=== PATIENT | male | born 1950 | race Caucasian/White ===

== ENCOUNTER 2023-08-30 08:54 | Outpatient (RCR) | payer MEDICARE, OTHER, SELFPAY ==
[2023-08-30 09:55] VITALS: BP 106/66; PULSE 76; RESP 18; TEMP 35.9; BMI 29.0
--- NOTE | 2023-08-30 10:40 | HP.PCM_ITS ---
History of Present Illness Date of Service: 08/30/23 Progress of Wound: 73-year-old male with a history of previously uncontrolled type 2 diabetes. Patient reports that his blood sugar daily basis now runs typically subone 50 and a recent A1c of 7.2. He presents today for right diabetic foot ulceration with infection. Patient denies any fever chills nausea vomiting chest pain calf pain shortness of breath. Patient notes that he does not have much feeling in his feet and rubbed a wound into his right foot when he went for a long walk in tight shoes. Since that time he has been seen by his primary care doctor who put him on antibiotics and had him perform daily foot soaks and application of antibiotic ointment. Patient presents today for further workup evaluation and treatment. 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 PFSH Allergy/AdvReac Type Severity Reaction Status Date / Time No Known Allergies Allergy Verified 08/30/23 09:55 Social History Smoking Status: Former smoker ROS Constitutional Constitutional: Denies body ache(s), change in weight or fever(s) Eyes Eyes: Denies acute decrease in peripheral vision, change in eye color or change in vision ENT HEENT: Denies abnormal hearing, bleeding gums or dysphagia Cardiovascular Cardiovascular: Reports edema and erythema on extremities Gastrointestinal Gastrointestinal: Denies belching, bloating or coffee ground emesis Genitourinary Genitourinary: Denies abdominal discomfort, anuria or difficulty urinating Musculoskeletal Musculoskeletal: Denies atrophy, back pain or joint swelling Vital Signs Vital Signs Vital Signs: 08/30/23 09:55 Temperature 96.7 F L Temperature Source Temporal Pulse Rate 76 Respiratory Rate 18 Blood Pressure 106/66 Blood Pressure Mean 79 Blood Pressure Source Monitor Blood Pressure Position Semi-Fowlers Blood Pressure Location Left Arm Weight Weight: 81.647 kg Body Mass Index (BMI) 29.0 Physical Exam Narrative Vascular: Dorsalis pedis and posterior tibial pulses to the right lower extremity are biphasic upon Doppler examination. There is diffuse pitting edema to the right lower extremity. Focal increase in warmth to right foot. Absent digital hair growth noted with shiny taut appearance of skin. Neurologic: Absent light touch protective sensation of bilateral feet. Dermatologic: Full-thickness wound to plantar heel down to subcutaneous tissue. Full-thickness wound to fifth metatarsal head and fifth toe down to level of bone with diffuse necrosis predebridement. Full-thickness wound to dorsal first metatarsal head. This necrotic predebridement. Full-thickness wound to the right fourth toe extending to the fourth interspace. All wounds demonstrate mild periwound erythema edema focal increase in warmth. Wound to the fifth metatarsal head and fifth toe are extend down to level bone with diffuse necrosis. Postdebridement wound demonstrates some granular bleeding. Pre and postdebridement measurements of all wounds documented in nursing notes. No evidence of deep purulence or abscess at this time. Musculoskeletal no evidence of wound forming deformity noted. Muscular strength full. No sign DVT. Const alert and oriented x3 Debridement Note Debridement Note Post-Debridement Measurements and Additional Note: Post-Debridement Measurements/Treatment - Nurse 1 - General Ulcer Assessment Start: 08/30/23 09:55 Freq: Status: Active Protocol: [email or web address] Activity Type Activity Date Activity User E-sign Co-sign Detail Recorded Client Recorded Date Recorded By Document 08/30/23 09:55 wound center 08/30/23 10:06 RB 08/30/23 09:55 - Today's Visit Information Type of service Initial Visit Arrival Mode Ambulatory Transfer Assistance None Patient Identification Verified (Name & Yes ) Patient Requires Transmission-Based No Precautions Finger Stick Blood Sugar(mg/dl) (if 110 indicated): Blood Sugar Stated by Patient Height and Weight Height 5 ft 6 in Weight 81.647 kg Weight in Pounds 180.0 lbs Body Mass Index (BMI) 29.0 BMI Classification Overweight BSA - [place]reyda 1.91 Vital Signs Temperature (97.8 F-99.1 F) 96.7 F L Temperature Source Temporal Pulse Rate (60-100) 76 Pulse Location Monitor Respiratory Rate (12-18) 18 Respiratory rate source Observation Blood Pressure (90/60-120/80) 106/66 Blood Pressure Mean 79 Source Monitor Position Semi-Fowlers Blood Pressure Location Left Arm History Since Last Visit- (Skip if this is Patient's initial visit) Have you changed medications since your No last visit? Any new allergies or adverse reactions No Had a fall/change in ADL's that may No increase risk of falls Signs or symptoms of abuse and/or No neglect since last visit Have you been in the hospital since your No last visit? Has dressing in place as prescribed Yes Has compression in place as prescribed No Has offloadiing in place as prescribed No Experienced any changes in pain level or No management Pain Scale: 0-10 Numeric Is Patient Pain Free? No R foot -Description Aching -Intensity 2 -Duration (hours) Acute -Pain Behavior Irritability -Pain Aggravating Factors Exercise/ Activity -Alleviating Factors/Interventions Medication -Effectiveness of Alleviating Factor/ Moderately Intervention effective Lower Extremity Assessment/ Foot Assessment/ Toe Nail Assessment Right -Posterior Tibial Doppler Multiphasic -Dorsalis Pedis Doppler Multiphasic -Extremity Color Red -Hair Growth on Legs No -Hair Growth on Toes No -Temperature of Extremity Hot -Capillary Refill Less than 3 Seconds -Dependent Rubor No -Other Deformity No -Prior Foot Ulcer No -Charcot Joint No -Prior Amputation No -Thick No -Discolored No -Deformed No -Improper Length & Hygeine Yes Left -Posterior Tibial Doppler Multiphasic -Dorsalis Pedis Doppler Multiphasic -Extremity Color Normal -Hair Growth on Legs No -Hair Growth on Toes No -Temperature of Extremity Warm -Capillary Refill Less than 3 Seconds -Dependent Rubor No -Blanched when Elevated No -Lipodermatosclerosis No -Other Deformity No -Prior Foot Ulcer No -Charcot Joint No -Prior Amputation No -Thick No -Discolored No -Deformed No -Improper Length & Hygeine Yes Neuropathy Assessment Feet - Top Side and Bottom <Entered> (a) Communication Assessment Preferred language [place] [employer] Facilities Rental Manager Required No Able to Read Yes Able to Write Yes Communication Tools None Right Hearing Abillity Hard of Hearing ,Use of Hearing Aid Left Hearing Abillity Hard of Hearing ,Use of Hearing Aid Visual Assistive Devices Glasses Functional Assessment Recent Decline in Ability to Perform Denies Any Declines Assistive Device With Patient No Culture/Yarsani/Centrifugal Chiller Technician Cultural/Yarsani Needs that may affect No Treatment Plan Would you allow our hospital cover assembler to No meet you for the purpose of spiritual/ emotional support? Centrifugal Chiller Technician to contact place of congregation No Teaching: Wound Center *Welcome to the Wound Center -Person Taught Patient,Family -Teaching Method Discussion -Response to teaching Verbalize understanding (a) 1 - + throughtout 2 - -throughout WC - Nurse 1 - General Ulcer Measurement Start: 08/30/23 09:55 Freq: Status: Active Protocol: Activity Type Activity Date Activity User E-sign Co-sign Detail Recorded Client Recorded Date Recorded By Document 08/30/23 09:55 RB wound center 08/30/23 10:06 RB 08/30/23 09:55 Wound Center Nurse 1 5. R 5th toe/ lateral foot -Combined with other wound No -Current Size (cm) - Length 6 -Current Size (cm) - Width 3 -Current Size (cm) - Depth 0.1 -Total Square Cm 18 -Photo Taken Yes -Epithelialization None Present -Tunneling No -Undermining/Tunneling No -Circular Undermining No -Exudate Amt Medium -Exudate Type Serosanguineous -Wound Margin Distinct, Outline Attached -Granulation Amt Small (1-33%) -Granulation Quality N/A -Slough/Fibrin Yes -Necrosis Amt Medium (34-66%) -Necrotic Tissue Type Eschar -Structure Exposed N/A -Texture (Shikha-wound Skin Appearance) Localized Edema -Moisture (Shikha-wound Skin Appearance) Maceration -Color (Shikha-wound Skin Appearance) Erythema -Temperature (Shikha-wound Skin No Abnormality Appearance) (Pt Warm) -Tenderness on Palpation (Shikha-wound No Skin Appearance) -Ulcer Cleansing Wound Cleanser -Foul Odor after Cleansing Yes, Due to Product Use -Anesthetic Used 4% Lidocaine Solution 4. R 4th toe -Combined with other wound No -Current Size (cm) - Length 1 -Current Size (cm) - Width 1 -Current Size (cm) - Depth 0.1 -Total Square Cm 1 -Photo Taken Yes -Tunneling No -Undermining/Tunneling No -Circular Undermining No -Exudate Amt Medium -Exudate Type Serosanguineous -Wound Margin Distinct, Outline Attached -Granulation Amt Medium (34-66%) -Granulation Quality [place] -Slough/Fibrin Yes -Necrosis Amt Large (67-100%) -Necrotic Tissue Type Adherent Slough -Structure Exposed N/A -Texture (Shikha-wound Skin Appearance) Assessed -Moisture (Shikha-wound Skin Appearance) Maceration -Color (Shikha-wound Skin Appearance) Erythema -Temperature (Shikha-wound Skin No Abnormality Appearance) (Pt Warm) -Tenderness on Palpation (Shikha-wound No Skin Appearance) -Ulcer Cleansing Wound Cleanser -Foul Odor after Cleansing No -Anesthetic Used 4% Lidocaine Solution 3. R 3rd toe -Combined with other wound No -Current Size (cm) - Length 3 -Current Size (cm) - Width 2 -Current Size (cm) - Depth 0.1 -Total Square Cm 6 -Photo Taken Yes -Tunneling No -Undermining/Tunneling No -Circular Undermining No -Exudate Amt Medium -Exudate Type Serosanguineous -Wound Margin Distinct, Outline Attached -Granulation Amt Medium (34-66%) -Granulation Quality [place] -Slough/Fibrin Yes -Necrosis Amt Medium (34-66%) -Necrotic Tissue Type Adherent Slough -Structure Exposed N/A -Texture (Shikha-wound Skin Appearance) Assessed -Moisture (Shikha-wound Skin Appearance) Assessed, Weeping -Color (Shikha-wound Skin Appearance) Erythema -Temperature (Shikha-wound Skin No Abnormality Appearance) (Pt Warm) -Tenderness on Palpation (Shikha-wound No Skin Appearance) -Ulcer Cleansing Wound Cleanser -Foul Odor after Cleansing No -Anesthetic Used 4% Lidocaine Solution 2. R heel -Combined with other wound No -Current Size (cm) - Length 2.5 -Current Size (cm) - Width 3.3 -Current Size (cm) - Depth 0.1 -Total Square Cm 8.25 -Photo Taken Yes -Tunneling No -Undermining/Tunneling No -Circular Undermining No -Exudate Amt Medium -Exudate Type Serosanguineous -Wound Margin Distinct, Outline Attached -Granulation Amt Large (67-100%) -Granulation Quality [place] -Slough/Fibrin Yes -Necrosis Amt Medium (34-66%) -Necrotic Tissue Type Adherent Slough -Structure Exposed N/A -Texture (Shikha-wound Skin Appearance) Assessed -Moisture (Shikha-wound Skin Appearance) No Abnormality -Color (Shikha-wound Skin Appearance) Assessed -Temperature (Shikha-wound Skin No Abnormality Appearance) (Pt Warm) -Ulcer Cleansing Wound Cleanser -Foul Odor after Cleansing No -Anesthetic Used 4% Lidocaine Solution 1. R foot medial -Combined with other wound No -Current Size (cm) - Length 1 -Current Size (cm) - Width 1.1 -Current Size (cm) - Depth 0.2 -Total Square Cm 1.1 -Photo Taken Yes -Tunneling No -Undermining/Tunneling No -Circular Undermining No -Exudate Amt Large -Exudate Type Serosanguineous -Wound Margin Distinct, Outline Attached -Granulation Amt Small (1-33%) -Granulation Quality [place] -Slough/Fibrin Yes -Necrosis Amt Large (67-100%) -Necrotic Tissue Type Adherent Slough -Structure Exposed N/A -Texture (Shikha-wound Skin Appearance) Localized Edema -Color (Shikha-wound Skin Appearance) Assessed, Erythema -Temperature (Shikha-wound Skin No Abnormality Appearance) (Pt Warm) -Tenderness on Palpation (Shikha-wound No Skin Appearance) -Ulcer Cleansing Wound Cleanser -Foul Odor after Cleansing No -Anesthetic Used 4% Lidocaine Solution Lower Limb Edema Present Yes Right Calf (cm) 35 Right Ankle (cm) 23 Left Calf (cm) 33.5 Left Ankle (cm) 22 Assessment/Plan Assessment/Plan (1) Cellulitis of right lower limb: CODE(S): L03.115 - Cellulitis of right lower limb PLAN: Exam performed. Patient has at minimum cellulitis. Patient is on Augmentin and Bactrim per primary care physician. Today radiographs of the right foot were ordered to rule out any deep infection such as osteomyelitis. Arterial and venous studies were ordered for baseline purposes. Wound to the right fifth metatarsal head and fifth toe were excisionally debrided down to and including level of bone while the remaining wounds were all debrided down to level of subcutaneous tissue of all nonviable tissue using a pickup 15 blade and 7 mm dermal curette. No anesthesia due to neuropathy. Pre and postdebridement measurements documented nursing notes. Hemostasis obtained with light compression. Patient tolerated procedure well. Wound flushed and cultured. Will continue current antibiotics and recommend changes based on culture results. Recommend discontinuation of daily foot soaks. Today patient was dressed with Betadine gauze dry sterile dressing and double Tubigrip. Patient will perform these dressings on a daily basis per self-care. Patient will maintain protected weightbearing in a surgical shoe with minimal weight to right foot assisted by a walker. Ultimately I am recommending nonweightbearing and minimal ambulation. Patient follow-up in 1 week if there is any worsening patient will go to the ER or will consider hospital admission on next follow-up visit. (2) Non-pressure chronic ulcer of other part of right foot with necrosis of bone: CODE(S): L97.514 - Non-pressure chronic ulcer of other part of right foot with necrosis of bone (3) Non-pressure chronic ulcer of other part of right foot with fat layer exposed: CODE(S): L97.512 - Non-pressure chronic ulcer of other part of right foot with fat layer exposed (4) Type 2 diabetes mellitus with diabetic polyneuropathy: CODE(S): E11.42 - Type 2 diabetes mellitus with diabetic polyneuropathy (5) Other specified peripheral vascular diseases: CODE(S): I73.89 - Other specified peripheral vascular diseases
--- NOTE | 2023-08-30 11:40 | RAD_ITS ---
STUDY: X-RAY - RIGHT FOOT CLINICAL: Male, 73 years old. WOUND TECHNIQUE: 3 views of the right foot. COMPARISON: None. FINDINGS: Intact talus, calcaneus, and tarsal bones. There are plantar and posterior calcaneal spurs. Normal visualized subtalar, talonavicular, calcaneocuboid, tarsal and tarsometatarsal articulations. Normal metatarsi. There is mild degenerative arthrosis at the first MTP joint. Normal tibial and fibular sesamoid bones. Normal interphalangeal joint of the great toe. Normal phalanges of the great toe. Normal second through fifth metatarsophalangeal joints. Normal interphalangeal joints and phalanges of the lesser toes. There is no demonstrated fracture. There is soft tissue swelling around the forefoot. There are atherosclerotic calcifications. 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 Soft tissue swelling around the forefoot. Plantar and posterior calcaneal spurs. Electronically Signed: Segun Sanders MD at 12:40 EDT ,
--- NOTE | 2023-09-01 11:44 | WC ---
08/30/2023 RIGHT MEDIAL FOOT
--- NOTE | 2023-09-01 11:53 | WC ---
08/30/2023 RIGHT 5TH TOE LATERAL FOOT
--- NOTE | 2023-09-01 11:56 | WC ---
08/30/2023 RIGHT 3RD TOE
== END 2023-09-02 23:59 | disposition home or self-care (01) ==
LOC: WC 08:54
PROVIDERS: PCP Family Medicine; Referring Provider Family Medicine; Visit Provider Podiatrist
DX: E11.621 Type 2 diabetes mellitus with foot ulcer (principal); L97.514 Non-pressure chronic ulcer of other part of right foot with necrosis of bone; L97.512 Non-pressure chronic ulcer of other part of right foot with fat layer exposed; E11.42 Type 2 diabetes mellitus with diabetic polyneuropathy; E11.51 Type 2 diabetes mellitus with diabetic peripheral angiopathy without gangrene; L03.115 Cellulitis of right lower limb; Z87.891 Personal history of nicotine dependence
CPT/HCPCS: 11042; 11044; 73630; 87070; 87075; 87205; 99204; G0463

== ENCOUNTER 2023-09-27 10:15 | Outpatient (RCR) | payer MEDICARE, OTHER, SELFPAY ==
[2023-09-03 02:41] VITALS: BP 106/66; PULSE 76; RESP 18; TEMP 35.9; BMI 29.0
[2023-09-06 10:00] VITALS: BP 141/63; PULSE 79; RESP 18; TEMP 35.9; BMI 29.0
--- NOTE | 2023-09-06 10:28 | PN.PCM_ITS ---
History of Present Illness Date of Service: 09/06/23 Progress of Wound: 73-year-old male with a history of previously uncontrolled type 2 diabetes. Patient reports that his blood sugar daily basis now runs typically subone 50 and a recent A1c of 7.2. He presents today for right diabetic foot ulceration with infection. Patient denies any fever chills nausea vomiting chest pain calf pain shortness of breath. Patient notes that he does not have much feeling in his feet and rubbed a wound into his right foot when he went for a long walk in tight shoes. Since that time he has been seen by his primary care doctor who put him on antibiotics and had him perform daily foot soaks and application of antibiotic ointment. Patient presents today for further workup evaluation and treatment. 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 No changes today. Objective Data Objective Data Vital Signs: Vital Signs Temp Pulse Resp BP 96.7 F L 79 18 141/63 H 09/06/23 10:00 09/06/23 10:00 09/06/23 10:00 09/06/23 10:00 Weight: 81.647 kg Body Mass Index (BMI) 29.0 Physical Exam Narrative Neurovascular status unchanged from previous visit. Dry stable eschar to the right fifth fourth and third toes extending down the level of bone. No acute signs of infection. Musculoskeletal: No evidence of wound forming deformities. Muscular strength full. No evidence DVT bilaterally. Debridement Note Debridement Note Post-Debridement Measurements and Additional Note: Post-Debridement Measurements/Treatment - Nurse 1 - General Ulcer Assessment Start: 09/06/23 09:59 Freq: Status: Active Protocol: [email or web address] Activity Type Activity Date Activity User E-sign Co-sign Detail Recorded Client Recorded Date Recorded By Document 09/06/23 10:00 wound center 09/06/23 10:05 RB 09/06/23 10:00 - Today's Visit Information Type of service Follow-up Visit (Physician/[facility] ) Arrival Mode Ambulatory Transfer Assistance None Patient Identification Verified (Name & Yes ) Patient Requires Transmission-Based No Precautions Height and Weight Body Mass Index (BMI) 29.0 BMI Classification Overweight Vital Signs Temperature (97.8 F-99.1 F) 96.7 F L Temperature Source Temporal Pulse Rate (60-100) 79 Pulse Location Monitor Respiratory Rate (12-18) 18 Respiratory rate source Observation Blood Pressure (90/60-120/80) 141/63 H Blood Pressure Mean (mm Hg) 89 Source Monitor Position Semi-Fowlers Blood Pressure Location Left Arm History Since Last Visit- (Skip if this is Patient's initial visit) Have you changed medications since your No last visit? Any new allergies or adverse reactions No Had a fall/change in ADL's that may No increase risk of falls Signs or symptoms of abuse and/or No neglect since last visit Have you been in the hospital since your No last visit? Has dressing in place as prescribed Yes Has compression in place as prescribed Yes Has offloadiing in place as prescribed No Experienced any changes in pain level or No management Pain Scale: 0-10 Numeric Is Patient Pain Free? Yes WC - Nurse 1 - General Ulcer Measurement Start: 09/06/23 09:59 Freq: Status: Active Protocol: Activity Type Activity Date Activity User E-sign Co-sign Detail Recorded Client Recorded Date Recorded By Document 09/06/23 10:00 wound center 09/06/23 10:05 RB 09/06/23 10:00 Wound Center Nurse 1 5. R 5th toe/ lateral foot -Combined with other wound No -Current Size (cm) - Length 4.5 -Current Size (cm) - Width 1.5 -Current Size (cm) - Depth 0.1 -Total Square Cm 6.75 -Tunneling No -Undermining/Tunneling No -Circular Undermining No -Exudate Amt Medium -Exudate Type Serosanguineous -Wound Margin Distinct, Outline Attached -Granulation Amt Small (1-33%) -Granulation Quality [place] -Slough/Fibrin Yes -Necrosis Amt Large (67-100%) -Necrotic Tissue Type Eschar -Structure Exposed N/A -Texture (Shikha-wound Skin Appearance) Assessed -Moisture (Shikha-wound Skin Appearance) Assessed -Color (Shikha-wound Skin Appearance) Erythema -Temperature (Shikha-wound Skin No Abnormality Appearance) (Pt Warm) -Tenderness on Palpation (Shikha-wound No Skin Appearance) -Ulcer Cleansing Wound Cleanser -Foul Odor after Cleansing No -Anesthetic Used 4% Lidocaine Solution 4. R 4th toe -Combined with other wound No -Current Size (cm) - Length 3 -Current Size (cm) - Width 1 -Current Size (cm) - Depth 0.2 -Total Square Cm 3 -Tunneling No -Undermining/Tunneling No -Circular Undermining No -Exudate Amt Medium -Exudate Type Serosanguineous -Wound Margin Distinct, Outline Attached -Granulation Amt Small (1-33%) -Granulation Quality [place] -Slough/Fibrin Yes -Necrosis Amt Medium (34-66%) -Necrotic Tissue Type Adherent Slough -Structure Exposed N/A -Texture (Shikha-wound Skin Appearance) Assessed -Moisture (Shikha-wound Skin Appearance) Assessed, Weeping -Color (Shikha-wound Skin Appearance) Assessed, Erythema -Temperature (Shikha-wound Skin No Abnormality Appearance) (Pt Warm) -Tenderness on Palpation (Shikha-wound No Skin Appearance) -Ulcer Cleansing Wound Cleanser -Foul Odor after Cleansing No -Anesthetic Used 4% Lidocaine Solution 3. R 3rd toe -Combined with other wound No -Current Size (cm) - Length 0.8 -Current Size (cm) - Width 0.5 -Current Size (cm) - Depth 0.2 -Total Square Cm 0.40 -Tunneling No -Undermining/Tunneling No -Circular Undermining No -Exudate Amt Medium -Exudate Type Serosanguineous -Wound Margin Distinct, Outline Attached -Granulation Amt Small (1-33%) -Granulation Quality [place] -Slough/Fibrin Yes -Necrosis Amt Medium (34-66%) -Necrotic Tissue Type Adherent Slough -Structure Exposed N/A -Texture (Shikha-wound Skin Appearance) Assessed -Moisture (Shikha-wound Skin Appearance) Weeping -Color (Shikha-wound Skin Appearance) Assessed, Erythema -Temperature (Shikha-wound Skin No Abnormality Appearance) (Pt Warm) -Tenderness on Palpation (Shikha-wound No Skin Appearance) -Ulcer Cleansing Wound Cleanser -Foul Odor after Cleansing No -Anesthetic Used 4% Lidocaine Solution 2. R heel -Combined with other wound No -Current Size (cm) - Length 2.5 -Current Size (cm) - Width 3.6 -Current Size (cm) - Depth 0.1 -Total Square Cm 9.00 -Tunneling No -Undermining/Tunneling No -Circular Undermining No -Exudate Amt Medium -Exudate Type Serosanguineous -Wound Margin Distinct, Outline Attached -Granulation Amt Medium (34-66%) -Granulation Quality [place] -Slough/Fibrin Yes -Necrosis Amt Medium (34-66%) -Necrotic Tissue Type Adherent Slough -Structure Exposed N/A -Texture (Shikha-wound Skin Appearance) Assessed -Moisture (Shikha-wound Skin Appearance) Assessed -Color (Shikha-wound Skin Appearance) Assessed -Temperature (Shikha-wound Skin No Abnormality Appearance) (Pt Warm) -Tenderness on Palpation (Shikha-wound No Skin Appearance) -Ulcer Cleansing Wound Cleanser -Foul Odor after Cleansing No -Anesthetic Used 4% Lidocaine Solution 1. R foot medial -Combined with other wound No -Current Size (cm) - Length 0.6 -Current Size (cm) - Width 2 -Current Size (cm) - Depth 0.1 -Total Square Cm 1.2 -Tunneling No -Undermining/Tunneling No -Circular Undermining No -Exudate Amt Medium -Exudate Type Serosanguineous -Wound Margin Distinct, Outline Attached -Granulation Amt Medium (34-66%) -Granulation Quality [place] -Slough/Fibrin Yes -Necrosis Amt Medium (34-66%) -Necrotic Tissue Type Eschar -Structure Exposed N/A -Texture (Shikha-wound Skin Appearance) Assessed -Moisture (Shikha-wound Skin Appearance) Assessed -Color (Shikha-wound Skin Appearance) Assessed -Temperature (Shikha-wound Skin No Abnormality Appearance) (Pt Warm) -Tenderness on Palpation (Shikha-wound No Skin Appearance) -Ulcer Cleansing Wound Cleanser -Foul Odor after Cleansing No -Anesthetic Used 4% Lidocaine Solution Lower Limb Edema Present Yes Right Calf (cm) 35 Right Ankle (cm) 20 WC - Nurse 2 - General Ulcer CM Notes Start: 09/06/23 09:59 Freq: Status: Active Protocol: Activity Type Activity Date Activity User E-sign Co-sign Detail Recorded Client Recorded Date Recorded By Document 09/06/23 10:16 [id number] 09/06/23 10:18 LO 09/06/23 10:16 Wound Center Nurse 2 5. R 5th toe/ lateral foot -Correct Patient No -Correct Side, Site, Position No -Correct Procedure No -Procedure Performed No -Wound/Ulcer Outcome Not Healed 4. R 4th toe -Correct Patient No -Correct Side, Site, Position No -Correct Procedure No -Procedure Performed No -Wound/Ulcer Outcome Not Healed 3. R 3rd toe -Correct Patient No -Correct Side, Site, Position No -Correct Procedure No -Procedure Performed No -Wound/Ulcer Outcome Not Healed 2. R heel -Correct Patient No -Correct Side, Site, Position No -Correct Procedure No -Procedure Performed No -Wound/Ulcer Outcome Not Healed 1. R foot medial -Correct Patient No -Correct Side, Site, Position No -Correct Procedure No -Procedure Performed No -Wound/Ulcer Outcome Not Healed Pain Scale: 0-10 Numeric Is Patient Pain Free? Yes - Nurse 3 - General Ulcer D/C NN Start: 09/06/23 09:59 Freq: Status: Active Protocol: Activity Type Activity Date Activity User E-sign Co-sign Detail Recorded Client Recorded Date Recorded By Document 09/06/23 10:23 wound center 09/06/23 10:25 KW 09/06/23 10:23 Wound Care Center Nurse 3 5. R 5th toe/ lateral foot -Other Dressing BETADINE GAUZE -Primary Dressing Covered/Secured with Dry Gauze & Roll Gauze 4. R 4th toe -Other Dressing BETADINE GAUZE -Primary Dressing Covered/Secured with Dry Gauze & Roll Gauze, Secured with Tape 3. R 3rd toe -Other Dressing BETADINE GAUZE -Primary Dressing Covered/Secured with Dry Gauze & Roll Gauze, Secured with Tape 2. R heel -Other Dressing BETADINE GAUZE -Primary Dressing Covered/Secured with Dry Gauze & Roll Gauze, Secured with Tape 1. R foot medial -Other Dressing BETADINE GAUZE -Primary Dressing Covered/Secured with Dry Gauze & Roll Gauze, Secured with Tape Right -Tubular Bandage Single Layer -Size of Tubigrip Used Size D -Size D ($) 1 Pain Scale: 0-10 Numeric Is Patient Pain Free? Yes - Visit Discharge Discharge Condition Stable Ambulatory Status Ambulatory Transportation Private Auto Medication Reconcilliation completed & No provided to patient/care provider Clinical Summary of Care Provided Yes Assessment/Plan Assessment/Plan (1) Cellulitis of right lower limb: CODE(S): L03.115 - Cellulitis of right lower limb PLAN: Exam performed. Wound cultures negative for growth. Patient will complete course of Bactrim/Augmentin. Radiographs negative for osteomyelitis. Arterial and venous studies -pending. Recommend discontinuation of daily foot soaks. Today patient was dressed with Betadine gauze dry sterile dressing and double Tubigrip. Patient will perform these dressings on a daily basis per self-care. Patient will maintain protected weightbearing in a surgical shoe with minimal weight to right foot assisted by a walker. Ultimately I am recommending nonweightbearing and minimal ambulation. Patient follow-up in 1 week if there is any worsening patient will go to the ER Patient will likely require vascular intervention pending arterial studies. A definitive amputation may need to be performed upon revascularization for definitive soft tissue closure. Will delay debridement until vascular status determined definitively. (2) Non-pressure chronic ulcer of other part of right foot with necrosis of bone: CODE(S): L97.514 - Non-pressure chronic ulcer of other part of right foot with necrosis of bone (3) Non-pressure chronic ulcer of other part of right foot with fat layer exposed: CODE(S): L97.512 - Non-pressure chronic ulcer of other part of right foot with fat layer exposed (4) Type 2 diabetes mellitus with diabetic polyneuropathy: CODE(S): E11.42 - Type 2 diabetes mellitus with diabetic polyneuropathy (5) Other specified peripheral vascular diseases: CODE(S): I73.89 - Other specified peripheral vascular diseases
--- NOTE | 2023-09-09 09:29 | ART_ITS ---
Reason For Study: RLE Wound Procedure A bilateral lower extremity continuous wave Doppler with analog waveform analysis,segmental pressures,and ankle brachial indexes without exercise. Left Segmental Pressures Left brachial= 158mmHg. Left posterior tibial artery = 186mmHg. Left dorsalis pedis artery = 212mmHg. Left digit = 129 mmHg. The left posterior tibial artery waveforms are biphasic. The left dorsalis pedis waveforms are triphasic. Right Segmental Pressures Right brachial= 168mmHg. Right posterior tibial artery = 190mmHg. Right dorsalis pedis artery = 201mmHg. Right digit = 113 mmHg. The right posterior tibial artery waveforms are biphasic. The right dorsalis pedis waveforms are biphasic. Indices The right ankle brachial index by the posterior tibial artery is 1.13. The right ankle brachial index by the dorsalis pedis is 1.20. The right digital-brachial index is 0.67. The left ankle brachial index by the posterior tibial artery is 1.11. The left ankle brachial index by the dorsalis pedis is 1.26. The left digital-brachial index is 0.77. VL/Lower Ext Art Exam w/o Exercis Interpretation Summary Biphasic Doppler waveforms are noted at ankle level on the right. Biphasic and triphasic Doppler waveforms are noted at ankle level on the left. Pulse-volume recordings appear satisfactory at all levels bilaterally. Resting ankle-brachial indices are normal bilaterally. The right digital- brachial index is mildly diminished. The left digital-brachial index is normal. Arterial flow appears normal at ankle level bilaterally, and at digital level o n the left. There is evidence of mild arterial occlusive disease at digital level on the right. Ordering Physician: Valerio Green Referring Physician: Phi Ross Performed By: Roberto Oliveira RVDonis
--- NOTE | 2023-09-09 09:30 | VDLE_ITS ---
Reason For Study: Edema RIGHT LEFT GSV is normal. CFV is compressible, spontaneous, phasic, CFV is compressible, spontaneous, phasic, competent, and demonstrates normal competent and demonstrates normal augmentation. augmentation. FV is compressible, spontaneous, phasic, competent and demonstrates normal augmentation. POP V is compressible, spontaneous, phasic, competent and demonstrates normal augmentation. T/P Trunk is compressible. PTV is compressible. RT PerV is compressible. SFJ is competent and measures 0.52 cm. HX RLE GSV [place] for CABG SSV Prox calf measures approximately 0.22 x 0.24cm. Vein wall thickening noted throughout. Unable to assess for reflux due to diminished vessel diameter. Procedure This is a venous duplex using B-mode, color flow and spectral Doppler. Exam performed in department. The exam was diagnostic. VL/Venous Duplex US - Oswald Extrem Interpretation Summary Deep veins of the right lower extremity are patent and compressible segmentally . There is no evidence of right lower extremity deep vein thrombosis. Valvular competence juany ears intact within the proximal deep venous system on the right . The right great saphenous vein i s absent, having been previously harvested. The right small saphenous vein is patent and demonstrates chronic vein wall thickening. The left common femoral vein is patent and compressible . Ordering Physician: Valerio Green Referring Physician: Jose Ross Performed By: Roberto Oliveira RVT
[2023-09-13 10:02] VITALS: BP 157/72; PULSE 74; RESP 18; TEMP 35.7; BMI 29.0
--- NOTE | 2023-09-13 10:41 | PCM.WC.PN ---
History of Present Illness Date of Service: 09/13/23 Progress of Wound: 73-year-old male with a history of previously uncontrolled type 2 diabetes. Patient reports that his blood sugar daily basis now runs typically subone 50 and a recent A1c of 7.2. He presents today for right diabetic foot ulceration with infection. Patient denies any fever chills nausea vomiting chest pain calf pain shortness of breath. Patient notes that he does not have much feeling in his feet and rubbed a wound into his right foot when he went for a long walk in tight shoes. Since that time he has been seen by his primary care doctor who put him on antibiotics and had him perform daily foot soaks and application of antibiotic ointment. Patient presents today for further workup evaluation and treatment. 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 No changes today. Objective Data Objective Data Vital Signs: Vital Signs Temp Pulse Resp BP O2 Del Method 96.3 F L 74 18 157/72 H Room Air 09/13/23 10:02 09/13/23 10:09/13/23 10:02 09/13/23 10:02 09/13/23 10:02 Oxygen Delivery Method Room Air Weight: 81.647 kg Body Mass Index (BMI) 29.0 Debridement Note Debridement Note Post-Debridement Measurements and Additional Note: Post-Debridement Measurements/Treatment - Nurse 1 - General Ulcer Assessment Start: 09/06/23 09:59 Freq: Status: Active Protocol: WC.LOWEXDonis Activity Type Activity Date Activity User E-sign Co-sign Detail Recorded Client Recorded Date Recorded By Document 09/06/23 10:00 RB wound center 09/06/23 10:05 RB Document 09/13/23 10:02 KW wound center 09/13/23 10:16 KW 09/06/23 09/13/23 10:00 10:02 - Today's Visit Information Type of service Follow-up Visit Follow-up Visit (Physician/EXCHANGE OPERATOR (Physician/EXCHANGE OPERATOR ) ) Arrival Mode Ambulatory Ambulatory Transfer Assistance None Accompanied by Patient Identification Verified (Name & Yes Yes ) Patient Requires Transmission-Based No Precautions Height and Weight Body Mass Index (BMI) 29.0 29.0 BMI Classification Overweight Overweight Vital Signs Temperature (97.8 F-99.1 F) 96.7 F L 96.3 F L Temperature Source Temporal Temporal Pulse Rate (60-100) 79 74 Pulse Location Monitor Monitor Respiratory Rate (12-18) 18 18 Respiratory rate source Observation Observation Oxygen Delivery Method Room Air Blood Pressure (90/60-120/80) 141/63 H 157/72 H Blood Pressure Mean (mm Hg) 89 100 Source Monitor Monitor Position Semi-Fowlers Sitting Blood Pressure Location Left Arm Left Arm History Since Last Visit- (Skip if this is Patient's initial visit) Have you changed medications since your No No last visit? Any new allergies or adverse reactions No No Had a fall/change in ADL's that may No No increase risk of falls Signs or symptoms of abuse and/or No No neglect since last visit Have you been in the hospital since your No No last visit? Has dressing in place as prescribed Yes Yes Has compression in place as prescribed Yes Yes Has offloadiing in place as prescribed No Yes Experienced any changes in pain level or No No management Left Footwear Regular Shoe Right Footwear Surgical Shoe with pressure relief insole Pain Scale: 0-10 Numeric Is Patient Pain Free? Yes Yes - Nurse 1 - General Ulcer Measurement Start: 09/06/23 09:59 Freq: Status: Active Protocol: Activity Type Activity Date Activity User E-sign Co-sign Detail Recorded Client Recorded Date Recorded By Document 09/06/23 10:00 RB wound center 09/06/23 10:05 RB Document 09/13/23 10:02 KW wound center 09/13/23 10:16 KW 09/06/23 09/13/23 10:00 10:02 Wound Center Nurse 1 5. R 5th toe/ lateral foot -Combined with other wound No -Current Size (cm) - Length 4.5 5.2 -Current Size (cm) - Width 1.5 3.4 -Current Size (cm) - Depth 0.1 0.2 -Total Square Cm 6.75 17.68 -Tunneling No -Undermining/Tunneling No -Circular Undermining No -Exudate Amt Medium Small -Exudate Type Serosanguineous Serosanguineous -Wound Margin Distinct, Distinct, Outline Outline Attached Attached -Granulation Amt Small (1-33%) Small (1-33%) -Granulation Quality [place] -Slough/Fibrin Yes -Necrosis Amt Large (67-100%) Large (67-100%) -Necrotic Tissue Type Eschar Eschar -Structure Exposed N/A -Texture (Shikha-wound Skin Appearance) Assessed Assessed, Localized Edema -Moisture (Shikha-wound Skin Appearance) Assessed Assessed -Color (Shikha-wound Skin Appearance) Erythema Assessed, Erythema -Temperature (Shikha-wound Skin No Abnormality No Abnormality Appearance) (Pt Warm) (Pt Warm) -Tenderness on Palpation (Shikha-wound No Skin Appearance) -Ulcer Cleansing Wound Cleanser Soap and Water -Foul Odor after Cleansing No No -Anesthetic Used 4% Lidocaine 5% Lidocaine Solution Gel 4. R 4th toe -Combined with other wound No -Current Size (cm) - Length 3 0.1 -Current Size (cm) - Width 1 0.1 -Current Size (cm) - Depth 0.2 0.1 -Total Square Cm 3 0.01 -Tunneling No -Undermining/Tunneling No -Circular Undermining No -Exudate Amt Medium -Exudate Type Serosanguineous -Wound Margin Distinct, Indistinct, Non Outline -Visible Attached -Granulation Amt Small (1-33%) Small (1-33%) -Granulation Quality [place] -Slough/Fibrin Yes -Necrosis Amt Medium (34-66%) Large (67-100%) -Necrotic Tissue Type Adherent Slough Adherent Slough -Structure Exposed N/A -Texture (Shikha-wound Skin Appearance) Assessed Assessed -Moisture (Shikha-wound Skin Appearance) Assessed, Assessed Weeping -Color (Shikha-wound Skin Appearance) Assessed, Assessed Erythema -Temperature (Shikha-wound Skin No Abnormality No Abnormality Appearance) (Pt Warm) (Pt Warm) -Tenderness on Palpation (Shikha-wound No No Skin Appearance) -Ulcer Cleansing Wound Cleanser Soap and Water -Foul Odor after Cleansing No No -Anesthetic Used 4% Lidocaine 5% Lidocaine Solution Gel -Wound Comment(s) wound difficult to measure 3. R 3rd toe -Combined with other wound No -Current Size (cm) - Length 0.8 0.4 -Current Size (cm) - Width 0.5 0.3 -Current Size (cm) - Depth 0.2 0.1 -Total Square Cm 0.40 0.12 -Tunneling No -Undermining/Tunneling No -Circular Undermining No -Exudate Amt Medium Small -Exudate Type Serosanguineous Serosanguineous -Wound Margin Distinct, Distinct, Outline Outline Attached Attached -Granulation Amt Small (1-33%) -Granulation Quality [place] -Slough/Fibrin Yes -Necrosis Amt Medium (34-66%) Large (67-100%) -Necrotic Tissue Type Adherent Slough Adherent Slough -Structure Exposed N/A -Texture (Shikha-wound Skin Appearance) Assessed Assessed, Localized Edema -Moisture (Shikha-wound Skin Appearance) Weeping Assessed -Color (Shikha-wound Skin Appearance) Assessed, Assessed, Erythema Erythema -Temperature (Shikha-wound Skin No Abnormality Appearance) (Pt Warm) -Tenderness on Palpation (Shikha-wound No Skin Appearance) -Ulcer Cleansing Wound Cleanser Soap and Water -Foul Odor after Cleansing No No -Anesthetic Used 4% Lidocaine 5% Lidocaine Solution Gel 2. R heel -Combined with other wound No -Current Size (cm) - Length 2.5 2 -Current Size (cm) - Width 3.6 2.2 -Current Size (cm) - Depth 0.1 0.1 -Total Square Cm 9.00 4.4 -Epithelialization Medium 34-66% -Tunneling No -Undermining/Tunneling No -Circular Undermining No -Exudate Amt Medium Small -Exudate Type Serosanguineous Serosanguineous -Wound Margin Distinct, Distinct, Outline Outline Attached Attached -Granulation Amt Medium (34-66%) -Granulation Quality [place] -Slough/Fibrin Yes -Necrosis Amt Medium (34-66%) Large (67-100%) -Necrotic Tissue Type Adherent Slough Adherent Slough -Structure Exposed N/A -Texture (Shikha-wound Skin Appearance) Assessed Assessed -Moisture (Shikha-wound Skin Appearance) Assessed Assessed,Dry/ Scaly -Color (Shikha-wound Skin Appearance) Assessed Assessed, Erythema -Temperature (Shikha-wound Skin No Abnormality No Abnormality Appearance) (Pt Warm) (Pt Warm) -Tenderness on Palpation (Shikha-wound No No Skin Appearance) -Ulcer Cleansing Wound Cleanser Soap and Water -Foul Odor after Cleansing No -Anesthetic Used 4% Lidocaine 5% Lidocaine Solution Gel 1. R foot medial -Combined with other wound No -Current Size (cm) - Length 0.6 1 -Current Size (cm) - Width 2 2 -Current Size (cm) - Depth 0.1 0.1 -Total Square Cm 1.2 2 -Tunneling No -Undermining/Tunneling No -Circular Undermining No -Exudate Amt Medium Small -Exudate Type Serosanguineous Serosanguineous -Wound Margin Distinct, Distinct, Outline Outline Attached Attached -Granulation Amt Medium (34-66%) -Granulation Quality [place] -Slough/Fibrin Yes -Necrosis Amt Medium (34-66%) Large (67-100%) -Necrotic Tissue Type Eschar Eschar -Structure Exposed N/A -Texture (Shikha-wound Skin Appearance) Assessed Assessed, Localized Edema -Moisture (Shikha-wound Skin Appearance) Assessed Assessed -Color (Shikha-wound Skin Appearance) Assessed Assessed, Erythema -Temperature (Shikha-wound Skin No Abnormality No Abnormality Appearance) (Pt Warm) (Pt Warm) -Tenderness on Palpation (Shikha-wound No No Skin Appearance) -Ulcer Cleansing Wound Cleanser Soap and Water -Foul Odor after Cleansing No No -Anesthetic Used 4% Lidocaine 5% Lidocaine Solution Gel Lower Limb Edema Present Yes Right Calf (cm) 35 33 Right Ankle (cm) 20 23.5 WC - Nurse 2 - General Ulcer CM Notes Start: 09/06/23 09:59 Freq: Status: Active Protocol: Activity Type Activity Date Activity User E-sign Co-sign Detail Recorded Client Recorded Date Recorded By Document 09/06/23 10:16 [id number] 09/06/23 10:18 Document 09/13/23 10:29 [id number] 09/13/23 10:33 09/06/23 09/13/23 10:16 10:29 Wound Center Nurse 2 5. R 5th toe/ lateral foot -Correct Patient No No -Correct Side, Site, Position No No -Correct Procedure No No -Procedure Performed No No -Wound/Ulcer Outcome Not Healed Not Healed 4. R 4th toe -Correct Patient No No -Correct Side, Site, Position No No -Correct Procedure No No -Procedure Performed No No -Wound/Ulcer Outcome Not Healed Not Healed 3. R 3rd toe -Correct Patient No No -Correct Side, Site, Position No No -Correct Procedure No No -Procedure Performed No No -Wound/Ulcer Outcome Not Healed Not Healed 2. R heel -Correct Patient No No -Correct Side, Site, Position No No -Correct Procedure No No -Procedure Performed No No -Wound/Ulcer Outcome Not Healed Not Healed 1. R foot medial -Correct Patient No No -Correct Side, Site, Position No No -Correct Procedure No No -Procedure Performed No No -Wound/Ulcer Outcome Not Healed Not Healed Pain Scale: 0-10 Numeric Is Patient Pain Free? Yes Yes - Nurse 3 - General Ulcer D/C NN Start: 09/06/23 09:59 Freq: Status: Active Protocol: Activity Type Activity Date Activity User E-sign Co-sign Detail Recorded Client Recorded Date Recorded By Document 09/06/23 10:23 wound center 09/06/23 10:25 09/06/23 10:23 Wound Care Center Nurse 3 5. R 5th toe/ lateral foot -Other Dressing BETADINE GAUZE -Primary Dressing Covered/Secured with Dry Gauze & Roll Gauze 4. R 4th toe -Other Dressing BETADINE GAUZE -Primary Dressing Covered/Secured with Dry Gauze & Roll Gauze, Secured with Tape 3. R 3rd toe -Other Dressing BETADINE GAUZE -Primary Dressing Covered/Secured with Dry Gauze & Roll Gauze, Secured with Tape 2. R heel -Other Dressing BETADINE GAUZE -Primary Dressing Covered/Secured with Dry Gauze & Roll Gauze, Secured with Tape 1. R foot medial -Other Dressing BETADINE GAUZE -Primary Dressing Covered/Secured with Dry Gauze & Roll Gauze, Secured with Tape Right -Tubular Bandage Single Layer -Size of Tubigrip Used Size D -Size D ($) 1 Pain Scale: 0-10 Numeric Is Patient Pain Free? Yes - Visit Discharge Discharge Condition Stable Ambulatory Status Ambulatory Transportation Private Auto Medication Reconcilliation completed & No provided to patient/care provider Clinical Summary of Care Provided Yes Assessment/Plan Assessment/Plan (1) Cellulitis of right lower limb: CODE(S): L03.115 - Cellulitis of right lower limb PLAN: Exam performed. Wound cultures negative for growth. Patient will complete course of Bactrim/Augmentin. Radiographs negative for osteomyelitis. Arterial and venous studies -arterial studies demonstrate diminished TBI's bilaterally. Will refer to vascular surgery for further workup. 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 Recommend discontinuation of daily foot soaks. Today patient was dressed with Betadine gauze dry sterile dressing and Tubigrip. Patient will perform these dressings on a daily basis per self-care. Patient will maintain protected weightbearing in a surgical shoe with minimal weight to right foot assisted by a walker. Ultimately I am recommending nonweightbearing and minimal ambulation. Patient follow-up in 2 weeks (2) Non-pressure chronic ulcer of other part of right foot with necrosis of bone: CODE(S): L97.514 - Non-pressure chronic ulcer of other part of right foot with necrosis of bone (3) Non-pressure chronic ulcer of other part of right foot with fat layer exposed: CODE(S): L97.512 - Non-pressure chronic ulcer of other part of right foot with fat layer exposed (4) Type 2 diabetes mellitus with diabetic polyneuropathy: CODE(S): E11.42 - Type 2 diabetes mellitus with diabetic polyneuropathy (5) Other specified peripheral vascular diseases: CODE(S): I73.89 - Other specified peripheral vascular diseases
[2023-09-27 10:16] VITALS: BP 124/59; PULSE 79; RESP 18; TEMP 36.1; BMI 29.0
--- NOTE | 2023-09-27 10:51 | PCM.WC.PN ---
History of Present Illness Date of Service: 09/27/23 Progress of Wound: 73-year-old male with a history of previously uncontrolled type 2 diabetes. Patient reports that his blood sugar daily basis now runs typically subone 50 and a recent A1c of 7.2. He presents today for right diabetic foot ulceration with infection. Patient denies any fever chills nausea vomiting chest pain calf pain shortness of breath. Patient notes that he does not have much feeling in his feet and rubbed a wound into his right foot when he went for a long walk in tight shoes. Since that time he has been seen by his primary care doctor who put him on antibiotics and had him perform daily foot soaks and application of antibiotic ointment. Patient presents today for further workup evaluation and treatment. 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 No changes today. Objective Data Objective Data Vital Signs: Vital Signs Temp Pulse Resp BP O2 Del Method 96.9 F L 79 18 124/59 H Room Air 09/27/23 10:16 09/27/23 10:16 09/27/23 10:16 09/27/23 10:16 09/13/23 10:02 Oxygen Delivery Method Room Air Weight: 81.647 kg Body Mass Index (BMI) 29.0 Physical Exam Narrative Neurovascular status unchanged from previous visit. Dry stable eschar to the right fifth fourth and heel toes extending down the level of bone. No acute signs of infection. Musculoskeletal: No evidence of wound forming deformities. Muscular strength full. No evidence DVT bilaterally. Debridement Note Debridement Note Post-Debridement Measurements and Additional Note: Post-Debridement Measurements/Treatment - Nurse 1 - General Ulcer Assessment Start: 09/06/23 09:59 Freq: Status: Active Protocol: NAOMI Activity Type Activity Date Activity User E-sign Co-sign Detail Recorded Client Recorded Date Recorded By Document 09/06/23 10:00 RB wound center 09/06/23 10:05 RB Document 09/13/23 10:02 KW wound center 09/13/23 10:16 KW Document 09/27/23 10:16 RB wound 09/27/23 10:28 RB 09/06/23 09/13/23 09/27/23 10:00 10:02 10:16 - Today's Visit Information Type of service Follow-up Visit Follow-up Visit Follow-up Visit (Physician/MUSHRO[employer]PAWN [employer]ER (Physician/MUSHRO[employer] SPAWN MAKER (Physician/MUSHROOM SPAWN [employer]KER ) ) ) Arrival Mode Ambulatory Ambulatory Ambulatory Transfer Assistance None None Accompanied by Patient Identification Verified (Name & Yes Yes Yes ) Patient Requires Transmission-Based No No Precautions Finger Stick Blood Sugar(mg/dl) (if 140 indicated): Blood Sugar Stated by Patient Height and Weight Body Mass Index (BMI) 29.0 29.0 29.0 BMI Classification Overweight Overweight Overweight Vital Signs Temperature (97.8 F-99.1 F) 96.7 F L 96.3 F L 96.9 F L Temperature Source Temporal Temporal Temporal Pulse Rate (60-100) 79 74 79 Pulse Location Monitor Monitor Monitor Respiratory Rate (12-18) 18 18 18 Respiratory rate source Observation Observation Observation Oxygen Delivery Method Room Air Blood Pressure (90/60-120/80) 141/63 H 157/72 H 124/59 H Blood Pressure Mean (mm Hg) 89 100 80 Source Monitor Monitor Monitor Position Semi-Fowlers Sitting Semi-Fowlers Blood Pressure Location Left Arm Left Arm Left Arm History Since Last Visit- (Skip if this is Patient's initial visit) Have you changed medications since your No No No last visit? Any new allergies or adverse reactions No No No Had a fall/change in ADL's that may No No No increase risk of falls Signs or symptoms of abuse and/or No No No neglect since last visit Have you been in the hospital since your No No No last visit? Has dressing in place as prescribed Yes Yes Yes Has compression in place as prescribed Yes Yes Yes Has offloadiing in place as prescribed No Yes No Experienced any changes in pain level or No No No management Left Footwear Regular Shoe Right Footwear Surgical Shoe with pressure relief insole Pain Scale: 0-10 Numeric Is Patient Pain Free? Yes Yes Yes WC - Nurse 1 - General Ulcer Measurement Start: 09/06/23 09:59 Freq: Status: Active Protocol: Activity Type Activity Date Activity User E-sign Co-sign Detail Recorded Client Recorded Date Recorded By Document 09/06/23 10:00 RB wound center 09/06/23 10:05 RB Document 09/13/23 10:02 KW wound center 09/13/23 10:16 KW Document 09/27/23 10:16 RB wound 09/27/23 10:28 RB Edit Result 09/27/23 10:16 RB (1) wound 09/27/23 10:28 RB (1) 5. R 5th toe/ lateral foot - Necrotic Tissue Type Adherent Slough => Eschar 09/06/23 09/13/23 09/27/23 10:00 10:02 10:16 Wound Center Nurse 1 5. R 5th toe/ lateral foot -Combined with other wound No No -Current Size (cm) - Length 4.5 5.2 5.5 -Current Size (cm) - Width 1.5 3.4 2.3 -Current Size (cm) - Depth 0.1 0.2 0.1 -Total Square Cm 6.75 17.68 12.65 -Tunneling No No -Undermining/Tunneling No No -Circular Undermining No No -Exudate Amt Medium Small Medium -Exudate Type Serosanguineous Serosanguineous Serosanguineous -Wound Margin Distinct, Distinct, Distinct, Outline Outline Outline Attached Attached Attached -Granulation Amt Small (1-33%) Small (1-33%) Medium (34-66%) -Granulation Quality [place] -Slough/Fibrin Yes Yes -Necrosis Amt Large (67-100%) Large (67-100%) Medium (34-66%) -Necrotic Tissue Type Eschar Eschar Eschar -Structure Exposed N/A N/A -Texture (Shikha-wound Skin Appearance) Assessed Assessed, Assessed Localized Edema -Moisture (Shikha-wound Skin Appearance) Assessed Assessed Assessed,Dry/ Scaly -Color (Shikha-wound Skin Appearance) Erythema Assessed, Assessed Erythema -Temperature (Shikha-wound Skin No Abnormality No Abnormality No Abnormality Appearance) (Pt Warm) (Pt Warm) (Pt Warm) -Tenderness on Palpation (Shikha-wound No No Skin Appearance) -Ulcer Cleansing Wound Cleanser Soap and Water Wound Cleanser -Foul Odor after Cleansing No No No -Anesthetic Used 4% Lidocaine 5% Lidocaine 4% Lidocaine Solution Gel Solution 4. R 4th toe -Combined with other wound No No -Current Size (cm) - Length 3 0.1 3 -Current Size (cm) - Width 1 0.1 1 -Current Size (cm) - Depth 0.2 0.1 0.1 -Total Square Cm 3 0.01 3 -Tunneling No No -Undermining/Tunneling No No -Circular Undermining No No -Exudate Amt Medium Medium -Exudate Type Serosanguineous Serosanguineous -Wound Margin Distinct, Indistinct, Non Distinct, Outline -Visible Outline Attached Attached -Granulation Amt Small (1-33%) Small (1-33%) Medium (34-66%) -Granulation Quality [place] -Slough/Fibrin Yes Yes -Necrosis Amt Medium (34-66%) Large (67-100%) Medium (34-66%) -Necrotic Tissue Type Adherent Slough Adherent Slough Adherent Slough -Structure Exposed N/A N/A -Texture (Shikha-wound Skin Appearance) Assessed Assessed Assessed -Moisture (Shikha-wound Skin Appearance) Assessed, Assessed Assessed,Dry/ Weeping Scaly -Color (Shikha-wound Skin Appearance) Assessed, Assessed Assessed Erythema -Temperature (Shikha-wound Skin No Abnormality No Abnormality No Abnormality Appearance) (Pt Warm) (Pt Warm) (Pt Warm) -Tenderness on Palpation (Shikha-wound No No No Skin Appearance) -Ulcer Cleansing Wound Cleanser Soap and Water Wound Cleanser -Foul Odor after Cleansing No No No -Anesthetic Used 4% Lidocaine 5% Lidocaine 4% Lidocaine Solution Gel Solution -Wound Comment(s) wound difficult to measure 3. R 3rd toe -Combined with other wound No No -Current Size (cm) - Length 0.8 0.4 0.7 -Current Size (cm) - Width 0.5 0.3 0.6 -Current Size (cm) - Depth 0.2 0.1 0.1 -Total Square Cm 0.40 0.12 0.42 -Tunneling No No -Undermining/Tunneling No No -Circular Undermining No No -Exudate Amt Medium Small Medium -Exudate Type Serosanguineous Serosanguineous Serosanguineous -Wound Margin Distinct, Distinct, Distinct, Outline Outline Outline Attached Attached Attached -Granulation Amt Small (1-33%) Medium (34-66%) -Granulation Quality [place] -Slough/Fibrin Yes Yes -Necrosis Amt Medium (34-66%) Large (67-100%) Medium (34-66%) -Necrotic Tissue Type Adherent Slough Adherent Slough Adherent Slough -Structure Exposed N/A N/A -Texture (Shikha-wound Skin Appearance) Assessed Assessed, Assessed Localized Edema -Moisture (Shikha-wound Skin Appearance) Weeping Assessed Assessed,Dry/ Scaly -Color (Shikha-wound Skin Appearance) Assessed, Assessed, Assessed Erythema Erythema -Temperature (Shikha-wound Skin No Abnormality No Abnormality Appearance) (Pt Warm) (Pt Warm) -Tenderness on Palpation (Shikha-wound No No Skin Appearance) -Ulcer Cleansing Wound Cleanser Soap and Water Wound Cleanser -Foul Odor after Cleansing No No No -Anesthetic Used 4% Lidocaine 5% Lidocaine 4% Lidocaine Solution Gel Solution 2. R heel -Combined with other wound No No -Current Size (cm) - Length 2.5 2 0.1 -Current Size (cm) - Width 3.6 2.2 0.1 -Current Size (cm) - Depth 0.1 0.1 0.1 -Total Square Cm 9.00 4.4 0.01 -Epithelialization Medium 34-66% -Tunneling No No -Undermining/Tunneling No No -Circular Undermining No No -Exudate Amt Medium Small Medium -Exudate Type Serosanguineous Serosanguineous Serosanguineous -Wound Margin Distinct, Distinct, Distinct, Outline Outline Outline Attached Attached Attached -Granulation Amt Medium (34-66%) Medium (34-66%) -Granulation Quality [place] -Slough/Fibrin Yes Yes -Necrosis Amt Medium (34-66%) Large (67-100%) Medium (34-66%) -Necrotic Tissue Type Adherent Slough Adherent Slough Adherent Slough -Structure Exposed N/A N/A -Texture (Shikha-wound Skin Appearance) Assessed Assessed Assessed -Moisture (Shikha-wound Skin Appearance) Assessed Assessed,Dry/ Assessed Scaly -Color (Shikha-wound Skin Appearance) Assessed Assessed, Assessed Erythema -Temperature (Shikha-wound Skin No Abnormality No Abnormality No Abnormality Appearance) (Pt Warm) (Pt Warm) (Pt Warm) -Tenderness on Palpation (Shikha-wound No No No Skin Appearance) -Ulcer Cleansing Wound Cleanser Soap and Water Wound Cleanser -Foul Odor after Cleansing No No -Anesthetic Used 4% Lidocaine 5% Lidocaine 4% Lidocaine Solution Gel Solution 1. R foot medial -Combined with other wound No No -Current Size (cm) - Length 0.6 1 0.4 -Current Size (cm) - Width 2 2 1.8 -Current Size (cm) - Depth 0.1 0.1 0.2 -Total Square Cm 1.2 2 0.72 -Tunneling No No -Undermining/Tunneling No No -Circular Undermining No No -Exudate Amt Medium Small Medium -Exudate Type Serosanguineous Serosanguineous Serosanguineous -Wound Margin Distinct, Distinct, Distinct, Outline Outline Outline Attached Attached Attached -Granulation Amt Medium (34-66%) Medium (34-66%) -Granulation Quality [place] -Slough/Fibrin Yes Yes -Necrosis Amt Medium (34-66%) Large (67-100%) Medium (34-66%) -Necrotic Tissue Type Eschar Eschar Adherent Slough -Structure Exposed N/A N/A -Texture (Shikha-wound Skin Appearance) Assessed Assessed, Assessed Localized Edema -Moisture (Shikha-wound Skin Appearance) Assessed Assessed Dry/Scaly -Color (Shikha-wound Skin Appearance) Assessed Assessed, Assessed Erythema -Temperature (Shikha-wound Skin No Abnormality No Abnormality No Abnormality Appearance) (Pt Warm) (Pt Warm) (Pt Warm) -Tenderness on Palpation (Shikha-wound No No No Skin Appearance) -Ulcer Cleansing Wound Cleanser Soap and Water Wound Cleanser -Foul Odor after Cleansing No No No -Anesthetic Used 4% Lidocaine 5% Lidocaine 4% Lidocaine Solution Gel Solution Lower Limb Edema Present Yes Right Calf (cm) 35 33 Right Ankle (cm) 20 23.5 WC - Nurse 2 - General Ulcer CM Notes Start: 09/06/23 09:59 Freq: Status: Active Protocol: Activity Type Activity Date Activity User E-sign Co-sign Detail Recorded Client Recorded Date Recorded By Document 09/06/23 10:16 [id number] 09/06/23 10:18 Document 09/13/23 10:29 [id number] 09/13/23 10:33 Document 09/27/23 10:48 0000 09/27/23 10:50 09/06/23 09/13/23 09/27/23 10:16 10:29 10:48 Wound Center Nurse 2 5. R 5th toe/ lateral foot -Correct Patient No No No -Correct Side, Site, Position No No No -Correct Procedure No No No -Procedure Performed No No No -Wound/Ulcer Outcome Not Healed Not Healed Not Healed -Debridement - Subq, 1st 20sq cm No 4. R 4th toe -Correct Patient No No No -Correct Side, Site, Position No No No -Correct Procedure No No No -Procedure Performed No No No -Wound/Ulcer Outcome Not Healed Not Healed Not Healed 3. R 3rd toe -Correct Patient No No No -Correct Side, Site, Position No No No -Correct Procedure No No No -Procedure Performed No No No -Wound/Ulcer Outcome Not Healed Not Healed Not Healed 2. R heel -Correct Patient No No No -Correct Side, Site, Position No No No -Correct Procedure No No No -Procedure Performed No No No -Wound/Ulcer Outcome Not Healed Not Healed Not Healed 1. R foot medial -Correct Patient No No No -Correct Side, Site, Position No No No -Correct Procedure No No No -Procedure Performed No No No -Wound/Ulcer Outcome Not Healed Not Healed Not Healed Pain Scale: 0-10 Numeric Is Patient Pain Free? Yes Yes Yes WC - Nurse 3 - General Ulcer D/C NN Start: 09/06/23 09:59 Freq: Status: Active Protocol: Activity Type Activity Date Activity User E-sign Co-sign Detail Recorded Client Recorded Date Recorded By Document 09/06/23 10:23 KW wound center 09/06/23 10:25 KW Document 09/13/23 10:55 RB wound 09/13/23 10:57 RB 09/06/23 09/13/23 10:23 10:55 Wound Care Center Nurse 3 5. R 5th toe/ lateral foot -Ulcer Cleansing betadine -Other Dressing BETADINE GAUZE betadine gauze -Primary Dressing Covered/Secured with Dry Gauze & Dry Gauze & Roll Gauze Roll Gauze, Secured with Tape 4. R 4th toe -Ulcer Cleansing betadinr -Other Dressing BETADINE GAUZE -Primary Dressing Covered/Secured with Dry Gauze & Dry Gauze, Roll Gauze, Secured with Secured with Tape Tape 3. R 3rd toe -Ulcer Cleansing betadine -Other Dressing BETADINE GAUZE -Primary Dressing Covered/Secured with Dry Gauze & Dry Gauze & Roll Gauze, Roll Gauze, Secured with Secured with Tape Tape 2. R heel -Ulcer Cleansing betadine -Other Dressing BETADINE GAUZE -Primary Dressing Covered/Secured with Dry Gauze & Roll Gauze, Secured with Tape 1. R foot medial -Ulcer Cleansing betadine -Other Dressing BETADINE GAUZE -Primary Dressing Covered/Secured with Dry Gauze & Dry Gauze & Roll Gauze, Roll Gauze, Secured with Secured with Tape Tape Right -Tubular Bandage Single Layer Single Layer -Size of Tubigrip Used Size D Size D -Size D ($) 1 1 Treatment Response Procedure Tolerated Well Pain Scale: 0-10 Numeric Is Patient Pain Free? Yes Yes WC - Visit Discharge Discharge Condition Stable Stable Ambulatory Status Ambulatory Ambulatory Transportation Private Auto Private Auto Medication Reconcilliation completed & No No provided to patient/care provider Clinical Summary of Care Provided Yes Yes Assessment/Plan Assessment/Plan (1) Cellulitis of right lower limb: CODE(S): L03.115 - Cellulitis of right lower limb PLAN: Exam performed. No acute infection at current pending vascular evaluation, planning for right partial 5th and 4th ray amputation on right along with wound debridement and graft application - patient refusing today Radiographs negative for osteomyelitis. Arterial and venous studies -arterial studies demonstrate diminished TBI's bilaterally. Will refer to vascular surgery for further workup. 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 Recommend discontinuation of daily foot soaks. Today patient was dressed with Betadine gauze dry sterile dressing and Tubigrip. Patient will perform these dressings on a daily basis per self-care. Patient will maintain protected weightbearing in a surgical shoe with minimal weight to right foot assisted by a walker. Ultimately I am recommending nonweightbearing and minimal ambulation. Patient follow-up in 2 weeks (2) Non-pressure chronic ulcer of other part of right foot with necrosis of bone: CODE(S): L97.514 - Non-pressure chronic ulcer of other part of right foot with necrosis of bone (3) Non-pressure chronic ulcer of other part of right foot with fat layer exposed: CODE(S): L97.512 - Non-pressure chronic ulcer of other part of right foot with fat layer exposed (4) Type 2 diabetes mellitus with diabetic polyneuropathy: CODE(S): E11.42 - Type 2 diabetes mellitus with diabetic polyneuropathy (5) Other specified peripheral vascular diseases: CODE(S): I73.89 - Other specified peripheral vascular diseases
--- NOTE | 2023-09-27 15:31 | WC ---
Saw patient today in wound clinic for follow-up. Patient was referred to Dr Joseph to address his vascular status for pending 5th toe amputation from Dr Green due to gangrene digit. Patient states he was going to wait until today's visit before he decided to call Dr Joseph's office back since he felt the wound was feeling better. Dr Green stated he did not feel the wounds were looking better and still wanted him to call for an appt with vascular. Patient added that he has been walking on it without his postop shoe and exercising and thinks it feels better. Patient does not believe he needs an amputation and the discussion between Dr Green and patient was reinforced the concern that the dry gangrene can continue to worsen and affect more of his foot and toes. I offered to give them Dr Joseph's number and handed the my business card after she said she would call today so she could let me know when it was scheduled. Patient left today with his without getting his wounds covered with betadine and gauze. Nurse 3 went to approach his exam room but the patient walked out and left the building telling Cris they were not rescheduling. Dr Green was made aware of this an no new instructions provided. After clinic today, I called patient's contact number and received their voicemail. Left a message letting him know I knew he left unhappy and offered to talk to him to discuss options like having him see a different provider for another opinion. I left my contact info and encouraged them to call me back.
== END 2023-10-02 23:59 | disposition home or self-care (01) ==
LOC: WC 10:15
PROVIDERS: PCP Family Medicine; Referring Provider Family Medicine; Visit Provider Podiatrist
DX: E11.621 Type 2 diabetes mellitus with foot ulcer (principal); L97.514 Non-pressure chronic ulcer of other part of right foot with necrosis of bone; E11.42 Type 2 diabetes mellitus with diabetic polyneuropathy; E11.51 Type 2 diabetes mellitus with diabetic peripheral angiopathy without gangrene; L03.115 Cellulitis of right lower limb
CPT/HCPCS: 93923; 93970; 99214; G0463

== ENCOUNTER → 2023-11-18 | Outpatient (CLI) | payer MEDICARE, OTHER, SELFPAY ==
--- NOTE | 2023-11-18 12:13 | RAD_ITS ---
STUDY: X-RAY - RIGHT FOOT CLINICAL: Male, 73 years old. Wounds on fourth and fifth digits and heel. TECHNIQUE: 3 view(s) of the foot. COMPARISON: None. FINDINGS: Osteopenia. Moderate to marked arthrosis of the tibiotalar and subtalar joints. Inferior and superior calcaneal spurs. Moderate arthrosis of the midfoot. Moderate arthrosis of the MTP and IP joints. Diffuse soft tissue swelling over the fourth and fifth digits with bone destruction of the distal fifth metatarsal and a significant portion of the proximal phalanx of the fifth toe with fractures of the distal fifth metatarsal and proximal phalanx. Bony erosion of the distal phalanx. Hammertoe deformities. Diffuse soft tissue swelling. RAD/Foot min 3 Views IMPRESSION: Osteopenia with moderate to marked osteoarthritic changes. Findings of osteomyelitis of the fifth metatarsal and the proximal and distal phalanges of the fifth digit. Diffuse marked soft tissue swelling. Electronically Signed: Enrique Major MD at 15:56 EDT ,
--- NOTE | 2023-11-18 12:13 | RAD_ITS ---
STUDY: X-RAY - RIGHT CALCANEUS REASON FOR EXAM: Male, 73 years old. Heel wound. TECHNIQUE: 2 view(s) of the calcaneus were obtained. COMPARISON: None. FINDINGS: Osteopenia. Clips in the distal medial malleolus. Moderate to marked arthrosis of the tibiotalar joint and subtalar joint. Large superior and inferior calcaneal spurs. Diffuse soft tissue swelling. Vascular calcification. RAD/Calcaneus min 2 Views IMPRESSION: Osteopenia with osteoarthritic changes and calcaneal spurs. No bone erosion identified. Electronically Signed: Enrique Major MD at 15:49 EDT ,
[2023-11-18 12:26] LABS: Absolute Lymphocyte Count 1.38 X10^3/uL (0.83-4.51); Absolute Neutrophil Count 8.2 X10^3/uL (2.0-7.7); Basophil# 0.04 X10^3/uL; Basophil% 0.4 % (0-1); Eosinophil# 0.32 X10^3/uL; Eosinophils% 2.9 % (0-5); Hematocrit 31.6 % (40-54); Hemoglobin 9.8 g/dL (13.0-16.5); Lymphocyte # 1.38 X10^3/ul (0.83-4.51); Lymphocyte % 12.6 % (19-41); Mean Corpuscular Hgb 27.7 pg (27.0-32.0); Mean Corpuscular Volume 89.3 fL (80-94); Mean Platelet Vol. 9.2 fl (6.2-12.0); Monocyte# 0.94 X10^3/uL; Monocyte% 8.6 % (0-10); NRBC Flagged by Analyzer 0 % (0-5); Neutrophil # 8.23 X10^3/uL (2.7-7.7); Neutrophil % 74.8 % (47-70); Platelet Count 322 K/mm3 (150-450); RBC Distribution Width CV 13.7 % (11.6-14.6); RBC Distribution Width SD 44.7 fl (35.1-43.9); Red Blood Count 3.54 M/mm3 (4.6-6.2)
== END | disposition home or self-care (01) ==
PROVIDERS: PCP Family Medicine; Referring Provider Physician Assistant; Visit Provider Physician Assistant
DX: L97.514 Non-pressure chronic ulcer of other part of right foot with necrosis of bone (principal); L97.512 Non-pressure chronic ulcer of other part of right foot with fat layer exposed; E11.42 Type 2 diabetes mellitus with diabetic polyneuropathy
CPT/HCPCS: 36415; 73630; 73650; 85025

== ENCOUNTER 2023-11-21 08:19 | Inpatient (IN) | payer MEDICARE, SELFPAY ==
[2023-11-21] VITALS (8 sets, daily range): BP systolic 112–149; BP diastolic 57–68; PULSE 53–77; RESP 14–18; TEMP 36.1–36.8; O2SAT 95–100; BMI 29.3
--- NOTE | 2023-11-21 08:53 | ED.VIS.LOWEX ---
HPI History of Present Illness Chief Complaint: Wound Informant: patient and spouse/S.O. Narrative Narrative: Presents for worsening right foot infection. Diabetes. 3 months ago walking an abrasion to his foot. He was sent to wound care the end of August, had recommended amputation however declined. He is continued wound care. Very hard of hearing poor historian. States he was referred eventually to vascular surgery. He saw them this past Tuesday, image studies with concern for bone infection. Currently on Augmentin and Bactrim. He has neuropathy therefore no pain. Denies fevers or chills. Denies history of similar. Prior similar symptoms: No [facility] Medical History Diabetes Home Medications ?Medication ?Instructions ?Recorded ?Last Taken ?Type apixaban 5 mg tablet (Eliquis) 5 mg PO BID 08/30/23 Unknown History atorvastatin 10 mg tablet 80 mg PO QHS cholesterol 08/30/23 Unknown History calcitriol 0.25 mcg capsule PO 08/30/23 Unknown History clonidine HCl 0.2 mg tablet 0.2 mg PO BID 08/30/23 Unknown History dapagliflozin propanediol 10 mg 10 mg PO DAILY 08/30/23 Unknown History tablet dulaglutide 0.75 mg/0.5 mL 0.75 mg subcut QWEEK 08/30/23 Unknown History subcutaneous pen injector (Trulicity) ergocalciferol (vitamin D2) 1,250 1,250 mcg PO QWEEK 08/30/23 Unknown History mcg (50,000 unit) capsule gabapentin 300 mg capsule 300 mg PO BID 08/30/23 Unknown History insulin glargine 100 unit/mL (3 40 unit subcut QHS 08/30/23 Unknown History mL) subcutaneous pen (Lantus Solostar U-100 Insulin) insulin glargine-yfgn 100 unit/mL 22 unit subcut 08/30/23 Unknown History (3 mL) subcutaneous pen (Semglee (insulin glargine-yfgn) Pen) insulin lispro 100 unit/mL 20 unit subcut .with meals 08/30/23 Unknown History subcutaneous solution losartan 25 mg tablet 25 mg PO DAILY 08/30/23 Unknown History metoprolol succinate 25 mg 75 mg PO DAILY 08/30/23 Unknown History tablet,extended release 24 hr mupirocin 2 % topical ointment 1 applic topical TID 08/30/23 Unknown History pen needle, diabetic 31 gauge x 08/30/23 Unknown History 06/17 (BD Ultra-Fine Mini Pen Needle) amoxicillin 875 mg-potassium 1 tab PO BID 7 days #14 tabs 11/18/23 Unknown Rx clavulanate 125 mg tablet bumetanide 1 mg tablet 1 mg PO DAILY 11/18/23 Unknown History sulfamethoxazole 800 1 tab PO BID 7 days #14 tabs 11/18/23 Unknown Rx mg-trimethoprim 160 mg tablet Allergy/AdvReac Type Severity Reaction Status Date / Time No Known Allergies Allergy Verified 11/21/23 08:20 Surgical History H/O heart surgery (~2009) Social History Smoking Status: Former smoker ROS ROS ED Constitutional Constitutional ED: Denies chills, fever(s) or sweats Eyes Eyes: Denies change in vision ENT ENT ED: Denies dysphagia or sore throat Cardiovascular Cardiovascular: Denies chest pain, leg edema, palpitations or racing heartbeat Respiratory/Chest Respiratory/Chest: Denies cough, dyspnea or dyspnea on exertion Gastrointestinal Gastrointestinal: Denies abdominal pain, diarrhea, nausea or vomiting Genitourinary Genitourinary ED: Denies dysuria, hematuria or urinary frequency Musculoskeletal Musculoskeletal: Denies back pain, extremity pain or neck pain Integumentary Reports wounds; Denies rash Neurologic Neurologic: Denies headache(s), paresthesias or weakness EXAM Physical Exam Const Vital Signs: 11/21/23 08:21 11/21/23 09:02 11/21/23 10:00 Temperature 98 F 98 F 97.5 F L Temperature Source Temporal Temporal Oral Pulse Rate 54 L 54 L 53 L Respiratory Rate 14 14 16 Blood Pressure 120/57 L 120/57 L 112/57 L Blood Pressure Mean 78 78 75 Pulse Ox 100 100 97 Oxygen Delivery Method Room Air Room Air Room Air Positive well nourished and well developed General Appearance ED: well developed and NAD HEENT Reports moist mucous membranes normocephalic and atraumatic Eyes EOMs intact bilaterally and conjunctivae normal General Eye ED: Yes normal appearance of both eyes Neck no lymphadenopathy and supple General: Negative for tenderness Chest Wall Chest: Negative for tenderness Resp normal respiratory effort and normal air movement Effort and Inspection: symmetric chest movement; Negative for respiratory distress Cardio regular rate, regular rhythm and no murmurs Peripheral Pulses: pulses 2+ throughout GI normal to inspection, nondistended, normoactive bowel sounds and non-tender Palpation: Negative for guarding or rebound tenderness present Back/Spine no CVA tenderness and no thoracic nor lumbar tenderness Extremity Extremity Narrative: Right lower extremity: Foot examination and some noted erythema eschar distal fifth metatarsal laterally along with proximal fifth toe. Drainage noted on the dressing. There is erythema along the lateral aspect of the foot. There is eschar on the heel. There is no erythema into the ankle. General Extremety ED: Yes edema General Extremity: edema Neuro oriented x3 and no sensory deficits noted Sensorium / Orientation: awake and alert Skin Skin Narrative: See above MDM MDM MDM Narrative Medical decision making narrative: Interventions / MDM: Differential diagnosis: Osteomyelitis right foot, diabetic neuropathy Diagnosis considered but do not suspect: No clinical sepsis. My EKG interpretation: N/A Imaging independently reviewed and interpreted by myself: N/A External documents reviewed: X-ray right heel and right foot reviewed from 3 days ago had concerning osteomyelitis distal fifth metatarsal and the proximal fifth toe Test considered but not ordered:N/A ED course: Patient with worsening wound diabetic ulcer now erythema of the foot. Sepsis labs were ordered, 1 blood culture performed due to shortages nationwide currently. He is afebrile. Started on Zosyn and vancomycin. Reviewed imagings from Tuesday confirm osteomyelitis. Will plan for admission. Reported last dose of Eliquis was last evening. 0945: White count 9.4 hemoglobin 9.6 stable from previously. Creatinine 2.99 no old for comparison. Potassium 4.7. CRP 23.6 he does have history of CKD. Discussion had reported his PCP recently cut his Eliquis in half. In addition concern for acute component as he is also recently placed on Bactrim. I discussed with podiatry Dr. Coyne, discussed patient's history his recent wound care visits and recommendations from 6 weeks ago. Discussed his lab findings. Will plan to continue to hold Eliquis for preparations of surgical discussion and intervention plans. 1002: I spoke with hospitalist Dr. Jenkins, she has history lab findings and discussion with bank vault custodian. Patient admitted to MedSurg for further inpatient management. Re-evaluation: stable Disposition discussed with patient/family/significant other: Case discussed with consulting clinician: Podiatry, hospitalist This note was generated with [employer] dictation software. It may contain incorrect words, spelling, and punctuation that were not noted in checking the note before signing. Lab Data Attestation: I reviewed the patient's lab results. Labs: Laboratory Results - last 24 hr 11/21/23 08:57 WBC 9.4 RBC 3.45 L Hgb 9.6 L Hct 30.7 L MCV 89.0 MCH 27.8 MCHC 31.3 L RDW Std Deviation 45.5 H RDW Coeff of Marco 14.2 Plt Count 302 MPV 9.2 Immature Gran % (Auto) 0.500 Neut % (Auto) 72.6 H Lymph % (Auto) 14.7 L [place] % (Auto) 8.9 Eos % (Auto) 3.0 Baso % (Auto) 0.3 Absolute Neuts (auto) 6.9 Absolute Lymphs (auto) 1.39 Nucleated RBC % 0 ESR 47 H PT 17.4 H INR 1.4 APTT 38.2 H Sodium 137 Potassium 4.7 Chloride 112 H Carbon Dioxide 21.0 Anion Gap 4 L BUN 40 H Creatinine 2.99 H Estim Creat Clear Calc 22.58 Est GFR (MDRD) Af Amer 27 L Est GFR (MDRD) Non-Af 22 L BUN/Creatinine Ratio 13.4 Glucose 107 H Lactic Acid 0.9 Calcium 8.5 C-React Prot Ext Range 23.60 H Blood Type A POSITIVE Antibody Screen NEGATIVE Discharge Plan Dx/Rx/DC Orders Clinical Impression: Acute osteomyelitis of right foot, Diabetic neuropathy, Chronic anticoagulation, Acute on chronic renal failure, Cellulitis of right foot, Anemia Disposition Disposition: [facility]
[2023-11-21] MEDS: Piperacil/Tazobactam 3.375 GM in 0.9% Normal Saline (50mL MB+) 50 ML IV ×3 (09:20→21:27)
[2023-11-21 09:23] LABS: International Normalized Ratio 1.4; Prothrombin Time (Protime)PT. 17.4 SECONDS (11.7-14.9)
[2023-11-21 09:24] LABS: Partial Thromboplast Time 38.2 Seconds (24.1-36.2)
[2023-11-21 09:27] LABS: Anion Gap 4 (5-15); BUN 40 mg/dL (7-18); BUN/Creat Ratio 13.4 RATIO (10-20); Calcium,Total 8.5 mg/dL (8.5-10.1); Chloride 112 mmol/L (98-107); Creatinine, Serum 2.99 mg/dL (0.70-1.30); EST Glomerular Filtration Rate 22 mL/min (>60); Est Glom Filt Rate - Afr Amer 27 mL/min (>60); Estimated Creatinine Clearance 22.58 ml/min; Glucose 107 mg/dL (74-106); Potassium 4.7 mmol/L (3.5-5.1); Sodium Level 137 mmol/L (136-145)
[2023-11-21 09:29] LABS: Erythrocyte Sedimentation Rate 47 mm/hr (0-20)
[2023-11-21 09:31] LABS: Lactic Acid 0.9 mmol/L (0.4-1.9)
[2023-11-21 09:34] LABS: Absolute Lymphocyte Count 1.39 X10^3/uL (0.83-4.51); Absolute Neutrophil Count 6.9 X10^3/uL (2.0-7.7); Basophil# 0.03 X10^3/uL; Basophil% 0.3 % (0-1); Eosinophil# 0.28 X10^3/uL; Hematocrit 30.7 % (40-54); Hemoglobin 9.6 g/dL (13.0-16.5); Lymphocyte # 1.39 X10^3/ul (0.83-4.51); Lymphocyte % 14.7 % (19-41); Mean Corp Hgb Conc 31.3 g/dL (32-36); Mean Corpuscular Hgb 27.8 pg (27.0-32.0); Mean Platelet Vol. 9.2 fl (6.2-12.0); Monocyte# 0.84 X10^3/uL; Monocyte% 8.9 % (0-10); NRBC Flagged by Analyzer 0 % (0-5); Neutrophil # 6.85 X10^3/uL (2.7-7.7); Neutrophil % 72.6 % (47-70); Platelet Count 302 K/mm3 (150-450); RBC Distribution Width CV 14.2 % (11.6-14.6); RBC Distribution Width SD 45.5 fl (35.1-43.9); Red Blood Count 3.45 M/mm3 (4.6-6.2); White Blood Count 9.4 K/mm3 (4.4-11.0)
--- NOTE | 2023-11-21 09:58 | PCM.HP.STD ---
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 He sustained an abrasion to his right foot three months ago and had been seeing wound care. Apparently amputation was recommended but patient refused. He said he subsequently noted that he had an infection in his foot but discharge so he went see his PCP and was placed on oral antibiotics. He states he took the antibiotics for about 2 weeks and was also referred to vascular surgery. He went see vascular surgery and was seen by the nurse practitioner. Imaging done recently showed right foot infection, concerning for osteomyelitis. He was placed on oral augmentin and bactrim, but his symptoms were not improving so he came in tot ED. Vitals in the ED were BP of 12/57, MS of 54, RR of 14 and temp of 98F. He was saturating at 100% on room air. CBC showed Hb of 9.6, wbc of 9.4 and platelets of 302. ESR was 47. Chemsitry shwoed sodium of 137, potassium of 4.7 and Cr of 2.99. Right foot xray from 11/18/2023 showed marked diffuse soft tissue swelling and osteopenia with moderate to markedm osteoarthritic changes and findings of osteomyelitis of the fifth metatarsal and proximal and distal phalanges of the fifth digit. He is being admitted to be managed for acute osteomyelitis of the fifth metatarsal digit. [facility] Medical History Diabetes Home Medications ?Medication ?Instructions ?Recorded ?Last Taken ?Type apixaban 5 mg tablet (Eliquis) 5 mg PO BID 08/30/23 Unknown History atorvastatin 10 mg tablet 80 mg PO QHS cholesterol 08/30/23 Unknown History calcitriol 0.25 mcg capsule PO 08/30/23 Unknown History clonidine HCl 0.2 mg tablet 0.2 mg PO BID 08/30/23 Unknown History dapagliflozin propanediol 10 mg 10 mg PO DAILY 08/30/23 Unknown History tablet dulaglutide 0.75 mg/0.5 mL 0.75 mg subcut QWEEK 08/30/23 Unknown History subcutaneous pen injector ([facility]) ergocalciferol (vitamin D2) 1,250 1,250 mcg PO QWEEK 08/30/23 Unknown History mcg (50,000 unit) capsule gabapentin 300 mg capsule 300 mg PO BID 08/30/23 Unknown History insulin glargine 100 unit/mL (3 40 unit subcut QHS 08/30/23 Unknown History mL) subcutaneous pen (Lantus Solostar U-100 Insulin) insulin glargine-yfgn 100 unit/mL 22 unit subcut 08/30/23 Unknown History (3 mL) subcutaneous pen (Semglee (insulin glargine-yfgn) Pen) insulin lispro 100 unit/mL 20 unit subcut .with meals 08/30/23 Unknown History subcutaneous solution losartan 25 mg tablet 25 mg PO DAILY 08/30/23 Unknown History metoprolol succinate 25 mg 75 mg PO DAILY 08/30/23 Unknown History tablet,extended release 24 hr mupirocin 2 % topical ointment 1 applic topical TID 08/30/23 Unknown History pen needle, diabetic 31 gauge x 08/30/23 Unknown History 06/17 (BD Ultra-Fine Mini Pen Needle) amoxicillin 875 mg-potassium 1 tab PO BID 7 days #14 tabs 11/18/23 Unknown Rx clavulanate 125 mg tablet bumetanide 1 mg tablet 1 mg PO DAILY 11/18/23 Unknown History sulfamethoxazole 800 1 tab PO BID 7 days #14 tabs 11/18/23 Unknown Rx mg-trimethoprim 160 mg tablet Allergy/AdvReac Type Severity Reaction Status Date / Time No Known Allergies Allergy Verified 11/21/23 08:20 Surgical History H/O heart surgery (~2009) Social History Smoking Status: Former smoker ROS Constitutional Constitutional: Denies anorexia, chills, fatigue, fever(s), malaise or weakness Eyes Eyes: Denies change in vision ENT HEENT: Denies dysphagia, headache(s) or hearing loss Cardiovascular Cardiovascular: Denies chest pain, dyspnea on exertion, edema, lightheadedness, orthopnea, palpitations, paroxysmal nocturnal dyspnea, rapid heart rate or syncope Respiratory/Chest Respiratory/Chest: Denies cough, dyspnea, productive cough, shortness of breath at rest or shortness of breath with exertion Gastrointestinal Gastrointestinal: Denies abdominal pain, constipation, diarrhea, nausea or vomiting Genitourinary Genitourinary: Denies dysuria Musculoskeletal Musculoskeletal: Denies arthralgias or joint pain Neurologic Neurologic: Denies confusion, dizziness, focal weakness, headache(s), numbness or syncope Psychiatric Psychiatric: Denies anxiety Endocrine Endocrinology: Denies change in body appearance Hematologic/Lymphatic Hematologic/Lymphatic: Denies anemia Vital Signs Vital Signs Vital Signs: 11/21/23 08:21 11/21/23 09:02 Temperature 98 F 98 F Temperature Source Temporal Temporal Pulse Rate 54 L 54 L Respiratory Rate 14 14 Blood Pressure 120/57 L 120/57 L Blood Pressure Mean 78 78 Pulse Ox 100 100 Oxygen Delivery Method Room Air Room Air Weight Weight: 187 lb 6.287 oz Body Mass Index (BMI) 29.3 Physical Exam Const alert, oriented x3, no apparent distress and average body habitus General Appearance: cooperative HEENT normocephalic, head/scalp atraumatic, hearing grossly normal bilaterally, moist oral mucous membranes and oropharynx normal Mouth: oral and palatal mucosa normal Eyes PERRL, EOMs intact bilaterally and conjunctivae normal Neck no lymphadenopathy and supple Resp normal respiratory effort, no retractions, no use of accessory muscles and clear to auscultation bilaterally Cardio regular rate, regular rhythm, S1 normal heart sound, S2 normal heart sound and no murmurs GI normal to inspection, nondistended, normoactive bowel sounds, soft to palpation, non-tender and non-distended Extremity normal to inspection Skin Skin Narrative: right little toe has ulceration on the lateral aspect of the right little toe with slough in the floor of the ulcer. Has an ulceration of ~ 1cm x 0.5m over the lateral aspect of the right foot. Differential warmth present, no palpable tenderness due to neuropathy. Neuro oriented x3 and CN's II-XII intact bilaterally Sensorium / Orientation: awake and alert Motor Exam: strength 5/5 throughout Psych affect normal Results Lab / Micro Data 11/21/23 08:57 11/21/23 08:57 Labs: Laboratory Results - last 24 hr 11/21/23 08:57: WBC 9.4, RBC 3.45 L, Hgb 9.6 L, Hct 30.7 L, MCV 89.0, MCH 27.8, MCHC 31.3 L, RDW Std Deviation 45.5 H, RDW Coeff of Marco 14.2, Plt Count 302, MPV 9.2, Immature Gran % (Auto) 0.500, Neut % (Auto) 72.6 H, Lymph % (Auto) 14.7 L, [place] % (Auto) 8.9, Eos % (Auto) 3.0, Baso % (Auto) 0.3, Absolute Neuts (auto) 6.9, Absolute Lymphs (auto) 1.39, Nucleated RBC % 0, ESR 47 H, PT 17.4 H, INR 1.4, APTT 38.2 H, Sodium 137, Potassium 4.7, Chloride 112 H, Carbon Dioxide 21.0, Anion Gap 4 L, BUN 40 H, Creatinine 2.99 H, Estim Creat Clear Calc 22.58, Est GFR (MDRD) Af Amer 27 L, Est GFR (MDRD) Non-Af 22 L, BUN/Creatinine Ratio 13.4, Glucose 107 H, Lactic Acid 0.9, Calcium 8.5, C-React Prot Ext Range 23.60 H, Blood Type A POSITIVE, Antibody Screen NEGATIVE Assessment & Plan Assessment/Plan (1) Cellulitis of right foot: (2) Acute osteomyelitis of right foot: PLAN: Plan #Acute osteomyelitis of the right foot had a right foot wound several months ago was told at the wound clinic will likely need amputation but he refused Has been on oral antibiotics but says has not been working. right foot xray showed evidence of osteomyelitis of hte right fifth metatarsal and proximal and distal phalanges of the fifth digit as well s diffuse marked soft tissue swelling admit to med surg get blood cultures. Defer to podiatry about MRI consult podiatry. PT/OT on board. start on IV vancomycin and zosyn. fall precautions #Type 2 diabetes mellitus with neuropathy On dapagliflozin and dulaglutide. Also on Lantus. Insulin sliding scale. Accu-Cheks ACHS. #SABRINA: Cr is 2.99. Baseline Cr is unknown. Will hydrate gently with iVF and trend Cr. #Afib: on eliquis. Hold eliquis for now for probable surgery. #Hyperlipidemia: on statin #Hypertension; on losartan and metoprolol. IV hydralazine prn. #?heart failure Patient on Bumex. It is unclear why he is on Bumex. Will get 2D echo to assess EF. DVT prophylaxis: lovenox. Hold eliquis for now due to patient likely needing surgery. Code status: full code Patient counseled extensively about different types of CODE STATUS including full code, DNR CCA and DNR CCA. Patient elects to be full code. Total chox-nd-ypfg time 17 minutes. Charges/Coding Visit Charges Inpatient E&M: 85062 Init Hosp L3 Procedures Hospitalists Procedures: 07140 Advncd Care Plan 30 Min
[2023-11-21] MEDS: 0.9% Normal Saline (1000mL) 1,000 ML 100 ML IV (10:15)
[2023-11-21] MEDS: Vancomycin HCl 2,000 MG in 0.9% Normal Saline (500mL Bag) 500 ML 250 MG IV (10:16)
[2023-11-21 10:39] LABS: Hemoglobin A1c 6.5 % (3.8-5.6)
--- NOTE | 2023-11-21 11:42 | PCM.RX.CS ---
Consult Antibiotic Management Pharmacy has been consulted to manage selected antibiotic: Vancomycin Type of Intervention Type of Consult: New start Suspected Infection Suspected Infection: Skin/Soft tissue and Osteomyelitis Prior Doses of Antibiotics Prior Doses of Antibiotics Received/Current Regimen: Received loading dose of 2000mg iv x 1 in ER today @1016. Labs Labs: Sodium 137 mmol/L (136-145) 11/21/23 08:57 Potassium 4.7 mmol/L (3.5-5.1) 11/21/23 08:57 Chloride 112 mmol/L (98-107) H 11/21/23 08:57 Carbon Dioxide 21.0 mmol/L (21.0-32.0) 11/21/23 08:57 Anion Gap 4 (5-15) L 11/21/23 08:57 BUN 40 mg/dL (7-18) H 11/21/23 08:57 Creatinine 2.99 mg/dL (0.70-1.30) H 11/21/23 08:57 Est GFR (MDRD) Af Amer 27 mL/min (>60) L 11/21/23 08:57 Est GFR (MDRD) Non-Af 22 mL/min (>60) L 11/21/23 08:57 BUN/Creatinine Ratio 13.4 RATIO (10-20) 11/21/23 08:57 Glucose 107 mg/dL (74-106) H 11/21/23 08:57 Dosing Weight Weight used for dosin kg Estimated Creatinine Clearance Estimated Creatinine Clearance: 23ml/min Goal Trough Goal Trough: 15-20 mcg/mL Pharmacy Plan for Drug Dosing Pharmacy Plan for Drug Dosing: Recommend a starting dose of 750mg iv daily with trough before third total dose on 11.23.23. Pharmacy Service will continue to monitor and adjust dosing as required. Follow-Up Labs Follow-Up Labs: Trough: Vancomycin (11.23.23 @0930)
[2023-11-21] MEDS: Heparin Injection (Vial) 5,000 UNIT/ML VIAL 5000 UNIT SC ×2 (14:33→21:27)
[2023-11-21 14:43] LABS: M R Staph aureus DNA By PCR Negative (Negative); Probe Check PASS; Specimen Processing Control PASS; Staph aureus DNA By PCR NEGATIVE (Negative)
--- NOTE | 2023-11-21 15:12 | WOUNDNOTE ---
wound photo: right foot
--- NOTE | 2023-11-21 15:13 | WOUNDNOTE ---
wound photo: right heel
[2023-11-21 18:00] LABS: Bedside Glucose 111 mg/dL (74-106)
--- NOTE | 2023-11-21 18:36 | CON.PCM_ITS ---
Assessment & Plan Assessment/Plan (1) Cellulitis of right foot: (2) Acute osteomyelitis of right foot: (3) Type 2 diabetes mellitus with diabetic polyneuropathy: (4) Non-pressure chronic ulcer of other part of right foot with necrosis of bone: (5) Non-pressure chronic ulcer of other part of right foot with fat layer exposed: (6) Peripheral vascular disease: (7) Type 2 diabetes mellitus with foot ulcer: PLAN: Plan Patient seen and evaluated Right foot: There is eschar noted to the lateral aspect of the fifth digit with erythema about the fifth digit extending proximally to the midfoot. There is also an ulceration lateral aspect of the fifth metatarsal head with dense fibrous tissue and serosanguineous drainage. Fifth metatarsal head is not palpable secondary to osteomyelitis. No purulent drainage noted, no malodor noted, no palpable fluctuance/bogginess. No lymphangitic streaking. There is also eschar noted to the plantar lateral heel. No signs of infection. I reviewed radiographs from 11/21/2023 demonstrating acute osteomyelitis of the fifth digit and fifth metatarsal head with complete osseous destruction with fragmentation of the fifth metatarsal head. I concur with radiographic read. WBC 9.4; ESR 47; CRP 23.60; lactic acid 0.9 Staph aureus protein A PCR negative; MRSA PCR negative Hemoglobin A1c 6.5% on 11/21/2023 I have reviewed his LEAS from 09/09/2023 demonstrating diminished TBI digits of right foot, normal left. Biphasic DP and PT right with biphasic and triphasic DP and PT of the left. Interpretation as evidence of mild arterial occlusive disease at the digital level of the right foot. Medicine currently following for medical management, they are greatly appreciated Infectious disease consulted for antibiotic management Wound nurse following for assistance with dressing changes Discussed with the patient and family at bedside this afternoon the need to perform a partial fifth ray amputation of the right foot. Discussed the procedure in great detail. Discussed that this is not an elective procedure and that this is a limb salvage procedure to prevent the spread of infection, further more proximal amputation, and loss of life. Patient and family is understanding of this. Patient states I should have done this back in September but I was stubborn, and I am ready to move forward now. Discussed the risks and complications of the procedure with the patient and family in detail. Discussed that the risks include but are not limited to the following: Pain, continued pain, complex regional pain syndrome, phantom pain, infection, dehiscence, delayed healing/nonhealing, need for further surgical intervention, need for more proximal amputation, transfer lesions, bleeding, neuritis/numbness, poor cosmetic result, scarring, edema, difficulty wearing shoe gear, difficulty with ambulation, allergic reaction, addiction to pain medication, loss of function, loss of limb, loss of life. Patient is understanding of these and was able to repeat these back. Patient again understands that this is a limb salvage procedure and is willing to move forward with the surgical intervention. P atient to be consented for partial fifth ray amputation of the right foot, I&D with wide debridement, incision of bone cortex right foot, tissue rearrangement/skin flap right foot, debridement of right heel ulceration with application of advanced wound care product right foot. He will undergo surgical intervention at [facility] on 11/22/2023 at 1 PM. Patient to remain n.p.o. overnight He is also to remain nonweightbearing to the right lower extremity following surgical intervention. Podiatry will continue to follow Jr[facility] [phone] HPI Consult Data Date of Consult: 11/21/23 HPI Narrative Reason for Consultation: Right foot infection with osteomyelitis fifth metatarsal HPI Narrative: BRIDGER FOSTER, is a 73 M who presents to [facility] with PMHx of DM type II with peripheral polyneuropathy and right foot ulceration which has been present for a few months. He states that he sustained an abrasion to the right foot 3 months ago following fifth digit rubbing in shoe gear. Patient had been following in the wound care center with Dr. Green and was informed surgical procedure may need to be done at this time for debridement and possible amputation of the fifth digit due to necrotic eschar lateral fifth digit in September 2023. At that time Dr. Green discussed obtaining vascular studies prior to surgical intervention, however patient refused surgical amputation at that time. He was referred to vascular surgery and did undergo LEAS, however patient did not obtain the studies until November 2023 due to lack of patient follow-up. He reports he did not return to the wound care center for continued care either. He did obtain oral antibiotics from his PCP and did take those for 2 weeks but states infection got worse. He was brought to the ED due to worsening right foot infection by family. Patient states that he does have some pain about the ulcer site and lateral foot. He denies N/V/F/chills. In the ED WBC 9.4, ESR 47, CRP 23.60, lactic acid 0.9, PT 17.4, INR 1.4, APTT 38.2, sodium 137, potassium 4.9. He also underwent radiographs of the right foot demonstrating acute osteomyelitis of the fifth digit and head of the fifth metatarsal. Patient was admitted for continued IV antibiotics and podiatry was consulted for surgical intervention. [facility] Medical History Diabetes Home Medications ?Medication ?Instructions ?Recorded ?Last Taken ?Type apixaban 5 mg tablet (Eliquis) 5 mg PO BID 08/30/23 Unknown History atorvastatin 10 mg tablet 80 mg PO QHS cholesterol 08/30/23 Unknown History calcitriol 0.25 mcg capsule PO 08/30/23 Unknown History clonidine HCl 0.2 mg tablet 0.2 mg PO BID 08/30/23 Unknown History dapagliflozin propanediol 10 mg 10 mg PO DAILY 08/30/23 Unknown History tablet dulaglutide 0.75 mg/0.5 mL 0.75 mg subcut QWEEK 08/30/23 Unknown History subcutaneous pen injector (Trulicity) ergocalciferol (vitamin D2) 1,250 1,250 mcg PO QWEEK 08/30/23 Unknown History mcg (50,000 unit) capsule gabapentin 300 mg capsule 300 mg PO BID 08/30/23 Unknown History insulin glargine 100 unit/mL (3 40 unit subcut QHS 08/30/23 Unknown History mL) subcutaneous pen (Lantus Solostar U-100 Insulin) insulin glargine-yfgn 100 unit/mL 22 unit subcut 08/30/23 Unknown History (3 mL) subcutaneous pen (Semglee (insulin glargine-yfgn) Pen) insulin lispro 100 unit/mL 20 unit subcut .with meals 08/30/23 Unknown History subcutaneous solution losartan 25 mg tablet 25 mg PO DAILY 08/30/23 Unknown History metoprolol succinate 25 mg 75 mg PO DAILY 08/30/23 Unknown History tablet,extended release 24 hr mupirocin 2 % topical ointment 1 applic topical TID 08/30/23 Unknown History pen needle, diabetic 31 gauge x 08/30/23 Unknown History 06/17 (BD Ultra-Fine Mini Pen Needle) amoxicillin 875 mg-potassium 1 tab PO BID 7 days #14 tabs 11/18/23 Unknown Rx clavulanate 125 mg tablet bumetanide 1 mg tablet 1 mg PO DAILY 11/18/23 Unknown History sulfamethoxazole 800 1 tab PO BID 7 days #14 tabs 11/18/23 Unknown Rx mg-trimethoprim 160 mg tablet Allergy/AdvReac Type Severity Reaction Status Date / Time No Known Allergies Allergy Verified 11/21/23 08:20 Surgical History H/O heart surgery (~2009) Social History Smoking Status: Former smoker ROS Constitutional Constitutional: Denies chills, fever(s), headache(s) or malaise Eyes Eyes: Denies diplopia, erythema or loss of vision ENT HEENT: Denies dysphagia, nasal congestion, rhinorrhea or sore throat Cardiovascular Cardiovascular: Denies chest pain, claudication or palpitations Respiratory/Chest Respiratory/Chest: Denies cough, dyspnea or shortness of breath at rest Gastrointestinal Gastrointestinal: Denies anorexia, constipation, diarrhea, nausea or vomiting Genitourinary Genitourinary: Denies dysuria, urinary frequency or urinary urgency Musculoskeletal Musculoskeletal: Denies joint pain, joint stiffness or joint swelling Integumentary Integumentary: Denies jaundice, lesions, pruritus or rash Neurologic Neurologic: Denies dizziness, numbness or seizures Psychiatric Psychiatric: Denies anxiety or depression Endocrine Endocrinology: Denies polydipsia, polyphagia or polyuria Hematologic/Lymphatic Hematologic/Lymphatic: Denies easy bleeding or easy bruising Allergic/Immunologic Allergic/Immunologic: Denies wheezing Physical Exam Const alert, oriented x3 and no apparent distress General Appearance: cooperative HEENT normocephalic Eyes Eyes Narrative: Wears glasses General Eye: normal appearance of both eyes Neck General: normal visual inspection Lymph Lymphatic: no lymphadenopathy noted and no lymphedema noted Resp normal respiratory effort Cardio regular rate and regular rhythm Extremity normal capillary refill and no calf tenderness Extremity Narrative: Right lower extremity: Vascular: DP and PT pulses palpable. CFT is less than 4 seconds to the digits. Normal temperature gradient. Hair growth is absent to the digits. Neurologic: Light touch sensation is diminished. Protective sensation is diminished to foot consistent with diabetic peripheral polyneuropathy. Gross sensation is intact. Musculoskeletal: Muscle strength 5 of 5 age-appropriate. There is pain to palpation about the fifth digit and lateral foot at site of ulceration. No soft tissue crepitus noted. Dermatologic: There is eschar noted to the lateral aspect of the fifth digit with erythema about the fifth digit extending proximally to the midfoot. There is also an ulceration lateral aspect of the fifth metatarsal head with dense fibrous tissue and serosanguineous drainage. Fifth metatarsal head is not palpable secondary to osteomyelitis. No purulent drainage noted, no malodor noted, no palpable fluctuance/bogginess. No lymphangitic streaking. There is also eschar noted to the plantar lateral heel. No signs of infection. Skin no rashes or lesions noted, skin turgor normal and no jaundice Neuro moves all extremities Lab / Micro Data 11/21/23 08:57 11/21/23 08:57 Labs: Laboratory Results - last 24 hr 11/21/23 08:57: WBC 9.4, RBC 3.45 L, Hgb 9.6 L, Hct 30.7 L, MCV 89.0, MCH 27.8, MCHC 31.3 L, RDW Std Deviation 45.5 H, RDW Coeff of Marco 14.2, Plt Count 302, MPV 9.2, Immature Gran % (Auto) 0.500, Neut % (Auto) 72.6 H, Lymph % (Auto) 14.7 L, [place] % (Auto) 8.9, Eos % (Auto) 3.0, Baso % (Auto) 0.3, Absolute Neuts (auto) 6.9, Absolute Lymphs (auto) 1.39, Nucleated RBC % 0, ESR 47 H, PT 17.4 H, INR 1.4, APTT 38.2 H, Sodium 137, Potassium 4.7, Chloride 112 H, Carbon Dioxide 21.0, Anion Gap 4 L, BUN 40 H, Creatinine 2.99 H, Estim Creat Clear Calc 22.58, Est GFR (MDRD) Af Amer 27 L, Est GFR (MDRD) Non-Af 22 L, BUN/Creatinine Ratio 13.4, Glucose 107 H, Hemoglobin A1c 6.5 H, Lactic Acid 0.9, Calcium 8.5, C-React Prot Ext Range 23.60 H, Blood Type A POSITIVE, Antibody Screen NEGATIVE 11/21/23 12:45: S.aureus Protein A PCR NEGATIVE, MRSA (PCR) Negative 11/21/23 15:57: POC Glucose 111 H
[2023-11-21] MEDS: cloNIDine HCl 0.2 MG Tablet PO (21:27)
[2023-11-21] MEDS: Atorvastatin Calcium 80 MG Tablet PO (21:27)
[2023-11-21] MEDS: Gabapentin 300 MG Capsule PO (21:40)
[2023-11-22] VITALS (13 sets, daily range): BP systolic 132–150; BP diastolic 60–103; PULSE 65–80; RESP 12–17; TEMP 36.2–37; O2SAT 93–96
--- NOTE | 2023-11-22 | BON_PTH ---
PATIENT: BRIDGER FOSTER LOC: [facility] U#:[id number] AGE/SX: 73/M ROOM: [facility] RE11/21/[address]: Dr. Rossi Jenkins MD : 1950 BED: 1 DIS: 11/25/2023 SPEC #: [id number] RECD: 11/22/23 16:48 STATUS: ARACELI CALL #: [id number] AGUSTIN: 11/22/23 00:[address]: Vega Coyne DEPT: SURGICAL PATHOLOGY RECD BY: Alejandrina Muse ENTERED: 11/23/23 08:56 SP TYPE: Bone OTHR DR: MD Dr. Rossi Samuel MD Dr. Robert Leininger, MD Tissues: Toe, NOS Procedures: Decalcification bone/plaque Surgery Specimen Level IV HEADER OPERATION: Partial 5th ray amputation with debridement of heel wound PRE-OP DIAGNOSIS: Cellulitis of right foot, acute osteomyelitis of right foot TISSUE SUBMITTED: Right foot- 5th ray MICROSCOPIC DIAGNOSIS 5th ray, right foot, excision: Skin and soft tissue with ulceration and associated acute and chronic inflammation, granulation and fat necrosis. Bone with acute osteomyelitis. / 11/28/2023 MICROSCOPIC DESCRIPTION Slides are reviewed. GROSS DESCRIPTION Received in fixative is one container labeled with the patient's name and designated Right foot 5th ray. The specimen consists of a portion of a toe measuring 3.5 x 3.0 x 2.0cm. Dorsal surface of the toe shows extensive ulceration including the area of the nail. No obvious nail portion is identified. Also present in the container is a detached piece of bone measuring 2.0 x 1.0 x 1.0cm. Psychiatric Aides Teacher sections are submitted in three cassettes as follows: 1- skin with area of ulceration, 2- portion of toe bone is submitted after decalcification, 3- detached piece of bone is submitted after decalcification. Cecile 11/23/2023 TC:2 CPT:91894,60016
[2023-11-22] MEDS: Piperacil/Tazobactam 3.375 GM in 0.9% Normal Saline (50mL MB+) 50 ML IV ×2 (04:58→21:43)
[2023-11-22] MEDS: Potassium Chloride 10 MEQ in Dext 5%-0.45% NS 1,000 ML 75 MEQ IV ×2 (04:58→17:18)
--- NOTE | 2023-11-22 05:55 | EKG12_ITS ---
Test Reason : AM EKG Blood Pressure : / mmHG Vent. Rate : 069 BPM Atrial Rate : 069 BPM P-R Int : 186 ms QRS Dur : 084 ms QT Int : 414 ms P-R-T Axes : 051 -28 005 degrees QTc Int : 443 ms Normal sinus rhythm Septal infarct , age undetermined Abnormal ECG Confirmed by MANA JEAN, DEEPTI ([id number]), business editor RANULFO CRABTREE ([id number]) on 11/25/2023 7:23:44 AM Referred By: Confirmed By:ELIZABETH ADAIR MD
[2023-11-22 06:36] LABS: Absolute Lymphocyte Count 1.12 X10^3/uL (0.83-4.51); Absolute Neutrophil Count 9.4 X10^3/uL (2.0-7.7); Basophil# 0.03 X10^3/uL; Basophil% 0.3 % (0-1); Eosinophil# 0.31 X10^3/uL; Eosinophils% 2.6 % (0-5); Hematocrit 30.4 % (40-54); Hemoglobin 9.4 g/dL (13.0-16.5); Lymphocyte # 1.12 X10^3/ul (0.83-4.51); Lymphocyte % 9.5 % (19-41); Mean Corp Hgb Conc 30.9 g/dL (32-36); Mean Corpuscular Hgb 27.4 pg (27.0-32.0); Mean Corpuscular Volume 88.6 fL (80-94); Mean Platelet Vol. 9.6 fl (6.2-12.0); Monocyte# 0.78 X10^3/uL; Monocyte% 6.6 % (0-10); NRBC Flagged by Analyzer 0 % (0-5); Neutrophil # 9.43 X10^3/uL (2.7-7.7); Neutrophil % 80.5 % (47-70); Platelet Count 297 K/mm3 (150-450); RBC Distribution Width CV 14.2 % (11.6-14.6); RBC Distribution Width SD 45.4 fl (35.1-43.9); Red Blood Count 3.43 M/mm3 (4.6-6.2); White Blood Count 11.7 K/mm3 (4.4-11.0)
[2023-11-22 06:49] LABS: Anion Gap 7 (5-15); BUN 43 mg/dL (7-18); BUN/Creat Ratio 15.4 RATIO (10-20); Calcium,Total 8.4 mg/dL (8.5-10.1); Chloride 112 mmol/L (98-107); Creatinine, Serum 2.79 mg/dL (0.70-1.30); EST Glomerular Filtration Rate 24 mL/min (>60); Est Glom Filt Rate - Afr Amer 29 mL/min (>60); Estimated Creatinine Clearance 24.46 ml/min; Glucose 83 mg/dL (74-106); Potassium 4.7 mmol/L (3.5-5.1); Sodium Level 139 mmol/L (136-145)
[2023-11-22 06:52] LABS: Bedside Glucose 119 mg/dL (74-106)
[2023-11-22 06:52] LABS: Bedside Glucose 73 mg/dL (74-106)
[2023-11-22] MEDS: Vancomycin HCl 750 MG in 0.9% Normal Saline (250mL Bag) 250 ML 250 MG IV (09:18)
[2023-11-22] MEDS: cloNIDine HCl 0.2 MG Tablet PO ×2 (09:19→21:43)
[2023-11-22] MEDS: Bumetanide 0.5 MG Tablet 1 MG PO (09:19)
[2023-11-22] MEDS: Metoprolol(XL)Succ 25 MG Tablet 75 MG PO (09:20)
[2023-11-22] MEDS: Gabapentin 300 MG Capsule PO ×2 (09:33→21:43)
--- NOTE | 2023-11-22 09:47 | WOUNDNOTE ---
Pt scheduled for surgery later today. will leave dressing in place.
--- NOTE | 2023-11-22 10:53 | PCM.CONS.GEN ---
Assessment & Plan Assessment/Plan (1) Type 2 diabetes mellitus with foot ulcer: (2) Acute osteomyelitis of right foot: PLAN: Wound cx pending. OR planned. Cont vanc/zosyn, will adjust zosyn to q12h due to GFR. Will follow, thank you (3) Peripheral vascular disease: (4) Acute on chronic renal failure: HPI Consult Data Date of Consult: 11/22/23 HPI Narrative Reason for Consultation: osteo HPI Narrative: BRIDGER FOSTER, is a 73 M with DM neuropathy, hurt his R foot about 3 months ago, following with PCP and wound care. Had worsening pain, redness, swelling, started on po bactrim and augmentin, sx cont to worsen. Admitted from ED 11/20. Now on vanc/zosyn, feeling ok, seen by podiatry. No n/v/d, no fever or chills. Full ROS performed and neg except as noted above. [facility] Medical History Diabetes Home Medications ?Medication ?Instructions ?Recorded ?Last Taken ?Type apixaban 5 mg tablet (Eliquis) 5 mg PO BID 08/30/23 Unknown History atorvastatin 10 mg tablet 80 mg PO QHS cholesterol 08/30/23 Unknown History calcitriol 0.25 mcg capsule PO 08/30/23 Unknown History clonidine HCl 0.2 mg tablet 0.2 mg PO BID 08/30/23 Unknown History dapagliflozin propanediol 10 mg 10 mg PO DAILY 08/30/23 Unknown History tablet dulaglutide 0.75 mg/0.5 mL 0.75 mg subcut QWEEK 08/30/23 Unknown History subcutaneous pen injector (Trulicity) ergocalciferol (vitamin D2) 1,250 1,250 mcg PO QWEEK 08/30/23 Unknown History mcg (50,000 unit) capsule gabapentin 300 mg capsule 300 mg PO BID 08/30/23 Unknown History insulin glargine 100 unit/mL (3 40 unit subcut QHS 08/30/23 Unknown History mL) subcutaneous pen (Lantus Solostar U-100 Insulin) insulin glargine-yfgn 100 unit/mL 22 unit subcut 08/30/23 Unknown History (3 mL) subcutaneous pen (Semglee (insulin glargine-yfgn) Pen) insulin lispro 100 unit/mL 20 unit subcut .with meals 08/30/23 Unknown History subcutaneous solution losartan 25 mg tablet 25 mg PO DAILY 08/30/23 Unknown History metoprolol succinate 25 mg 75 mg PO DAILY 08/30/23 Unknown History tablet,extended release 24 hr mupirocin 2 % topical ointment 1 applic topical TID 08/30/23 Unknown History pen needle, diabetic 31 gauge x 08/30/23 Unknown History 06/17 (BD Ultra-Fine Mini Pen Needle) amoxicillin 875 mg-potassium 1 tab PO BID 7 days #14 tabs 11/18/23 Unknown Rx clavulanate 125 mg tablet bumetanide 1 mg tablet 1 mg PO DAILY 11/18/23 Unknown History sulfamethoxazole 800 1 tab PO BID 7 days #14 tabs 11/18/23 Unknown Rx mg-trimethoprim 160 mg tablet Allergy/AdvReac Type Severity Reaction Status Date / Time No Known Allergies Allergy Verified 11/21/23 08:20 Surgical History H/O heart surgery (~2009) Social History Smoking Status: Former smoker Physical Exam Const alert, oriented x3 and no apparent distress General Appearance: cooperative HEENT normocephalic and head/scalp atraumatic Eyes PERRL and EOMs intact bilaterally Neck supple and No nodes Resp normal air movement and clear to auscultation bilaterally Cardio regular rate and regular rhythm GI soft to palpation, non-tender and non-distended Extremity General Extremity: edema Skin Skin Narrative: reviewed photos Neuro CN's II-XII intact bilaterally Lab / Micro Data Attestation: I reviewed the patient's lab results. 11/22/23 04:45 11/22/23 04:45 Labs: Laboratory Results - last 24 hr 11/21/23 12:45: S.aureus Protein A PCR NEGATIVE, MRSA (PCR) Negative 11/21/23 15:57: POC Glucose 111 H 11/22/23 04:01: POC Glucose 73 L 11/22/23 04:45: WBC 11.7 H, RBC 3.43 L, Hgb 9.4 L, Hct 30.4 L, MCV 88.6, MCH 27.4, MCHC 30.9 L, RDW Std Deviation 45.4 H, RDW Coeff of Marco 14.2, Plt Count 297, MPV 9.6, Immature Gran % (Auto) 0.500, Neut % (Auto) 80.5 H, Lymph % (Auto) 9.5 L, [place] % (Auto) 6.6, Eos % (Auto) 2.6, Baso % (Auto) 0.3, Absolute Neuts (auto) 9.4 H, Absolute Lymphs (auto) 1.12, Nucleated RBC % 0, Sodium 139, Potassium 4.7, Chloride 112 H, Carbon Dioxide 20.0 L, Anion Gap 7, BUN 43 H, Creatinine 2.79 H, Estim Creat Clear Calc 24.46, Est GFR (MDRD) Af Amer 29 L, Est GFR (MDRD) Non-Af 24 L, BUN/Creatinine Ratio 15.4, Glucose 83, Calcium 8.4 L 11/22/23 06:26: POC Glucose 119 H Micro: Microbiology 11/21/23 12:45 Wound - Right Foot Wound Culture - Preliminary Gram negative sherley
--- NOTE | 2023-11-22 11:00 | CASEMGMT ---
CAREY MANCINI Assessment: Face to Face with pt for initial transition planning/care coordination assessment. CAREY MANCINI introduced self and role at [facility], pt voices understanding and consents to assessment. Pt is A&O x4 and answers all questions appropriately at this time. Pt sitting up in chair in no distress. Pt and NEHA sitting at bedside, pt agreeable to assessment with family present. Care providers, pharmacy, and demographics verified/updated. Admitting Dx: R foot osteomyelitis Strata Score: 2 PCP: [place] Specialists: Denies Preferred Pharmacy: [facility] Insurance: [facility] Prescription Benefit: yes LNOK: Living Arrangements: Pt lives with in a condo with zero stairs to enter. Pt reports I at home. Transportation: Pt drives self and denies concerns with transportation. DME: Walker, cane, comfort Ht commode, bathroom seat. HHC/SNF: Denies Hx of. Pt preparing for procedure, discussed RN CM to pt care to determine if he has any needs at time of DC. Pt states no further concerns/needs. CM to follow. Advised pt to ask CM if any further question/concerns/needs arise, voices understanding. Pt Goal: TBD Plan: TBD, follow for therapy and plan of care. Ebenezer Wilder RN, CM
--- NOTE | 2023-11-22 11:43 | PN_ITS ---
Subjective Subjective Patient seen and examined. He had no complaints. He is due for partial amputation of the right little toe by podiatry today. He has remained hemodynamically stable. Objective Data Objective Data Vital Signs: Vital Signs Temp Pulse Resp BP Pulse Ox O2 Del Method 97.9 F 77 16 145/71 H 94 Room Air 11/22/23 08:37 11/22/23 09:20 11/22/23 08:37 11/22/23 08:37 11/22/23 08:37 11/22/23 08:37 Oxygen Delivery Method Room Air Weight: 191 lb 12.835 oz Body Mass Index (BMI) 30.0 Intake & Output: Intake and Output for Last 24 Hours 11/20/23 11/21/23 11/22/23 23:59 23:59 23:59 Intake Total 1640.00 / 1640.00 365 / 365 Balance 1640.00 / 1640.00 365 / 365 Lab / Micro Data 11/22/23 04:45 11/22/23 04:45 Labs: Laboratory Results - last 24 hr 11/21/23 12:45: S.aureus Protein A PCR NEGATIVE, MRSA (PCR) Negative 11/21/23 15:57: POC Glucose 111 H 11/22/23 04:01: POC Glucose 73 L 11/22/23 04:45: WBC 11.7 H, RBC 3.43 L, Hgb 9.4 L, Hct 30.4 L, MCV 88.6, MCH 27.4, MCHC 30.9 L, RDW Std Deviation 45.4 H, RDW Coeff of Marco 14.2, Plt Count 297, MPV 9.6, Immature Gran % (Auto) 0.500, Neut % (Auto) 80.5 H, Lymph % (Auto) 9.5 L, [place] % (Auto) 6.6, Eos % (Auto) 2.6, Baso % (Auto) 0.3, Absolute Neuts (auto) 9.4 H, Absolute Lymphs (auto) 1.12, Nucleated RBC % 0, Sodium 139, Potassium 4.7, Chloride 112 H, Carbon Dioxide 20.0 L, Anion Gap 7, BUN 43 H, C reatinine 2.79 H, Estim Creat Clear Calc 24.46, Est GFR (MDRD) Af Amer 29 L, Est GFR (MDRD) Non-Af 24 L, BUN/Creatinine Ratio 15.4, Glucose 83, Calcium 8.4 L 11/22/23 06:26: POC Glucose 119 H Micro: Microbiology 11/21/23 12:45 Wound - Right Foot Wound Culture - Preliminary Gram negative sherley Physical Exam Const alert, oriented x3, no apparent distress and average body habitus General Appearance: cooperative HEENT normocephalic, head/scalp atraumatic, hearing grossly normal bilaterally, moist oral mucous membranes and oropharynx normal Eyes PERRL, EOMs intact bilaterally and conjunctivae normal Neck no lymphadenopathy and supple Resp normal respiratory effort, no retractions, no use of accessory muscles and clear to auscultation bilaterally Cardio regular rate, regular rhythm, S1 normal heart sound, S2 normal heart sound and no murmurs GI normal to inspection, nondistended, normoactive bowel sounds, soft to palpation, non-tender and non-distended Extremity normal to inspection Skin Skin Narrative: right foot wrapped in bandage. Neuro oriented x3 and CN's II-XII intact bilaterally Sensorium / Orientation: awake and alert Motor Exam: strength 5/5 throughout and general weakness Psych thought process normal, cooperative and affect normal Appearance: appropriate Assessment & Plan Assessment/Plan (1) Cellulitis of right foot: (2) Acute osteomyelitis of right foot: PLAN: Plan #Acute osteomyelitis of the right foot * had a right foot wound several months ago was told at the wound clinic will likely need amputation but he refused * Has been on oral antibiotics but says has not been working. * right foot xray showed evidence of osteomyelitis of hte right fifth metatarsal and proximal and distal phalanges of the fifth digit as well s diffuse marked soft tissue swelling * On IV vancomycin and Zosyn. * Podiatry on board. For partial ray amputation of the right little toe today. * ID also consulted. * PT/OT on board. * fall precautions * #Type 2 diabetes mellitus with neuropathy * On dapagliflozin and dulaglutide. * Also on Lantus. Insulin sliding scale. Accu-Cheks ACHS. * #SABRINA: Cr is 2.99. Baseline Cr is unknown. Will hydrate gently with iVF and trend Cr. #Afib: on eliquis. Hold eliquis for now for probable surgery. #Hyperlipidemia: on statin #Hypertension; on losartan and metoprolol. IV hydralazine prn. #?heart failure * Patient on Bumex. It is unclear why he is on Bumex. * Will get 2D echo to assess EF. DVT prophylaxis: lovenox. Hold eliquis for now due to patient likely needing surgery. Code status: full code * Charges/Coding Visit Charges Inpatient E&M: 79903 Subs Hosp L2
[2023-11-22 12:27] LABS: Bedside Glucose 105 mg/dL (74-106)
--- NOTE | 2023-11-22 12:46 | PCM.PRE.AN2 ---
ASA Classification* ASA Classification ASA Classification: 3 Assessment & Plan Anesthesia* Anesthesia Assessment Anesthesia Assessment: Discussed sedation and/or anesthesia options, risks, benefits, and alternatives with patient/parents/legal guardian/POA. Questions invited. The patient/parents/legal guardian/POA seems to understand and agrees to proceed with anesthesia plan. Reviewed the physical assessment, medical history, allergy history and patient home medications list prior to surgery/procedure/anesthetic and documented any changes. Performed airway and anesthesia risk assessments. Anesthesia Type Anesthesia Type: General (Will give patient DuoNeb breathing treatment.) History Source History Obtained from:: Patient and Chart Anesthesia Focused Assessment* Temperature: 97.8 F Pulse Rate: 77 Blood Pressure: 150/72 Respiratory Rate: 16 Pulse Ox: 94 Oxygen Delivery Method: Room Air Airway Assessment Mouth opens: >3 cm Mallampati Score: IV Teeth Condition: Missing (Patient has 3 teeth left. They are all tight.) Neck Range of motion (ROM): Full ROM Focused Labs Anesthesia Preop lab: CBC WBC 11.7 K/mm3 (4.4-11.0) H 11/22/23 04:45 RBC 3.43 M/mm3 (4.6-6.2) L 11/22/23 04:45 Hgb 9.4 g/dL (13.0-16.5) L 11/22/23 04:45 Hct 30.4 % (40-54) L 11/22/23 04:45 Plt Count 297 K/mm3 (150-450) 11/22/23 04:45 CHEMISTRY Potassium 4.7 mmol/L (3.5-5.1) 11/22/23 04:45 Sodium 139 mmol/L (136-145) 11/22/23 04:45 BUN 43 mg/dL (7-18) H 11/22/23 04:45 Creatinine 2.79 mg/dL (0.70-1.30) H 11/22/23 04:45 Glucose 83 mg/dL (74-106) 11/22/23 04:45 POC Glucose 105 mg/dL (74-106) 11/22/23 12:09 COAG PT 17.4 SECONDS (11.7-14.9) H 11/21/23 08:57 Pre-Assessment Diagnosis/Proposed Procedure Planned Operative Procedure(s): 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 I&D with wide debridement of the bony cortex of the right foot. Tissue rearrangement and skin flap of the right foot. Debridement of the right heel ulceration with application of advanced wound care product. 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 When Was Last Pacemaker Check QUESTION #4 FULL TEXT: You/Your Family Experience fever (hyperthermia) with Anesthesia Last Oral Intake Last Oral intake: Last Oral Intake NPO since 00:00 11/22/23 05:02 Meds taken in AM with sips of No 11/22/23 05:02 water? Meds patient instructed to take am of surgery PONV PONV - finish repair worker: PONV - finish repair worker Female HX of Motion Sickness HX of N/V After Surgery Non-Smoker Duration of Surgery greater than 60 minutes Number of Risk Factors PONV Score Height & Weight Height & Weight: Anesthesia: Height & Weight Height 5 ft 7 in 11/22/23 05:02 Weight: 87 kg 11/22/23 05:02 Body Mass Index (BMI) 30.0 11/22/23 12:12 Respiratory Assessment Respiratory Assessment - finish repair worker: Respiratory Tract Infection Hx - finish repair worker Hx Respiratory Tract Infection No 11/22/23 05:02 STOP Sleep Apnea STOP Sleep Apnea - finish repair worker: STOP Sleep Apnea - finish repair worker Hx Hypertension No 11/21/23 11:18 Hx Sleep Apnea No 11/21/23 11:18 CPAP BIPAP Do you snore loudly (louder No 11/21/23 11:18 than talking or can be heard Do you often feel tired/ No 11/21/23 11:18 fatigued/ sleepy during daytime? Has anyone observed you stop No 11/21/23 11:18 breathing during sleep? STOP Results Negative 11/21/23 11:18 QUESTION #5 FULL TEXT : Do you snore loudly (louder than talking or can be heard through closed doors)? 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 Specify any problems Hx of Preganancy in last 3 N/A 11/21/23 11:18 Months Nurse Filling Out Transfusion [email or web address] 11/21/23 11:18 & Questions: Date: 11/21/23 11/21/23 11:18 Time: 11:44 11/21/23 11:18 Patient unable to answer at this time (ie. confused, unrespo /Reproduction History /Reproductive History - finish repair worker: /Reproductive Hx- finish repair worker Hx Now No 11/22/23 05:02 Gestational Age (in weeks): EDC: Hx Hx Para Hx Section SAB No 11/22/23 05:02 Active Medications Active Medications: Current Medications Generic Name Dose Route Start Last Admin Trade Name Freq PRN Reason Stop Dose Admin Acetaminophen 650 mg 11/21/23 11:16 Acetaminophen 325 Mg Tablet PO Q6H PRN PRN Pain 1-10 Or Fever >100.7 Atorvastatin Calcium 80 mg 11/21/23 22:00 11/21/23 21:27 Atorvastatin Calcium 80 Mg Tablet PO 80 mg QHS NED Administration Bumetanide 1 mg 11/22/23 10:00 11/22/23 09:19 Bumetanide 0.5 Mg Tablet PO 1 mg DAILY NED Administration Clonidine 0.2 mg 11/21/23 22:00 11/22/23 09:19 Clonidine Hcl 0.2 Mg Tablet PO 0.2 mg BID NED Administration Protocol Empagliflozin 25 mg 11/22/23 10:00 11/22/23 09:19 Empagliflozin 25 Mg Tablet PO Not Given DAILY NED Gabapentin 300 mg 11/21/23 22:00 11/22/23 09:33 Gabapentin 300 Mg Capsule PO 300 mg BID NED Administration Glucagon 1 mg 11/21/23 11:16 Glucagon 1 Mg/Ml Syringe IM X1 PRN HYPOGLYCEMIA Protocol Heparin Sodium (Porcine) 5,000 unit 11/21/23 14:00 11/22/23 01:32 Heparin Injection (Vial) 5,000 Unit/Ml Vial SC Not Given Q8 NED Dextrose 250 mls @ 0 mls/hr 11/21/23 11:16 Dextrose 10%-Water IV .Q0M PRN HYPOGLYCEMIA Protocol As Directed Vancomycin IV-PHARMACY TO DOSE 500 mls @ 250 mls/hr 11/21/23 11:16 1 each/ Sodium Chloride IV PRN PRN Rx to Dose Protocol Vancomycin HCl 750 mg/ Sodium 265 mls @ 250 mls/hr 11/22/23 10:00 11/22/23 11:17 Chloride IV Infused Q24H [facility] Infusion Potassium Chloride 10 meq/ 1,005 mls @ 75 mls/hr 11/22/23 04:20 11/22/23 04:58 Dextrose/Sodium Chloride IV 75 mls/hr .[id number] [facility] Administration Piperacillin Sod/Tazobactam 50 mls @ 12.5 mls/hr 11/22/23 20:00 Sod 3.375 gm/ Sodium Chloride IV Q12H [facility] Lactated Ringer's 1,000 mls @ 15 mls/hr 11/22/23 12:15 IV .Q48H [facility] Insulin Glargine 40 unit 11/21/23 22:00 11/21/23 21:29 Insulin Glargine-Yfgn 100 Unit/Ml Pen SC Not Given QHS NED Insulin Human Lispro 0 unit 11/21/23 11:16 11/22/23 11:18 Insulin Lispro 100 Unit/Ml Insuln.Pen SC Not Given ACHS [facility] Protocol Metoprolol Succinate 75 mg 11/22/23 10:00 11/22/23 09:20 Metoprolol(Xl)Succ 25 Mg Tablet PO 75 mg DAILY NED Administration Protocol Morphine Sulfate 2 - 4 mg 11/21/23 11:16 Morphine 2 Mg/Ml Syringe IV Q3H PRN PRN Pain Score 6-10 Morphine Sulfate 2 - 4 mg 11/21/23 11:25 Morphine 4 Mg/Ml Syringe IV Q3H PRN PRN Pain Score 6-10 Nitroglycerin 0.4 mg 11/21/23 11:16 Nitroglycerin (Inpatient Use) 0.4 Mg Tab.Subl SL Q5M PRN CARDIAC/CHEST PAIN Ondansetron HCl 4 mg 11/21/23 11:16 Ondansetron 4 Mg/2 Ml Vial IV Q8H PRN PRN NAUSEA/VOMITING Oxycodone HCl 5 mg 11/21/23 11:16 Oxycodone 5 Mg Tablet PO Q4H PRN PRN Pain Score 4-10 Sodium Chloride 10 - 40 ml 11/21/23 11:47 0.9% Saline Lock 10 Ml Syringe IV UD PRN SALINE FLUSH Vancomycin Protocol 1 lab 11/23/23 07:30 Vancomycin Trough/Random Due 11/23/23 11:30 DAILY [facility] Medical History Diabetes Home Medications ?Medication ?Instructions ?Recorded ?Last Taken ?Type apixaban 5 mg tablet (Eliquis) 5 mg PO BID 08/30/23 Unknown History atorvastatin 10 mg tablet 80 mg PO QHS cholesterol 08/30/23 Unknown History calcitriol 0.25 mcg capsule PO 08/30/23 Unknown History clonidine HCl 0.2 mg tablet 0.2 mg PO BID 08/30/23 Unknown History dapagliflozin propanediol 10 mg 10 mg PO DAILY 08/30/23 Unknown History tablet dulaglutide 0.75 mg/0.5 mL 0.75 mg subcut QWEEK 08/30/23 Unknown History subcutaneous pen injector (Trulicity) ergocalciferol (vitamin D2) 1,250 1,250 mcg PO QWEEK 08/30/23 Unknown History mcg (50,000 unit) capsule gabapentin 300 mg capsule 300 mg PO BID 08/30/23 Unknown History insulin glargine 100 unit/mL (3 40 unit subcut QHS 08/30/23 Unknown History mL) subcutaneous pen (Lantus Solostar U-100 Insulin) insulin glargine-yfgn 100 unit/mL 22 unit subcut 08/30/23 Unknown History (3 mL) subcutaneous pen (Semglee (insulin glargine-yfgn) Pen) insulin lispro 100 unit/mL 20 unit subcut .with meals 08/30/23 Unknown History subcutaneous solution losartan 25 mg tablet 25 mg PO DAILY 08/30/23 Unknown History metoprolol succinate 25 mg 75 mg PO DAILY 08/30/23 Unknown History tablet,extended release 24 hr mupirocin 2 % topical ointment 1 applic topical TID 08/30/23 Unknown History pen needle, diabetic 31 gauge x 08/30/23 Unknown History 06/17 (BD Ultra-Fine Mini Pen Needle) amoxicillin 875 mg-potassium 1 tab PO BID 7 days #14 tabs 11/18/23 Unknown Rx clavulanate 125 mg tablet bumetanide 1 mg tablet 1 mg PO DAILY 11/18/23 Unknown History sulfamethoxazole 800 1 tab PO BID 7 days #14 tabs 11/18/23 Unknown Rx mg-trimethoprim 160 mg tablet Allergy/AdvReac Type Severity Reaction Status Date / Time No Known Allergies Allergy Verified 11/21/23 08:20 Surgical History (Updated 11/22/23 @ 12:[address] Balaji Alamo MD) Status post incision and drainage H/O heart surgery (~2009) Social History Smoking Status: Former smoker Review of Systems (Anesthesia) ROS Narrative System reviewed and no additional complaints, except as documented.
--- NOTE | 2023-11-22 12:55 | RAD_ITS ---
STUDY: X-RAY - RIGHT FOOT CLINICAL: Male, 73 years old. INFECTION -- R TECHNIQUE: 6 fluoroscopic spot films of the right foot. COMPARISON: Right foot radiographs dated 11/18/2023. FINDINGS: There is new amputation of the fifth digit through the fifth metatarsal shaft. There is adjacent soft tissue gas, compatible with recent/ongoing surgery. Normal first through fourth metatarsi. Normal metatarsophalangeal joint of the great toe. Normal interphalangeal joint of the great toe. Normal phalanges of the great toe. Normal second through fourth metatarsophalangeal joints. Normal interphalangeal joints and phalanges of the second through fourth toes. There is diffuse soft tissue swelling. RAD/Foot 2 Views IMPRESSION: New amputation of the fifth digit through the fifth metatarsal shaft. Adjacent soft tissue gas, compatible with recent/ongoing surgery. Electronically Signed: Segun Sanders MD at 15:54 EDT ,
[2023-11-22] MEDS: Bupivacaine Mpf 0.5% 30 ML VIAL (14:13)
[2023-11-22] MEDS: Lidocaine 1% (20 ml mdv) 20 ML Vial (14:16)
--- NOTE | 2023-11-22 15:31 | OP.PCM_ITS ---
Problems Associated Problem List Diagnoses (1) Non-pressure chronic ulcer of other part of right foot with necrosis of bone: (2) Non-pressure chronic ulcer of other part of right foot with fat layer exposed: (3) Cellulitis of right foot: (4) Acute osteomyelitis of right foot: (5) Type 2 diabetes mellitus with diabetic polyneuropathy: (6) Type 2 diabetes mellitus with foot ulcer: (7) Peripheral vascular disease: Report of Operation Date of Procedure: 11/22/23 Pre-Operative Diagnosis: 1. Acute osteomyelitis fifth metatarsal and fifth digit right foot 2. Cellulitis right foot 3. Nonpressure ulceration with necrosis of bone lateral fifth metatarsal head right foot 4. Nonpressure ulceration to the level of the subcutaneous tissue right heel 5. Nonpressure ulceration lateral third digit and medial fourth digit 6. Diabetes mellitus type 2 with peripheral polyneuropathy 7. Peripheral vascular disease Post-Operative Diagnosis: 1. Acute osteomyelitis fifth metatarsal and fifth digit right foot 2. Cellulitis right foot 3. Nonpressure ulceration with necrosis of bone lateral fifth metatarsal head right foot 4. Nonpressure ulceration to the level of the subcutaneous tissue right heel 5. Nonpressure ulceration lateral third digit and medial fourth digit 6. Diabetes mellitus type 2 with peripheral polyneuropathy 7. Peripheral vascular disease Surgery/Procedure Performed:: 1. Partial fifth ray amputation right foot 2. Incision and drainage with wide debridement right foot 3. Incision of bone cortex right foot 4. Tissue rearrangement/skin flap right foot 5. Debridement of right heel ulceration with application of advanced wound care product right foot 6. Debridement of ulceration to the level of the subcutaneous tissue medial fourth digit and lateral third digit right foot Description of Surgical Findings:: Acute osteomyelitis fifth metatarsal head with complete osseous destruction and fragmentation and liquefaction of bone. Surgeon: Vega Coyne auctioneer art: Sy Morales DPM PGY-3 Type of Anesthesia: General and Local (20 cc one-to-one mixture 1% lidocaine plain and 0.5% Marcaine plain) Specimen's removed: Tissue and Bone 5th metatarsal/Digit Right foot Drains: None Estimated Blood Loss (mL): < 3 mL Description of Procedure: HPI/indication: Patient is a 73-year-old male who presents to [facility] with concern of worsening right foot infection on 11/21/2023. He was urged at the discretion of his daughter to go in for care following vascular surgical appointment in which radiographs were taken demonstrating acute osteomyelitis of the fifth digit and fifth metatarsal head. Patient states that he was seen in the wound care center back in September 2023 with another provider and was informed of complications of infection and eschar to the lateral aspect of the fifth digit would require surgical intervention. He was urged at that time to obtain his vascular studies prior to the intervention. Patient states that I was stubborn and I thought this would heal on its own so I did not go back. Radiographic imaging obtained 11/18/2023 following his vascular appointment demonstrated acute osteomyelitis of the fifth digit and fifth metatarsal head with complete osseous destruction and fragmentation and liquefaction of bone. Daughter and family brought him into the ED due to worsening right foot infecti on. He was admitted to the hospital for IV antibiotic and podiatry was consulted for surgical intervention. I reviewed his LEAS demonstrating mild arterial occlusive disease at the digital level of the right foot but sufficient evidence for healing of a partial fifth ray amputation. Discussed the procedure in great detail with patient and family. Discussed that this is not an elective procedure and that this is a limb salvage procedure to prevent the spread of infection, further more proximal amputation, and loss of life. Patient and family are understanding of this. Patient states I should have done this back in September but I was stubborn, and I am ready to move forward now. Discussed the risks and complications of the procedure with the patient and family in detail. Discussed that the risks include but are not limited to the following: Pain, continued pain, complex regional pain syndrome, phantom pain, infection, dehiscence, delayed healing/nonhealing, need for further surgical intervention, need for more proximal amputation, transfer lesions, bleeding, neuritis/numbness, poor cosmetic result, scarring, edema, difficulty wearing shoe gear, difficulty with ambulation, allergic reaction, addiction to pain medication, loss of function, loss of limb, loss of life. Patient is understanding of these and was able to repeat these back. Patient again understands that this is a limb salvage procedure and is willing to move forward with the surgical intervention. Patient to undergo partial fifth ray amputation of the right foot, I&D with wide debridement, incision of bone cortex right foot, tissue rearrangement/skin flap right foot, debridement of right heel ulceration with application of advanced wound care product right foot on 11/22/2023 at 1 PM. Procedure: Under mild sedation patient was brought to the operating placed on the table in supine position. Patient was secured to table with safety belt and right foot was elevated with blanket bump. Following induction of general anesthesia a pneumatic ankle tourniquet was placed about the patient's right ankle. A local anesthetic block was then performed proximally about the base of the fifth metatarsal consisting of 10 cc of a one-to-one mixture of 1% lidocaine plain and 0.5% Marcaine plain. The foot was then scrubbed, prepped, and draped in the usual aseptic manner. Next, fluoroscopy was utilized in multiple views confirming presence of acute osteomyelitis of the fifth digit and fifth metatarsal head in addition for incision placement and planning of resection. The right leg was then elevated and the pneumatic ankle tourniquet was inflated to 250 mmHg. At this time attention was then directed to the lateral aspect of the third digit where there was noted ulceration with fibrogranular base measuring 0.4 cm x 0.4 cm x 0.1 cm. Ulceration underwent sharp debridement to the level of the subcutaneous tissue utilizing a #15 blade. 100% of the ulceration was debrided to healthy tissue. Debridement consisted of removal of fibrous, devitalized subcutaneous, biofilm, slough. Postdebridement measurement 0.5 cm x 0.5 cm x 0.1 cm. Next, attention was directed to the medial aspect of the fourth digit where there was noted ulceration with fibrogranular base measuring 0.5 cm x 0.3 cm x 0.1 cm. Ulceration underwent sharp debridement to the level of subcutaneous tissue utilizing a #15 blade. 100% of the ulcerations debrided to healthy tissue. Debridement consisted of removal of fibrous, devitalized subcutaneous, biofilm, slough. Postdebridement measurements 0.6 cm x 0.4 cm x 0.1 cm. Next, attention was directed to the plantar lateral heel where there was an ulceration with central eschar measuring 2.4 cm x 2.7 cm x 0.2 cm. Ulceration underwent sharp debridement to the level of the subcutaneous tissue utilizing a #15 blade. 100% of the ulceration was debrided to healthy tissue. Debridement consisted of removal of eschar, fibrous, devitalized subcutaneous, biofilm, slough. Postdebridement measurement 2.5 cm x 2.8 cm x 0.2 cm. Following debridement 250 mg of advanced wound care product, Axiofill was applied to the ulcerative bed and dressed with Adaptic and anchored with Steri-Strips. At this time attention was directed to the lateral aspect of the right foot where there was a noted ulceration lateral to the fifth metatarsal head with extension into the bone of the fifth metatarsal in addition to eschar and necrotic fifth digit. Incision was made for the proximal midshaft of the fifth metatarsal and dorsal laterally and extended distally to the level of bone encompassing the fifth digit and ulceration lateral to the fifth metatarsal head. Incision was then deepened utilizing sharp and blunt dissection with identification of the fifth metatarsal phalangeal joint and the digit was sharply disarticulated at the level of this joint and passed from the operative field to the table in toto. Digit and tissue sent to pathology for analysis. Next, the fifth metatarsal head was identified and noted to be fragmented with complete osseous destruction and liquefaction of the fifth metatarsal head. Osseous fragments were dissected out and sent to microbiology for analysis in addition to tissue samples and liquefied bone utilizing bone cutter and #15 blade. The remaining distal portion of the fifth metatarsal was noted to be discolored and soft consistent with acute osteomyelitis. Utilizing guidance of fluoroscopy a sagittal saw was utilized to resect the fifth metatarsal more proximally at the level of the proximal shaft. During resection at the proximal portion bone was noted to be of hard quality and of healthy color indicating viability. The section of bone was then passed from the operative field to the table in toto and sent to pathology for analysis. The remaining stump of the fifth metatarsal was noted to be healthy in color and hard in quality indicating viability and was smoothed of any remaining prominences. The remaining soft tissue about the fifth metatarsal was debrided sharply utilizing rongeur and #15 blade removing all necrotic tissue and nonviable tissue to the level of healthy bleeding tissue. Next, the site was copiously irrigated with 3000 cc pulse lavage. Following thorough irrigation the soft tissues were examined with healthy appearing tissue noted and no evidence of necrotic tissue remaining. At this time all flexor and extensor tendons to the fifth digit were identified clamped with hemostat rolled and transected as far proximal as possible. The site then underwent copious irrigation with normal sterile saline. Final fluoroscopic imaging was then obtained demonstrating partial fifth ray amputation of the right foot in multiple fluoroscopic views. 1 g of vancomycin powder was then placed throughout the wound site. The soft tissue then underwent rearrangement for skin flap for adequate and esthetic soft tissue closure. The deep tissue was then closed utilizing 3-0 Vicryl. The subcutaneous tissues were then closed utilizing 4-0 Monocryl. Skin was then reapproximated utilizing 3-0 and 2-0 Prolene in simple interrupted fashion. The pneumatic ankle tourniquet was deflated and a prompt hyperemic response was noted to the digits of the right foot. Incision site was then dressed with Betadine soaked Adaptic, digits were then dressed with Betadine soaked Adaptic, 4 x 4 fluff was placed between the digits, 4 x 4 gauze about the lateral surgical site and heel, the foot was then wrapped with Kerlix x 2 and a 4 inch Smith wrap was rolled onto the right foot to secure the dressings. Patient tolerated the procedure and anesthesia well was transported to PACU vital signs stable vascular status intact to the right foot. Patient will be returned to the floor once anesthesia protocol is met and will continue IV antibiotics. He is to continue to remain nonweightbearing to the right lower extremity with the assistance of a walker. He is also to elevate right foot at all times of rest for postoperative edema control. He is to keep dressings clean, dry, and intact to the right foot. He is to leave graft at the right heel undisturbed and intact. I will continue to follow while in house. Grafts/Implants Used: 250mg Axiofill Right Heel Complications None Admit VTE Documentation VTE Present on Admission: No VTE Mechan Device Prophylaxis: SCD's VTE Pharm Prophylaxis ordered?: No Reason prophylaxis not ordered:: Procedure Not Indicated
--- NOTE | 2023-11-22 15:35 | RAD_ITS ---
EXAM: XR RIGHT FOOT COMPLETE, 3 OR MORE VIEWS CLINICAL INDICATION: Post-op partial 5th ray amputation TECHNIQUE: Frontal, lateral and oblique views of the right foot. COMPARISON: Fluoroscopic images earlier on the same date and foot radiographs, 11/18/2023. FINDINGS: BONES/JOINTS: Apparent erosive changes at the head of the fourth metatarsal. Status post transmetatarsal amputation of the fifth digit. Calcaneal spurs, dorsal midfoot spurring, and additional arthritic changes. No acute fracture. No subluxation. Normal alignment. SOFT TISSUES: Soft tissue swelling in scattered areas of soft tissue emphysema may be secondary to infection or postoperative change. VASCULATURE: Vascular calcifications. RAD/Foot min 3 Views IMPRESSION: 1. Apparent erosive changes at the head of the fourth metatarsal. Cannot exclude osteomyelitis at this location. 2. Soft tissue swelling in scattered areas of soft tissue emphysema may be secondary to infection or postoperative change. 3. Status post transmetatarsal amputation of the fifth digit. Electronically Signed: Jasbir Monte DO at 22:08 EDT ,
--- NOTE | 2023-11-22 15:47 | CASEMGMT ---
Social Work Per the admitting heel cementer, pt does not have a living will nor health care POA and pt declined further information regarding advance directives at that time. Due to pt's refusal, SW did not revisit this topic with pt at this time. CM Bridges
[2023-11-22] MEDS: 0.9% Saline Lock 10 ML Syringe IV (16:46)
[2023-11-22] MEDS: Ketorolac 15 MG/ML Vial IV (16:46)
[2023-11-22 17:09] LABS: Bedside Glucose 117 mg/dL (74-106)
--- NOTE | 2023-11-22 17:27 | PCM.PROGNOTE ---
Subjective Subjective Patient seen following procedure and states that he feels tired. States that he will be ready to eat soon. Denies pain to the foot postsurgically. Objective Data Objective Data Vital Signs: Vital Signs Temp Pulse Resp BP Pulse Ox O2 Del Method O2 Flow Rate 97.1 F L 67 16 141/72 H 93 Nasal Cannula 2 11/22/23 15:45 11/22/23 15:45 11/22/23 15:45 11/22/23 15:45 11/22/23 15:45 11/22/23 15:45 11/22/23 15:45 Oxygen Flow Rate (L/min) 2 Oxygen Delivery Method Nasal Cannula Weight: 87 kg Body Mass Index (BMI) 30.0 Intake & Output: Intake and Output for Last 24 Hours 11/20/23 11/21/23 11/22/23 23:59 23:59 23:59 Intake Total 1640.00 / 1640.00 1265 / 1265 Balance 1640.00 / 1640.00 1265 / 1265 Lab / Micro Data 11/22/23 04:45 11/22/23 04:45 Labs: Laboratory Results - last 24 hr 11/21/23 15:57: POC Glucose 111 H 11/22/23 04:01: POC Glucose 73 L 11/22/23 04:45: WBC 11.7 H, RBC 3.43 L, Hgb 9.4 L, Hct 30.4 L, MCV 88.6, MCH 27.4, MCHC 30.9 L, RDW Std Deviation 45.4 H, RDW Coeff of Marco 14.2, Plt Count 297, MPV 9.6, Immature Gran % (Auto) 0.500, Neut % (Auto) 80.5 H, Lymph % (Auto) 9.5 L, Carbon % (Auto) 6.6, Eos % (Auto) 2.6, Baso % (Auto) 0.3, Absolute Neuts (auto) 9.4 H, Absolute Lymphs (auto) 1.12, Nucleated RBC % 0, Sodium 139, Potassium 4.7, Chloride 112 H, Carbon Dioxide 20.0 L, Anion Gap 7, BUN 43 H, Creatinine 2.79 H, Estim Creat Clear Calc 24.46, Est GFR (MDRD) Af Amer 29 L, Est GFR (MDRD) Non-Af 24 L, BUN/Creatinine Ratio 15.4, Glucose 83, Calcium 8.4 L 11/22/23 06:26: POC Glucose 119 H 11/22/23 12:09: POC Glucose 105 11/22/23 16:40: POC Glucose 117 H Micro: Microbiology 11/21/23 12:45 Wound - Right Foot Gram Stain - Final 11/21/23 12:45 Wound - Right Foot Wound Culture - Preliminary Gram negative sherley Radiography Diagnostic Testing: Radiology Impression Foot X-Ray 11/22/23 12:55 IMPRESSION: New amputation of the fifth digit through the fifth metatarsal shaft. Adjacent soft tissue gas, compatible with recent/ongoing surgery. Electronically Signed: Segun Sanders MD at 15:54 EDT , Physical Exam Const alert, oriented x3 and no apparent distress General Appearance: cooperative HEENT normocephalic Eyes Eyes Narrative: Wears glasses General Eye: normal appearance of both eyes Neck General: normal visual inspection Lymph Lymphatic: no lymphadenopathy noted and no lymphedema noted Resp normal respiratory effort Cardio regular rate and regular rhythm Extremity normal capillary refill and no calf tenderness Extremity Narrative: Right lower extremity: Vascular: DP and PT pulses palpable. CFT is less than 4 seconds to the digits. Normal temperature gradient. Hair growth is absent to the digits. Neurologic: Light touch sensation is diminished. Protective sensation is diminished to foot consistent with diabetic peripheral polyneuropathy. Gross sensation is intact. Musculoskeletal: Muscle strength 5 of 5 age-appropriate. There is pain to palpation about the fifth digit and lateral foot at site of ulceration. No soft tissue crepitus noted. Dermatologic: Sutures intact at the fifth metatarsal amputation stump. Advanced wound care product/graft in place to right heel ulceration and dressed with Adaptic and anchored with Steri-Strips. Ulceration medial aspect of fourth digit and lateral aspect of the third digit appear healthy postdebridement. Surgical dressings in place to the right foot. Skin no rashes or lesions noted, skin turgor normal and no jaundice Neuro moves all extremities Assessment & Plan Assessment/Plan (1) Non-pressure chronic ulcer of other part of right foot with necrosis of bone: (2) Non-pressure chronic ulcer of other part of right foot with fat layer exposed: (3) Cellulitis of right foot: (4) Acute osteomyelitis of right foot: (5) Type 2 diabetes mellitus with diabetic polyneuropathy: (6) Type 2 diabetes mellitus with foot ulcer: (7) Peripheral vascular disease: PLAN: Plan Patient seen and evaluated He is s/p partial fifth ray amputation, I&D with wide debridement, incision of bone cortex, tissue rearrangement/skin flap right foot, debridement of ulceration with application of advanced wound care product right heel, and debridement of ulceration third and fourth digit right foot. DOS 11/22/2023. Right foot: Sutures intact at the fifth metatarsal amputation stump. Advanced wound care product/graft in place to right heel ulceration and dressed with Adaptic and anchored with Steri-Strips. Ulceration medial aspect of fourth digit and lateral aspect of the third digit appear healthy postdebridement. Surgical dressings in place to the right foot. WBC 11.7 pre-surgical; ESR 47; CRP 23.60; lactic acid 0.9 Staph aureus protein A PCR negative; MRSA PCR negative Hemoglobin A1c 6.5% on 11/21/2023 Pre-surgical Radiograph 11/18/23 demonstrates acute osteomyelitis of the fifth metatarsal and fifth digit. I have reviewed his LEAS from 09/09/2023 demonstrating diminished TBI digits of right foot, normal left. Biphasic DP and PT right with biphasic and triphasic DP and PT of the left. Interpretation as evidence of mild arterial occlusive disease at the digital level of the right foot. Patient has sufficient blood flow for healing of partial fifth ray amputation. Surgical cultures: Tissue and bone fifth metatarsal/digit right foot, awaiting results Prior to closure 1 g of vancomycin powder was placed throughout the surgical site at the fifth ray amputation. Medicine currently following for medical management, they are greatly appreciated Infectious disease consulted for antibiotic management Wound nurse following for assistance with dressing changes Surgical dressings to remain intact to the right foot with graft in place to right heel and I will reevaluate on . He is to continue to keep dressings clean, dry, and intact to the right foot and elevate the right foot at all times rest for postoperative edema control. He is to remain nonweightbearing to the right lower extremity following surgical intervention with assistance of a walker. Therapy may work with patient to aid in compliance with nonweightbearing status. Dr. Coyne will continue to follow [facility] Coyne Jr[facility] D[facility] [phone]
--- NOTE | 2023-11-22 18:13 | PCM.POST.ANE ---
Anesthesia: Postop Eval I Current Vital Signs Temperature: 97.5 F Pulse Rate: 80 Blood Pressure: 132/60 Respiratory Rate: 16 Pulse Ox: 94 Assessment Airway patent: Yes Spontaneous unlabored respirations: Yes Mental status: Awake nausea: No Vomiting: No Anesthesia Complication: No Fluid Hydration Crystalloid volume administer (ml): 400 Total IV fluid infused: 400 Progress Note Anesthesia document: Postop Eval 1 completed: Yes
--- NOTE | 2023-11-22 18:15 | PCM.POSTANE2 ---
Anesthesia Postop Eval I Sum Postop Eval Completion status Anesthesia document: Postop Eval 1 completed: Yes Anesthesia Postop Eval I Summary Anesthesia Postop Eval I Summary: Anesthesia Postop Eval I: Assessment Summary Airway patent Yes 11/22/23 18:13 Spontaneous unlabored Yes 11/22/23 18:13 respirations Mental status Awake 11/22/23 18:13 nausea No 11/22/23 18:13 Vomiting No 11/22/23 18:13 Anesthesia Postop Eval I: Fluid Summary Crystalloid volume administer 400 11/22/23 18:13 (ml) Colloids volume administered ( ml) Blood Product volume administered (ml) Total IV fluid infused 400 11/22/23 18:13 Anesthesia Postop Eval I: Summary Notes Anesthesia Complication No 11/22/23 18:13 Anesthesia Complication Comment: Post-operative progress note Anesthesia: Postop Eval II Evaluation Mental status: Awake Pain Level: 1 nausea: No Vomiting: No
[2023-11-22] MEDS: Atorvastatin Calcium 80 MG Tablet PO (21:43)
[2023-11-22] MEDS: Heparin Injection (Vial) 5,000 UNIT/ML VIAL 5000 UNIT SC (21:43)
[2023-11-22] MEDS: Insulin Glargine-YFGN 100 UNIT/ML Pen 40 UNIT SC (21:56)
[2023-11-22] MEDS: Insulin Lispro 100 UNIT/ML INSULN.PEN SC (21:57)
--- NOTE | 2023-11-22 23:48 | RAD_ITS ---
INDICATION: ABD DISTENTION EXAMINATION/TECHNIQUE: X-RAY - Supine AP view. COMPARISON: None FINDINGS: BOWEL GAS PATTERN: Unremarkable. No significant stool retention. CALCIFICATIONS: No abnormal calcifications identified. LOWER CHEST: Visualized lung bases are unremarkable. BONES AND SOFT TISSUES: No acute abnormality. RAD/Abdomen Single View (Portable) IMPRESSION: No evidence of an acute intra-abdominal abnormality. Electronically Signed: Pradeep Durand DO at 1:12 EDT ,
--- NOTE | 2023-11-22 23:51 | PCM.HOSP.N ---
Hospitalist Note Called secondary to indigestion and dyspepsia. Patient ate a full meal at dinner but his complaints are bloating of the stomach. Patient not passing much gas and has hypoactive bowel sounds. Will give simethicone x 1. Stat KUB pending as I am concerned he may have an ileus. Depending on KUB results could consider CT of the abdomen pelvis. If suspected ileus will need to make n.p.o. and continue IV fluids probably with some dextrose as he is on insulin at baseline.
[2023-11-23] VITALS (7 sets, daily range): BP systolic 120–147; BP diastolic 64–72; PULSE 65–85; RESP 18; TEMP 36.3–36.8; O2SAT 92–98
[2023-11-23] MEDS: SimETHICONE 80 MG Chewable Tablet PO (00:13)
[2023-11-23 00:33] LABS: Bedside Glucose 390 mg/dL (74-106)
[2023-11-23 00:33] LABS: Bedside Glucose 407 mg/dL (74-106)
[2023-11-23] MEDS: Insulin Lispro 100 UNIT/ML INSULN.PEN 20 UNIT SC (01:40)
[2023-11-23 03:52] LABS: Bedside Glucose 366 mg/dL (74-106)
[2023-11-23] MEDS: Heparin Injection (Vial) 5,000 UNIT/ML VIAL 5000 UNIT SC ×3 (06:28→20:59)
[2023-11-23] MEDS: Insulin Lispro 100 UNIT/ML INSULN.PEN SC ×2 (06:28→16:15)
[2023-11-23 06:48] LABS: Bedside Glucose 179 mg/dL (74-106)
[2023-11-23 06:48] LABS: Bedside Glucose 223 mg/dL (74-106)
[2023-11-23 07:28] LABS: Hematocrit 28.2 % (40-54); Hemoglobin 8.8 g/dL (13.0-16.5); Mean Corp Hgb Conc 31.2 g/dL (32-36); Mean Corpuscular Hgb 27.8 pg (27.0-32.0); Mean Corpuscular Volume 89.2 fL (80-94); Mean Platelet Vol. 9.8 fl (6.2-12.0); POSITIVE DIFFERENTIAL YES; POSITIVE MORPHOLOGY YES; Platelet Count 262 K/mm3 (150-450); RBC Distribution Width CV 14.1 % (11.6-14.6); RBC Distribution Width SD 45.4 fl (35.1-43.9); Red Blood Count 3.16 M/mm3 (4.6-6.2)
--- NOTE | 2023-11-23 08:09 | WOUNDNOTE ---
Per Dr Coyne, dressing is to remain in place today.
[2023-11-23 08:39] LABS: Anion Gap 6 (5-15); BUN 49 mg/dL (7-18); BUN/Creat Ratio 17.6 RATIO (10-20); Calcium,Total 8.4 mg/dL (8.5-10.1); Chloride 111 mmol/L (98-107); Creatinine, Serum 2.78 mg/dL (0.70-1.30); EST Glomerular Filtration Rate 24 mL/min (>60); Est Glom Filt Rate - Afr Amer 29 mL/min (>60); Estimated Creatinine Clearance 24.55 ml/min; Glucose 196 mg/dL (74-106); Potassium 5.2 mmol/L (3.5-5.1); Sodium Level 136 mmol/L (136-145)
[2023-11-23 08:57] LABS: Differential Indicated MANUAL DIFF
[2023-11-23 09:08] LABS: Eosinophil 1 % (0-5); Lymphocyte 3 % (19-41); Monocyte 10 % (0-10); Neutrophil-Segmented 86 % (47-70); Total Cells Counted 100 (MANUAL DIFF)
[2023-11-23 09:09] LABS: Anisocytosis 1+
[2023-11-23 09:11] LABS: Absolute Neutrophil Count 13.8 X10^3/uL (2.0-7.7)
[2023-11-23] MEDS: Piperacil/Tazobactam 3.375 GM in 0.9% Normal Saline (50mL MB+) 50 ML IV ×2 (09:59→21:03)
[2023-11-23 10:02] LABS: Vancomycin, Trough Level 19.4 ug/mL (5.0-15.0)
[2023-11-23] MEDS: Metoprolol(XL)Succ 25 MG Tablet 75 MG PO (10:04)
[2023-11-23] MEDS: Gabapentin 300 MG Capsule PO ×2 (10:04→20:59)
[2023-11-23] MEDS: Empagliflozin 25 MG Tablet PO (10:04)
[2023-11-23] MEDS: Bumetanide 0.5 MG Tablet 1 MG PO (10:04)
[2023-11-23] MEDS: cloNIDine HCl 0.2 MG Tablet PO ×2 (10:04→20:58)
--- NOTE | 2023-11-23 10:20 | PHA.PHARE_ITS ---
Consult Antibiotic Management Pharmacy has been consulted to manage selected antibiotic: Vancomycin Type of Intervention Type of Consult: Follow-up Suspected Infection Suspected Infection: Osteomyelitis Labs Labs: Sodium 136 mmol/L (136-145) 11/23/23 06:11 Potassium 5.2 mmol/L (3.5-5.1) H 11/23/23 06:11 Chloride 111 mmol/L (98-107) H 11/23/23 06:11 Carbon Dioxide 19.0 mmol/L (21.0-32.0) L 11/23/23 06:11 Anion Gap 6 (5-15) 11/23/23 06:11 BUN 49 mg/dL (7-18) H 11/23/23 06:11 Creatinine 2.78 mg/dL (0.70-1.30) H 11/23/23 06:11 Est GFR (MDRD) Af Amer 29 mL/min (>60) L 11/23/23 06:11 Est GFR (MDRD) Non-Af 24 mL/min (>60) L 11/23/23 06:11 BUN/Creatinine Ratio 17.6 RATIO (10-20) 11/23/23 06:11 Glucose 196 mg/dL (74-106) H 11/23/23 06:11 Vancomycin Trough 19.4 ug/mL (5.0-15.0) H 11/23/23 09:16 Microbiology Microbiology: Microbiology 11/21/23 12:45 Wound - Right Foot Gram Stain - Final 11/21/23 12:45 Wound - Right Foot Wound Culture - Preliminary GNR Poss Pseudomonas sp GNR 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 Will continue current dosing and get a level in 2 days. Pending Level: 11/25/23 @ 0930 Pharmacy Service will continue to monitor and adjust dosing as required.
--- NOTE | 2023-11-23 11:40 | PN_ITS ---
Subjective Subjective Patient seen and examined. He complained of some abdominal distension and some wheezing. He had the partial ray amputation of his right fifth toe yesterday. He has no other complaints and review of systems is otherwise negative. Objective Data Objective Data Vital Signs: Vital Signs Temp Pulse Resp BP Pulse Ox O2 Del Method O2 Flow Rate 97.3 F L 70 18 138/72 H 92 Room Air 2 11/23/23 09:55 11/23/23 10:04 11/23/23 09:55 11/23/23 10:04 11/23/23 09:55 11/23/23 09:55 11/22/23 15:45 Oxygen Flow Rate (L/min) 2 Oxygen Delivery Method Room Air Weight: 191 lb 12.835 oz Body Mass Index (BMI) 30.0 Intake & Output: Intake and Output for Last 24 Hours 11/21/23 11/22/23 11/23/23 23:59 23:59 23:59 Intake Total 1640.00 / 1640.00 2570.00 / 2570.00 290 / 290 Output Total 1140 / 1140 850 / 850 Balance 1640.00 / 1640.00 1430.00 / 1430.00 -560 / -560 Lab / Micro Data 11/23/23 06:11 11/23/23 06:11 Labs: Laboratory Results - last 24 hr 11/22/23 12:09: POC Glucose 105 11/22/23 16:40: POC Glucose 117 H 11/22/23 21:52: POC Glucose 390 H 11/23/23 00:08: POC Glucose 407 H 11/23/23 01:39: POC Glucose 366 H 11/23/23 04:31: POC Glucose 223 H 11/23/23 06:11: WBC 16.0 H, RBC 3.16 L, Hgb 8.8 L, Hct 28.2 L, MCV 89.2, MCH 27.8, MCHC 31.2 L, RDW Std Deviation 45.4 H, RDW Coeff of Marco 14.1, Plt Count 262, MPV 9.8, Neut % (Auto) Not Reportable, Absolute Neuts (auto) 13.8 H, A bsolute Lymphs (auto) 0.50 L, Total Counted 100, Neutrophils % (Manual) 86 H, L ymphocytes % (Manual) 3 L, Monocytes % (Manual) 10, Eosinophils % (Manual) 1, Diff Path Review May foll, Anisocytosis 1+, Sodium 136, Potassium 5.2 H, C hloride 111 H, Carbon Dioxide 19.0 L, Anion Gap 6, BUN 49 H, Creatinine 2.78 H, Estim Creat Clear Calc 24.55, Est GFR (MDRD) Af Amer 29 L, Est GFR (MDRD) Non-Af 24 L, BUN/Creatinine Ratio 17.6, Glucose 196 H, Calcium 8.4 L 11/23/23 06:28: POC Glucose 179 H 11/23/23 09:16: Vancomycin Trough 19.4 H Micro: Microbiology 11/21/23 12:45 Wound - Right Foot Gram Stain - Final 11/21/23 12:45 Wound - Right Foot Wound Culture - Preliminary GNR Poss Pseudomonas sp GNR lactose disc recordist Radiography Diagnostic Testing: Radiology Impression Foot X-Ray 11/22/23 12:55 IMPRESSION: New amputation of the fifth digit through the fifth metatarsal shaft. Adjacent soft tissue gas, compatible with recent/ongoing surgery. Electronically Signed: Segun Sanders MD at 15:54 EDT , Foot X-Ray 11/22/23 15:35 IMPRESSION: 1. Apparent erosive changes at the head of the fourth metatarsal. Cannot exclude osteomyelitis at this location. 2. Soft tissue swelling in scattered areas of soft tissue emphysema may be secondary to infection or postoperative change. 3. Status post transmetatarsal amputation of the fifth digit. Electronically Signed: Jasbir Monte, at 22:08 EDT , KUB X-Ray 11/22/23 23:48 IMPRESSION: No evidence of an acute intra-abdominal abnormality. Electronically Signed: Pradeep Durand DO at 1:12 EDT , Physical Exam Const alert, oriented x3, no apparent distress and average body habitus General Appearance: cooperative HEENT normocephalic, head/scalp atraumatic, hearing grossly normal bilaterally, moist oral mucous membranes and oropharynx normal Eyes PERRL, EOMs intact bilaterally and conjunctivae normal Neck no lymphadenopathy and supple Resp normal respiratory effort, no retractions, no use of accessory muscles and clear to auscultation bilaterally Cardio regular rate, regular rhythm, S1 normal heart sound, S2 normal heart sound and no murmurs GI normal to inspection, nondistended, normoactive bowel sounds, soft to palpation, non-tender and non-distended Extremity normal to inspection Skin Skin Narrative: right foot wrapped in bandage. Neuro oriented x3 and CN's II-XII intact bilaterally Sensorium / Orientation: awake and alert Motor Exam: strength 5/5 throughout and general weakness Psych thought process normal, cooperative and affect normal Appearance: appropriate Assessment & Plan Assessment/Plan (1) Cellulitis of right foot: (2) Acute osteomyelitis of right foot: PLAN: Plan #Acute osteomyelitis of the right foot * had a right foot wound several months ago was told at the wound clinic will likely need amputation but he refused * Has been on oral antibiotics but says has not been working. * right foot xray showed evidence of osteomyelitis of hte right fifth metatarsal and proximal and distal phalanges of the fifth digit as well s diffuse marked soft tissue swelling * On IV vancomycin and Zosyn. * had partial fifth ray amputation of the of hte right fifth toe yesterday, with debridement of right heel ulceration. Today is POD 1. * wound cultures pending. * ID on board. * PT/OT also on board * fall precautions * * #Type 2 diabetes mellitus with neuropathy * On dapagliflozin and dulaglutide. * Also on Lantus. Insulin sliding scale. Accu-Cheks ACHS. * #CKD IIIB: * Creatinine today is 2.78. * It does appear like patient may have underlying CKD as creatinine is notably trended downwards. * Will monitor * #Hyperkalemia: Potassium is 5.2. Will hold any medication that can cause hyperkalemia and give Kayexalate. #Probable heart failure * Patient is on Bumex. He is a bit edematous today with his abdomen being distended. * He is also bit short of breath. * He is in cumulative positive fluid balance by 2.5 L. * will diurese with IV lasix 40mg bid * fluid restriction to 1500cc daily * check BNP * hold home bumex #Afib: on eliquis. will resume eliquis #Hyperlipidemia: on statin #Hypertension; on losartan and metoprolol. IV hydralazine prn. DVT prophylaxis: will resume eliquis Code status: full code * Charges/Coding Visit Charges Inpatient E&M: 98252 Subs Hosp L3
[2023-11-23] MEDS: 0.9% Saline Lock 10 ML Syringe IV ×2 (11:58→17:55)
[2023-11-23] MEDS: Furosemide 40 MG/4 ML Vial IV ×2 (11:59→17:55)
--- NOTE | 2023-11-23 12:05 | ECHOCS_ITS ---
Reason For Study: Dyspnea/SOB Procedure This was a 2D Doppler, Color Flow transthoracic echocardiogram. The study was technically difficult. Contrast injection was performed. Exam performed portable in patient room. Left Ventricle Normal LV size. The estimated ejection fraction is 60 %. Diastolic function is indeterminate. No regional wall motion abnormalities noted. Right Ventricle Normal RV size. Normal systolic function. Atria The left and right atria are normal. No doppler evidence for ASD. Bubble contrast study negative for right to left interatrial shunt. Mitral Valve There is no mitral valve stenosis. Trivial mitral valve insufficiency. Tricuspid Valve There is no tricuspid stenosis. Trivial tricuspid valve insufficiency. Pulmonary artery systolic pressure is 40 mmHg. Aortic Valve Trisinus/trileaflet aortic valve. There is no aortic stenosis. No aortic valve insufficiency. Pulmonic Valve There is no pulmonic valvular stenosis. No pulmonic valve insufficiency. Great Vessels Normal aortic root. Pericardium/Pleural No pericardial effusion. Medication Diluted definity 1ml given slow IV push to enhance endocardial definition. Performed a rapid injection of agitated mix of 9 cc saline and 1cc air to assess for atrial septal defect. MMode/2D Measurements & Calculations LVIDd: 4.5 cm IVSd: 1.3 cm Ao root diam: 3.3 cm LVIDs: 3.0 cm LVPWd: 1.1 cm LA dimension: 4.5 cm RVDd: 3.5 cm FS: 33.9 % LAV(MOD-bp): 56.1 ml LVAd ap4: 32.6 cm2 SV(MOD-sp4): 66.8 ml LAV(MOD-bp) Indexed: 28.3 ml/m2 LVLd ap4: 8.1 cm LAV(MOD-sp2): 58.9 ml EDV(MOD-sp4): 112.2 ml LAV(MOD-sp4): 51.8 ml EDV(sp4-el): 112.0 ml LVAs ap4: 19.1 cm2 LVLs ap4: 6.8 cm ESV(MOD-sp4): 45.4 ml ESV(sp4-el): 45.7 ml EF(MOD-sp4): 59.6 % EF(sp4-el): 59.2 % SV(sp4-el): 66.3 ml LA A4 area: 19.3 cm2 RA A4 area: 16.1 cm2 TAPSE: 1.7 cm Time Measurements MV dec time: 0.17 sec Doppler Measurements & Calculations MV E max sergio: 105.6 cm/sec Lat Peak E' Sergio: 7.3 cm/sec Med Peak E' Sergio: 4.7 cm/sec MV A max sergio: 94.7 cm/sec E/E' lat: 14.6 E/E' med: 22.7 MV E/A: 1.1 MV V2 max: 127.5 cm/sec MV P1/2t max sergio: 128.6 cm/sec Ao V2 max: 112.8 cm/sec MV max P.5 mmHg MV P1/2t: 69.0 msec Ao max P.1 mmHg MV V2 mean: 66.9 cm/sec Ao V2 mean: 74.9 cm/sec MV mean P.1 mmHg MV dec slope: 546.0 cm/sec2 Ao mean P.6 mmHg MV V2 VTI: 40.3 cm MVA(P1/2t): 3.2 cm2 Ao V2 VTI: 27.4 cm AV (velocity ratio): 0.93 LV V1 max: 102.7 cm/sec MR max sergio: 516.2 cm/sec PA V2 max: 84.8 cm/sec LV V1 max P.2 mmHg MR max P.6 mmHg PA max PG (full): 1.0 mmHg LV V1 mean P.3 mmHg MR mean sergio: 407.6 cm/sec PA V2 mean: 61.0 cm/sec LV V1 mean: 70.8 cm/sec MR mean P.0 mmHg PA mean PG (full): 0.63 mmHg LV V1 VTI: 25.7 cm MR VTI: 196.3 cm TR max sergio: 288.9 cm/sec TR max P.4 mmHg ECHO/Echo Complete W/ Contrast Interpretation Summary The estimated ejection fraction is 60 %. Diastolic function is indeterminate. Trivial mitral valve insufficiency. Ordering Physician: Rossi Jenkins Performed By: Dl Landrum [facility]
[2023-11-23 12:20] LABS: Bedside Glucose 137 mg/dL (74-106)
[2023-11-23 12:39] LABS: BNP,B-Type NATRIURETIC PEPTIDE 1005.8 pg/mL (0-100)
[2023-11-23 13:17] LABS: Pathologist Review Reviewed
--- NOTE | 2023-11-23 13:42 | PCM.PN.ID ---
Physical Exam Narrative Feeling ok, pain controlled, no fever, no n/v/d. Const alert and no apparent distress General Appearance: cooperative Resp normal air movement and clear to auscultation bilaterally Cardio regular rate and regular rhythm GI soft to palpation, non-tender and non-distended Skin no rashes or lesions noted Skin Narrative: foot wrapped ID ID: Route of nutrition/ use of supplements: [] Nutritional Intake: [] IV Site: [] Hair Catheter: [] Assessment & Plan Assessment/Plan (1) Type 2 diabetes mellitus with foot ulcer: (2) Acute osteomyelitis of right foot: PLAN: Wound cx possible pseudomonas and GNR. OR 11/22/[address] Coyne for partial 5th ray resection. Cont vanc/zosyn. Will follow (3) Peripheral vascular disease: (4) Acute on chronic renal failure:
[2023-11-23] MEDS: Vancomycin HCl 750 MG in 0.9% Normal Saline (250mL Bag) 250 ML 250 MG IV (15:09)
[2023-11-23] MEDS: Sodium Polystyrene Sulfonate 15 GM/60 ML UDC 30 GM PO (15:10)
--- NOTE | 2023-11-23 17:15 | CASEMGMT ---
RN CM updated by therapy that patient would benefit from knee scooter at discharge. RN CM in to discuss discharge planning with patient. Patient updated regarding knee scooter and updated that [facility] does not cover knee scooter. RN CM updated patient that he could purchase knee scooter at [employer] or [employer] for appoximately $100. Patient voiced understanding. RN CM discussed possible IV ATBs at discharge but cultures and recommendations are still pending. Patient voiced understanding and had no further questions. CM to follow with ID for ATB recommendations at [facility]. CM to follow this patient and plan for a safe discharge.
[2023-11-23 17:16] LABS: Bedside Glucose 156 mg/dL (74-106)
[2023-11-23] MEDS: Atorvastatin Calcium 80 MG Tablet PO (20:58)
[2023-11-23] MEDS: Insulin Glargine-YFGN 100 UNIT/ML Pen 40 UNIT SC (21:07)
[2023-11-24 01:21] LABS: Bedside Glucose 136 mg/dL (74-106)
[2023-11-24 03:44] VITALS: BP 126/64; PULSE 88; RESP 17; TEMP 36.7; O2SAT 99
[2023-11-24] MEDS: Heparin Injection (Vial) 5,000 UNIT/ML VIAL 5000 UNIT SC (06:10)
[2023-11-24 06:52] LABS: Bedside Glucose 64 mg/dL (74-106)
[2023-11-24 06:52] LABS: Bedside Glucose 70 mg/dL (74-106)
[2023-11-24 07:16] LABS: Absolute Lymphocyte Count 1.54 X10^3/uL (0.83-4.51); Absolute Neutrophil Count 11.9 X10^3/uL (2.0-7.7); Basophil# 0.04 X10^3/uL; Basophil% 0.3 % (0-1); Eosinophil# 0.16 X10^3/uL; Eosinophils% 1.1 % (0-5); Hemoglobin 9.3 g/dL (13.0-16.5); Lymphocyte # 1.54 X10^3/ul (0.83-4.51); Lymphocyte % 10.2 % (19-41); Mean Corpuscular Hgb 27.4 pg (27.0-32.0); Mean Corpuscular Volume 88.2 fL (80-94); Mean Platelet Vol. 9.8 fl (6.2-12.0); Monocyte% 9.3 % (0-10); NRBC Flagged by Analyzer 0 % (0-5); Neutrophil # 11.87 X10^3/uL (2.7-7.7); Neutrophil % 78.6 % (47-70); Platelet Count 301 K/mm3 (150-450); RBC Distribution Width CV 14.6 % (11.6-14.6); White Blood Count 15.1 K/mm3 (4.4-11.0)
[2023-11-24 07:37] LABS: Anion Gap 7 (5-15); BUN 45 mg/dL (7-18); BUN/Creat Ratio 16.8 RATIO (10-20); Calcium,Total 8.6 mg/dL (8.5-10.1); Chloride 107 mmol/L (98-107); Creatinine, Serum 2.68 mg/dL (0.70-1.30); EST Glomerular Filtration Rate 25 mL/min (>60); Est Glom Filt Rate - Afr Amer 30 mL/min (>60); Estimated Creatinine Clearance 25.47 ml/min; Glucose 57 mg/dL (74-106); Sodium Level 138 mmol/L (136-145)
--- NOTE | 2023-11-24 08:07 | PN_ITS ---
Subjective Subjective Patient seen early this a.m. bedside in chair with feet elevated. Patient states that he was very comfortable last night and slept in the chair all night. Patient denies pain to the surgical site at the foot. Has remained nonweightbearing with the assistance of a walker. Denies constitutional symptoms. Denies further complaints. Objective Data Objective Data Vital Signs: Vital Signs Temp Pulse Resp BP Pulse Ox O2 Del Method O2 Flow Rate 98.0 F 88 17 126/64 H 99 Nasal Cannula 2 11/24/23 03:44 11/24/23 03:44 11/24/23 03:44 11/24/23 03:44 11/24/23 03:44 11/24/23 03:44 11/24/23 03:44 Oxygen Flow Rate (L/min) 2 Oxygen Delivery Method Nasal Cannula Weight: 87 kg Body Mass Index (BMI) 30.0 Intake & Output: Intake and Output for Last 24 Hours 11/22/23 11/23/23 11/24/23 23:59 23:59 23:59 Intake Total 2570.00 / 2570.00 965 / 965 50 / 50 Output Total 1140 / 1140 1974 / 1974 400 / 400 Balance 1430.00 / 1430.00 -1010 / -1010 -350 / -350 Lab / Micro Data 11/24/23 06:18 11/24/23 06:18 Labs: Laboratory Results - last 24 hr 11/23/23 06:11: WBC 16.0 H, RBC 3.16 L, Hgb 8.8 L, Hct 28.2 L, MCV 89.2, MCH 27.8, MCHC 31.2 L, RDW Std Deviation 45.4 H, RDW Coeff of Marco 14.1, Plt Count 262, MPV 9.8, Neut % (Auto) Not Reportable, Absolute Neuts (auto) 13.8 H, A bsolute Lymphs (auto) 0.50 L, Total Counted 100, Neutrophils % (Manual) 86 H, L ymphocytes % (Manual) 3 L, Monocytes % (Manual) 10, Eosinophils % (Manual) 1, Diff Path Review Reviewed, Anisocytosis 1+, Sodium 136, Potassium 5.2 H, C hloride 111 H, Carbon Dioxide 19.0 L, Anion Gap 6, BUN 49 H, Creatinine 2.78 H, Estim Creat Clear Calc 24.55, Est GFR (MDRD) Af Amer 29 L, Est GFR (MDRD) Non-Af 24 L, BUN/Creatinine Ratio 17.6, Glucose 196 H, Calcium 8.4 L, B-Natriuretic Peptide 1005.8 H 11/23/23 09:16: Vancomycin Trough 19.4 H 11/23/23 11:57: POC Glucose 137 H 11/23/23 16:12: POC Glucose 156 H 11/23/23 20:54: POC Glucose 136 H 11/24/23 06:09: POC Glucose 64 L 11/24/23 06:18: WBC 15.1 H, RBC 3.40 L, Hgb 9.3 L, Hct 30.0 L, MCV 88.2, MCH 27.4, MCHC 31.0 L, RDW Std Deviation 46.0 H, RDW Coeff of Marco 14.6, Plt Count 301, MPV 9.8, Immature Gran % (Auto) 0.500, Neut % (Auto) 78.6 H, Lymph % (Auto) 10.2 L, [place] % (Auto) 9.3, Eos % (Auto) 1.1, Baso % (Auto) 0.3, Absolute Neuts (auto) 11.9 H, Absolute Lymphs (auto) 1.54, Nucleated RBC % 0, Sodium 138, Potassium 4.0, Chloride 107, Carbon Dioxide 24.0, Anion Gap 7, BUN 45 H, C reatinine 2.68 H, Estim Creat Clear Calc 25.47, Est GFR (MDRD) Af Amer 30 L, Est GFR (MDRD) Non-Af 25 L, BUN/Creatinine Ratio 16.8, Glucose 57 L, Calcium 8.6 11/24/23 06:33: POC Glucose 70 L Micro: Microbiology 11/22/23 Unknown Tissue - Toe Gram Stain - Final 11/22/23 Unknown Tissue - Toe Wound Culture - Preliminary Gram negative sherley 11/21/23 08:57 Blood Culture (Wb) - Anticubital Left Blood Culture - Preliminary No growth in 48 hours. 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 Diastolic function is indeterminate. Trivial mitral valve insufficiency. Ordering Physician: Rossi Jenkins Performed By: Dl Landrum RCS Physical Exam Const alert, oriented x3 and no apparent distress General Appearance: cooperative HEENT normocephalic Eyes Eyes Narrative: Wears glasses General Eye: normal appearance of both eyes Neck General: normal visual inspection Lymph Lymphatic: no lymphadenopathy noted and no lymphedema noted Resp normal respiratory effort Cardio regular rate and regular rhythm Extremity normal capillary refill and no calf tenderness Extremity Narrative: Right lower extremity: Vascular: DP and PT pulses palpable. CFT is less than 4 seconds to the digits. Normal temperature gradient. Hair growth is absent to the digits. Neurologic: Light touch sensation is diminished. Protective sensation is diminished to foot consistent with diabetic peripheral polyneuropathy. Gross sensation is intact. Musculoskeletal: Muscle strength 5 of 5 age-appropriate. There is pain to palpation about the fifth digit and lateral foot at site of ulceration. No soft tissue crepitus noted. Dermatologic: Sutures intact at the fifth metatarsal amputation stump. Advanced wound care product/graft in place to right heel ulceration and dressed with Adaptic and anchored with Steri-Strips. Ulceration medial aspect of fourth digit and lateral aspect of the third digit appear healthy postdebridement. Surgical dressings in place to the right foot. Skin no rashes or lesions noted, skin turgor normal and no jaundice Neuro moves all extremities Assessment & Plan Assessment/Plan (1) Non-pressure chronic ulcer of other part of right foot with necrosis of bone: (2) Non-pressure chronic ulcer of other part of right foot with fat layer exposed: (3) Cellulitis of right foot: (4) Acute osteomyelitis of right foot: (5) Type 2 diabetes mellitus with diabetic polyneuropathy: (6) Type 2 diabetes mellitus with foot ulcer: (7) Peripheral vascular disease: PLAN: Plan Patient seen and evaluated He is s/p partial fifth ray amputation, I&D with wide debridement, incision of bone cortex, tissue rearrangement/skin flap right foot, debridement of ulceration with application of advanced wound care product right heel, and debridement of ulceration third and fourth digit right foot. DOS 11/22/2023. POD #2 Right foot: Sutures intact at the fifth metatarsal amputation stump. Advanced wound care product/graft in place to right heel ulceration and dressed with Adaptic and anchored with Steri-Strips. Ulceration medial aspect of fourth digit and lateral aspect of the third digit appear healthy postdebridement. Surgical dressings in place to the right foot. WBC 15.1 Currently on IV Vanco/Zosyn Staph aureus protein A PCR negative; MRSA PCR negative Hemoglobin A1c 6.5% on 11/21/2023 Pre-surgical Radiograph 11/18/23 demonstrates acute osteomyelitis of the fifth metatarsal and fifth digit. I have reviewed his LEAS from 09/09/2023 demonstrating diminished TBI digits of right foot, normal left. Biphasic DP and PT right with biphasic and triphasic DP and PT of the left. Interpretation as evidence of mild arterial occlusive disease at the digital level of the right foot. Patient has sufficient blood flow for healing of partial fifth ray amputation. Surgical cultures: Tissue and bone fifth metatarsal/digit right foot, awaiting results Prior to closure 1 g of vancomycin powder was placed throughout the surgical site at the fifth ray amputation. Medicine currently following for medical management, they are greatly appreciated Infectious disease following for antibiotic management Wound nurse following for assistance with dressing changes Surgical dressings to remain intact to the right heel with graft in place. Surgical dressings of the amputation stump and distal digits changed with Betadine soaked Adaptic, 4 x 4 gauze, ABD, Kerlix, and 4 inch Smith wrap rolled onto the foot. He is to continue to keep dressings clean, dry, and intact to the right foot and elevate the right foot at all times rest for postoperative edema control. He is to remain nonweightbearing to the right lower extremity following surgical intervention with assistance of a walker. Therapy may work continue with patient to aid in compliance with nonweightbearing status. Dr. Coyne will continue to follow Jr. Eduardo Barber.[facility] [phone]
[2023-11-24] MEDS: Piperacil/Tazobactam 3.375 GM in 0.9% Normal Saline (50mL MB+) 50 ML IV (08:28)
[2023-11-24 08:37] VITALS: BP 151/84; PULSE 80; RESP 18; TEMP 36.7; O2SAT 98
[2023-11-24] MEDS: Gabapentin 300 MG Capsule PO ×2 (08:43→21:51)
[2023-11-24 08:44] VITALS: PULSE 80
[2023-11-24] MEDS: Metoprolol(XL)Succ 25 MG Tablet 75 MG PO (08:44)
[2023-11-24] MEDS: Furosemide 40 MG/4 ML Vial IV ×2 (08:44→16:49)
[2023-11-24] MEDS: cloNIDine HCl 0.2 MG Tablet PO ×2 (08:44→21:35)
[2023-11-24] MEDS: Empagliflozin 25 MG Tablet PO (08:45)
--- NOTE | 2023-11-24 08:57 | CASEMGMT ---
Discharge Planning A list of HH providers including quality and resource use data and consistent with the patient's preferred geographic region, medical needs, and insurance network was created in [employer].? This list was provided to the RN ADDIS. Alka Johnston, Discharge Planning Asst.
--- NOTE | 2023-11-24 09:40 | WOUNDNOTE ---
wound photo: right lateral foot
--- NOTE | 2023-11-24 10:46 | CASEMGMT ---
Addendum entered by Rosanna Flores 11/24/23 12:02: 1153-CAREY MANCINI into pt room, pt dtr and present. They have reviewed the HH list and have chosen [facility] 2. [facility] 3. [facility]. Requested dC social research assistant send referral. Original Note: CAREY MANCINI into pt room, pt sitting up in chair with dtr at bedside. Discussed dc planning with pt. Provided pt with a list of [facility] agencies created by dc social research assistant. Pt to review list and CAREY MANCINI to check back on top 3 preferences. Pt denies further needs at this time.
--- NOTE | 2023-11-24 11:09 | PCM.PN.ID ---
Physical Exam Narrative Feeling better, no fever, no n/v/d. Const alert and no apparent distress General Appearance: cooperative Resp normal air movement and clear to auscultation bilaterally Cardio regular rate and regular rhythm GI soft to palpation, non-tender and non-distended Skin Skin Narrative: foot wrapped ID ID: Route of nutrition/ use of supplements: [] Nutritional Intake: [] IV Site: [] Hair Catheter: [] Assessment & Plan Assessment/Plan (1) Type 2 diabetes mellitus with foot ulcer: (2) Acute osteomyelitis of right foot: PLAN: Wound cx possible pseudomonas and enterobacter. OR 11/22/[address] Coyne for partial 5th ray resection. Will narrow to cefepime and po flagyl. Will follow (3) Peripheral vascular disease: (4) Acute on chronic renal failure:
[2023-11-24] MEDS: Insulin Lispro 100 UNIT/ML INSULN.PEN SC ×3 (11:27→21:41)
--- NOTE | 2023-11-24 11:39 | PN_ITS ---
Subjective Subjective Patient seen and examined. He had no complaints and felt much better. His shortness of breath and abdominal distension have resolved. Review of systems is otherwise negative. He has remained hemodynamically stable. Objective Data Objective Data Vital Signs: Vital Signs Temp Pulse Resp BP Pulse Ox O2 Del Method O2 Flow Rate 98.1 F 80 18 151/84 H 98 Room Air 2 11/24/23 08:37 11/24/23 08:44 11/24/23 08:37 11/24/23 08:37 11/24/23 08:37 11/24/23 08:37 11/24/23 03:44 Oxygen Flow Rate (L/min) 2 Oxygen Delivery Method Room Air Weight: 191 lb 12.835 oz Body Mass Index (BMI) 30.0 Intake & Output: Intake and Output for Last 24 Hours 11/22/23 11/23/23 11/24/23 23:59 23:59 23:59 Intake Total 2570.00 / 2570.00 965 / 965 50 / 50 Output Total 1140 / 1140 1974 / 1974 400 / 400 Balance 1430.00 / 1430.00 -1010 / -1010 -350 / -350 Lab / Micro Data 11/24/23 06:18 11/24/23 06:18 Labs: Laboratory Results - last 24 hr 11/23/23 06:11: Diff Path Review Reviewed, B-Natriuretic Peptide 1005.8 H 11/23/23 11:57: POC Glucose 137 H 11/23/23 16:12: POC Glucose 156 H 11/23/23 20:54: POC Glucose 136 H 11/24/23 06:09: POC Glucose 64 L 11/24/23 06:18: WBC 15.1 H, RBC 3.40 L, Hgb 9.3 L, Hct 30.0 L, MCV 88.2, MCH 27.4, MCHC 31.0 L, RDW Std Deviation 46.0 H, RDW Coeff of Marco 14.6, Plt Count 301, MPV 9.8, Immature Gran % (Auto) 0.500, Neut % (Auto) 78.6 H, Lymph % (Auto) 10.2 L, [place] % (Auto) 9.3, Eos % (Auto) 1.1, Baso % (Auto) 0.3, Absolute Neuts (auto) 11.9 H, Absolute Lymphs (auto) 1.54, Nucleated RBC % 0, Sodium 138, Potassium 4.0, Chloride 107, Carbon Dioxide 24.0, Anion Gap 7, BUN 45 H, C reatinine 2.68 H, Estim Creat Clear Calc 25.47, Est GFR (MDRD) Af Amer 30 L, Est GFR (MDRD) Non-Af 25 L, BUN/Creatinine Ratio 16.8, Glucose 57 L, Calcium 8.6 11/24/23 06:33: POC Glucose 70 L Micro: Microbiology 11/21/23 12:45 Wound - Right Foot Gram Stain - Final 11/21/23 12:45 Wound - Right Foot Wound Culture - Preliminary GNR Poss Pseudomonas sp GNR lactose operations general agent 11/22/23 Unknown Tissue - Toe Gram Stain - Final 11/22/23 Unknown Tissue - Toe Wound Culture - Preliminary Enterobacter cloacae complex GNR Poss Pseudomonas sp 11/21/23 08:57 Blood Culture (Wb) - Anticubital Left Blood Culture - Preliminary No growth in 48 hours. Radiography Diagnostic Testing: Radiology Impression Echocardiogram 11/23/23 12:05 Interpretation Summary The estimated ejection fraction is 60 %. Diastolic function is indeterminate. Trivial mitral valve insufficiency. Ordering Physician: Rossi Jenkins Performed By: Dl Landrum [facility] Physical Exam Const alert, oriented x3, no apparent distress and average body habitus General Appearance: cooperative HEENT normocephalic, head/scalp atraumatic, hearing grossly normal bilaterally, moist oral mucous membranes and oropharynx normal Eyes PERRL, EOMs intact bilaterally and conjunctivae normal Neck no lymphadenopathy and supple Resp normal respiratory effort, normal air movement, no retractions, no use of accessory muscles and clear to auscultation bilaterally Cardio regular rate, regular rhythm, S1 normal heart sound, S2 normal heart sound and no murmurs GI normal to inspection, nondistended, normoactive bowel sounds, soft to palpation, non-tender and non-distended GI Narrative: abdominal distension from yesterday has improved. Extremity normal to inspection General Extremity: no tenderness to palpation of joints or extremities Skin Skin Narrative: right foot wrapped in bandage. Neuro oriented x3 and CN's II-XII intact bilaterally Sensorium / Orientation: awake and alert Motor Exam: strength 5/5 throughout and general weakness Psych thought process normal, cooperative and affect normal Appearance: appropriate Assessment & Plan Assessment/Plan (1) Cellulitis of right foot: (2) Acute osteomyelitis of right foot: PLAN: Plan #Acute osteomyelitis of the right foot * had a right foot wound several months ago was told at the wound clinic will likely need amputation but he refused * Has been on oral antibiotics but says has not been working. * right foot xray showed evidence of osteomyelitis of hte right fifth metatarsal and proximal and distal phalanges of the fifth digit as well s diffuse marked soft tissue swelling * On IV vancomycin and Zosyn. * had partial fifth ray amputation of the of the right fifth toe, with debridement of right heel ulceration. Today is POD 2. * wound cultures growing possible Pseudomonas and Enterobacter. * ID on board. * PT/OT also on board * fall precautions * Antibiotics narrowed down to p.o. Flagyl and IV cefepime per ID. * #Type 2 diabetes mellitus with neuropathy * On dapagliflozin and dulaglutide. * Also on Lantus. Insulin sliding scale. Accu-Cheks ACHS. * #CKD IIIB: * Creatinine today is 2.68 * It does appear like patient may have underlying CKD as creatinine is notably trended downwards. * Will monitor * #Hyperkalemia: Resolved. Potassium is 4 today. #Probable heart failure * Patient is on Bumex. He is a bit edematous today with his abdomen being distended. * He is also bit short of breath. * He is in cumulative positive fluid balance by 1.7L today. * will continue to diurese with IV lasix 40mg bid * fluid restriction to 1500cc daily * hold home bumex * 2D echo showed EF of 65% with indeterminate diastolic function and no regional wall motion abnormalities noted. * #Afib: on eliquis. #Hyperlipidemia: on statin #Hypertension; on losartan and metoprolol. IV hydralazine prn. DVT prophylaxis: eliquis resumed Code status: full code * Charges/Coding Visit Charges Inpatient E&M: 64613 Subs Hosp L2
[2023-11-24 11:50] LABS: Bedside Glucose 249 mg/dL (74-106)
[2023-11-24] MEDS: NORMAL SALINE 0.9% IV (12:40)
[2023-11-24] MEDS: CEFEPIME HCL IV (12:40)
--- NOTE | 2023-11-24 13:04 | CASEMGMT ---
Discharge Planning Referral sent via [facility] to [facility]. Alka Johnston DC Planning Asst.
[2023-11-24] MEDS: metroNIDAZOLE 500 MG Tablet PO ×2 (13:38→21:37)
[2023-11-24 15:05] VITALS: BP 138/74; PULSE 81; RESP 18; TEMP 36.6; O2SAT 98
[2023-11-24 17:12] LABS: Bedside Glucose 323 mg/dL (74-106)
[2023-11-24 21:05] VITALS: BP 130/83; PULSE 84; RESP 18; TEMP 36.8; O2SAT 97
[2023-11-24] MEDS: APIXABAN 5 MG TABLET PO (21:37)
[2023-11-24] MEDS: Insulin Glargine-YFGN 100 UNIT/ML Pen 40 UNIT SC (21:41)
[2023-11-24 22:49] LABS: Bedside Glucose 208 mg/dL (74-106)
[2023-11-24] MEDS: Atorvastatin Calcium 80 MG Tablet PO (23:36)
[2023-11-25 03:00] VITALS: BP 121/69; PULSE 64; RESP 18; TEMP 36.9; O2SAT 96
[2023-11-25 05:21] VITALS: BMI 30.1
[2023-11-25] MEDS: metroNIDAZOLE 500 MG Tablet PO ×2 (06:17→14:07)
[2023-11-25 07:05] LABS: Bedside Glucose 66 mg/dL (74-106)
[2023-11-25 07:20] LABS: Absolute Lymphocyte Count 1.45 X10^3/uL (0.83-4.51); Absolute Neutrophil Count 7.1 X10^3/uL (2.0-7.7); Basophil# 0.03 X10^3/uL; Basophil% 0.3 % (0-1); Eosinophil# 0.25 X10^3/uL; Eosinophils% 2.5 % (0-5); Hematocrit 28.6 % (40-54); Lymphocyte # 1.45 X10^3/ul (0.83-4.51); Lymphocyte % 14.5 % (19-41); Mean Corp Hgb Conc 31.5 g/dL (32-36); Mean Corpuscular Hgb 27.6 pg (27.0-32.0); Mean Corpuscular Volume 87.7 fL (80-94); Mean Platelet Vol. 9.6 fl (6.2-12.0); Monocyte# 1.13 X10^3/uL; Monocyte% 11.3 % (0-10); NRBC Flagged by Analyzer 0 % (0-5); Neutrophil % 70.9 % (47-70); Platelet Count 291 K/mm3 (150-450); RBC Distribution Width CV 14.5 % (11.6-14.6); RBC Distribution Width SD 46.3 fl (35.1-43.9); Red Blood Count 3.26 M/mm3 (4.6-6.2)
[2023-11-25 08:21] LABS: Anion Gap 9 (5-15); BUN 45 mg/dL (7-18); BUN/Creat Ratio 18.4 RATIO (10-20); Calcium,Total 8.5 mg/dL (8.5-10.1); Chloride 106 mmol/L (98-107); Creatinine, Serum 2.45 mg/dL (0.70-1.30); EST Glomerular Filtration Rate 28 mL/min (>60); Est Glom Filt Rate - Afr Amer 33 mL/min (>60); Estimated Creatinine Clearance 27.89 ml/min; Glucose 82 mg/dL (74-106); Potassium 3.5 mmol/L (3.5-5.1); Sodium Level 140 mmol/L (136-145)
[2023-11-25 09:15] VITALS: BP 145/65; PULSE 82; RESP 18; TEMP 36.6; O2SAT 98
[2023-11-25] MEDS: Gabapentin 300 MG Capsule PO (09:16)
[2023-11-25] MEDS: APIXABAN 5 MG TABLET PO (09:18)
[2023-11-25] MEDS: Furosemide 40 MG/4 ML Vial IV (09:19)
[2023-11-25] MEDS: Empagliflozin 25 MG Tablet PO (09:19)
[2023-11-25 09:20] VITALS: PULSE 82
[2023-11-25] MEDS: Metoprolol(XL)Succ 25 MG Tablet 75 MG PO (09:20)
[2023-11-25] MEDS: cloNIDine HCl 0.2 MG Tablet PO (09:20)
[2023-11-25] MEDS: 0.9% Saline Lock 10 ML Syringe IV (09:21)
[2023-11-25] MEDS: NORMAL SALINE 0.9% IV (09:30)
[2023-11-25] MEDS: CEFEPIME HCL IV (09:30)
--- NOTE | 2023-11-25 11:12 | CASEMGMT ---
Addendum entered by Rosanna Flores 11/25/23 14:09: CAREY MANCINI into pt room, he is aware that [facility] has accepted pt for services and will be out either Tuesday or Tuesday. Pt verbalizes understanding. Pt denies any further homegoing needs and thanks CAREY MANCINI. Original Note: CAREY MANCINI into pt room, pt is aware that CAREY MANCINI is still working on his [facility] but will let him know as soon as an agency accepts. Answered pt questions, pt denies further needs.
--- NOTE | 2023-11-25 11:21 | CASEMGMT ---
Discharge Planning Referral sent via [facility] to [facility]. Alka Johnston DC Planning Asst.
[2023-11-25] MEDS: Insulin Lispro 100 UNIT/ML INSULN.PEN SC (11:43)
[2023-11-25 12:03] LABS: Bedside Glucose 154 mg/dL (74-106)
--- NOTE | 2023-11-25 12:11 | CASEMGMT ---
Discharge Planning Patient has been accepted by [facility]. Alka Johnston DC Planning Asst.
--- NOTE | 2023-11-25 13:20 | PN.ID_ITS ---
Physical Exam Narrative Feeling well, home planned, no fever, no n/v/d. Const alert and no apparent distress General Appearance: cooperative Resp normal air movement and clear to auscultation bilaterally Cardio regular rate and regular rhythm GI soft to palpation, non-tender and non-distended Skin Skin Narrative: foot wrapped ID ID: Route of nutrition/ use of supplements: [] Nutritional Intake: [] IV Site: [] Hair Catheter: [] Assessment & Plan Assessment/Plan (1) Type 2 diabetes mellitus with foot ulcer: (2) Acute osteomyelitis of right foot: PLAN: Wound cx possible enterococcus, pseudomonas, klebs, and enterobacter. OR 11/22/[address] Coyne for partial 5th ray resection. On cefepime and po fl agyl. Ok for home with one week po cipro 500mg daily and po augmentin 500mg q12h. Will follow (3) Peripheral vascular disease: (4) Acute on chronic renal failure:
--- NOTE | 2023-11-25 13:53 | DS.PCM_ITS ---
Providers Date of Admission: 11/21/23 Date of Discharge: 11/25/23 Primary Care Physician: Dr. Jose Ross MD Consultations 11/21/23 11:16 Consult: Onc/Wound/oreman Routine Comment: Consult: Podiatry Routine Consulting Provider: Vega Coyne Reason for Consult: right foot osteomyelitis EMERGENT Consult: No MD Notified: Yes Date Notified: 11/21/23 Time Notified: 10:07 Method of Notification: ED Physician Initiated 11/21/23 19:10 Consult: Infectious Disease Routine Consulting Provider: Silvino Tenorio Reason for Consult: Osteomyelitis 5th metatarsal Right foot EMERGENT Consult: No MD Notified: Yes Date Notified: 11/21/23 Time Notified: 06:59 Method of Notification: Answering Service Reason For Visit: RIGHT FOOT OSTEOMYELITIS Diagnosis Discharge Diagnosis (1) Type 2 diabetes mellitus with foot ulcer: Status: Acute Code(s): E11.621 - Type 2 diabetes mellitus with foot ulcer; L97.509 - Non-pressure chronic ulcer of other part of unspecified foot with unspecified severity (2) Acute osteomyelitis of right foot: Status: Acute Code(s): M86.171 - Other acute osteomyelitis, right ankle and foot (3) Peripheral vascular disease: Status: Acute Code(s): I73.9 - Peripheral vascular disease, unspecified (4) Acute on chronic renal failure: Status: Chronic Code(s): N17.9 - Acute kidney failure, unspecified; N18.9 - Chronic kidney disease, unspecified Plan #Acute osteomyelitis of the right foot * had a right foot wound several months ago was told at the wound clinic will likely need amputation but he refused * Has been on oral antibiotics but says has not been working. * right foot xray showed evidence of osteomyelitis of hte right fifth metatarsal and proximal and distal phalanges of the fifth digit as well s diffuse marked soft tissue swelling * On IV vancomycin and Zosyn. * had partial fifth ray amputation of the of the right fifth toe, with debridement of right heel ulceration. Today is POD 2. * wound cultures growing possible Pseudomonas and Enterobacter. * ID on board. * PT/OT also on board * fall precautions * Antibiotics narrowed down to p.o. Flagyl and IV cefepime per ID. * #Type 2 diabetes mellitus with neuropathy * On dapagliflozin and dulaglutide. * Also on Lantus. Insulin sliding scale. Accu-Cheks ACHS. * #CKD IIIB: * Creatinine today is 2.68 * It does appear like patient may have underlying CKD as creatinine is notably trended downwards. * Will monitor * #Hyperkalemia: Resolved. Potassium is 4 today. #Probable heart failure * Patient is on Bumex. He is a bit edematous today with his abdomen being distended. * He is also bit short of breath. * He is in cumulative positive fluid balance by 1.7L today. * will continue to diurese with IV lasix 40mg bid * fluid restriction to 1500cc daily * hold home bumex * 2D echo showed EF of 65% with indeterminate diastolic function and no regional wall motion abnormalities noted. * #Afib: on eliquis. #Hyperlipidemia: on statin #Hypertension; on losartan and metoprolol. IV hydralazine prn. DVT prophylaxis: eliquis resumed Code status: full code * Medications at Discharge Home Medications apixaban 5 mg tablet (Eliquis) 5 mg PO BID 08/30/23 atorvastatin 10 mg tablet 80 mg PO QHS cholesterol 08/30/23 calcitriol 0.25 mcg capsule PO 08/30/23 clonidine HCl 0.2 mg tablet 0.2 mg PO BID 08/30/23 dapagliflozin propanediol 10 mg tablet 10 mg PO DAILY 08/30/23 dulaglutide 0.75 mg/0.5 mL subcutaneous pen injector (Trulicity) 0.75 mg subcut QWEEK 08/30/23 ergocalciferol (vitamin D2) 1,250 mcg (50,000 unit) capsule 1,250 mcg PO QWEEK 08/30/23 gabapentin 300 mg capsule 300 mg PO BID 08/30/23 insulin glargine 100 unit/mL (3 mL) subcutaneous pen (Lantus Solostar U-100 Insulin) 40 unit subcut QHS 08/30/23 insulin glargine-yfgn 100 unit/mL (3 mL) subcutaneous pen (Semglee (insulin glargine-yfgn) Pen) 22 unit subcut 08/30/23 insulin lispro 100 unit/mL subcutaneous solution 20 unit subcut .with meals 08/30/23 losartan 25 mg tablet 25 mg PO DAILY 08/30/23 metoprolol succinate 25 mg tablet,extended release 24 hr 75 mg PO DAILY 08/30/23 mupirocin 2 % topical ointment 1 applic topical TID 08/30/23 pen needle, diabetic 31 gauge x 3/16 (BD Ultra-Fine Mini Pen Needle) 08/30/23 bumetanide 1 mg tablet 1 mg PO DAILY 11/18/23 amoxicillin 500 mg-potassium clavulanate 125 mg tablet (Augmentin) 1 tab PO BID #14 tabs 11/25/23 ciprofloxacin HCl 500 mg tablet (Cipro) 500 mg PO DAILY #7 tabs 11/25/23 oxycodone 5 mg tablet 5 mg PO Q4H PRN PRN Pain Score 4-10 3 days #18 tabs 11/25/23 Hospital Course Operations - (right fifth toe ray amputation) Procedures None Summary of Care Provided Minutes Spent on Discharge: 55 Hospital Course: 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 He sustained an abrasion to his right foot three months ago and had been seeing wound care. Apparently amputation was recommended but patient refused. He said he subsequently noted that he had an infection in his foot but discharge so he went see his PCP and was placed on oral antibiotics. He states he took the antibiotics for about 2 weeks and was also referred to vascular surgery. He went see vascular surgery and was seen by the nurse practitioner. Imaging done recently showed right foot infection, concerning for osteomyelitis. He was placed on oral augmentin and bactrim, but his symptoms were not improving so he came in tot he ED. Vitals in the ED were BP of 12/57, VT of 54, RR of 14 and temp of 98F. He was saturating at 100% on room air. CBC showed Hb of 9.6, wbc of 9.4 and platelets of 302. ESR was 47. Chemsitry shwoed sodium of 137, potassium of 4.7 and Cr of 2.99. Right foot xray from 11/18/2023 showed marked diffuse soft tissue swelling and osteopenia with moderate to markedm osteoarthritic changes and findings of osteomyelitis of the fifth metatarsal and proximal and distal phalanges of the fifth digit. He was admitted to be managed for acute osteomyelitis of the fifth metatarsal digit. Podiatry and infectious disease were consulted and he was started on IV vancomycin and Zosyn. Podiatry evaluated him and recommended partial ray amputation. He did have the partial fifth ray resection done on 11/22/2023. Wound cultures grew Enterococcus, Klebsiella, Pseudomonas and Enterobacter. Antibiotics were switched to IV cefepime and p.o. Flagyl. Infectious disease. He was subsequently transition to p.o. Cipro and p.o. Augmentin by ID. He remained stable and was discharged on 11/25/2023 on p.o. ciprofloxacin and p.o. Augmentin for 1 week. Prescription was written. ID. Per podiatry he is to be nonweight bearing on the affected right leg and is to only ambulate with a walker. He is to follow-up with his primary care doctor and with podiatry within 1 week. He was given a prescription for p.o. oxycodone 5 mg every 4 hours as needed for total of 18 tablets for 3 days. OARRS score was checked and no red flags were seen. Patient seen and examined prior to discharge. He felt well and had no complaints. He had an uneventful night. Review of symptoms otherwise negative. Labs and vitals reviewed. Home medication reviewed and reconciled. Physical Exam Const alert, oriented x3, no apparent distress and average body habitus General Appearance: cooperative, comfortable and well kempt Orientation / Consciousness: awake HEENT normocephalic, head/scalp atraumatic, hearing grossly normal bilaterally, moist oral mucous membranes and oropharynx normal Mouth: oral and palatal mucosa normal Eyes PERRL, EOMs intact bilaterally and conjunctivae normal Neck no lymphadenopathy and supple Resp normal respiratory effort, normal air movement, no retractions, no use of accessory muscles and clear to auscultation bilaterally Cardio regular rate, regular rhythm, S1 normal heart sound, S2 normal heart sound and no murmurs GI normal to inspection, nondistended, normoactive bowel sounds, soft to palpation, non-tender and non-distended Extremity normal to inspection General Extremity: no tenderness to palpation of joints or extremities Skin Skin Narrative: right foot wrapped in bandage. Neuro oriented x3 and CN's II-XII intact bilaterally Sensorium / Orientation: awake and alert Motor Exam: strength 5/5 throughout and general weakness Psych thought process normal, cooperative and affect normal Appearance: appropriate Weight / BMI Weight Weight: 192 lb 3.889 oz Body Mass Index (BMI) 30.1 ABG / Lab / Microbiology Data 11/25/23 06:44 11/25/23 06:44 Laboratory: Laboratory Results - last 24 hr 11/24/23 16:44: POC Glucose 323 H 11/24/23 21:40: POC Glucose 208 H 11/25/23 06:21: POC Glucose 66 L 11/25/23 06:44: WBC 10.0, RBC 3.26 L, Hgb 9.0 L, Hct 28.6 L, MCV 87.7, MCH 27.6, MCHC 31.5 L, RDW Std Deviation 46.3 H, RDW Coeff of Marco 14.5, Plt Count 291, MPV 9.6, Immature Gran % (Auto) 0.500, Neut % (Auto) 70.9 H, Lymph % (Auto) 14.5 L, Sevier % (Auto) 11.3 H, Eos % (Auto) 2.5, Baso % (Auto) 0.3, Absolute Neuts (auto) 7.1, Absolute Lymphs (auto) 1.45, Nucleated RBC % 0, Sodium 140, Potassium 3.5, Chloride 106, Carbon Dioxide 25.0, Anion Gap 9, BUN 45 H, Creatinine 2.45 H, Estim Creat Clear Calc 27.89, Est GFR (MDRD) Af Amer 33 L, Est GFR (MDRD) Non-Af 28 L, BUN/Creatinine Ratio 18.4, Glucose 82, Calcium 8.5 11/25/23 11:41: POC Glucose 154 H Microbiology: Microbiology 11/22/23 Unknown Tissue - Toe Gram Stain - Final 11/22/23 Unknown Tissue - Toe Wound Culture - Preliminary Enterobacter cloacae complex GNR Poss Pseudomonas sp Gram Positive Cocci Gram positive sherley 11/21/23 12:45 Wound - Right Foot Gram Stain - Final 11/21/23 12:45 Wound - Right Foot Wound Culture - Preliminary Pseudomonas aeruginosa Klebsiella oxytoca Enterobacter cloacae complex GPC Poss Enterococcus sp 11/21/23 08:57 Blood Culture (Wb) - Anticubital Left Blood Culture - Preliminary No growth in 48 hours. D/C Instructions Discharge Diet: Low fat / Low cholesterol Discharge Activity: Return to Normal Activity Weight Bearing Status: No weight bearing (to right foot, only use walker to ambulate) Call your doctor if your incision/area has: Continuous Slow Oozing, Sudden Increased Bleeding, Increased Pain/ Swelling, Increased Redness, Foul Smelling Discharge and Swelling at the incision site Call your doctor if you observe: Fever of 101 or Higher, Swelling in the ankles, Chest pain and Uncontrolled pain Meaningful Use Info Meaningful Use Meaningful Use Diagnoses (Choose all that apply): None applicable Ischemic Stroke Statin Dosing Therapy Reference: STATIN DOSE THERAPY REFERENCE: * Patients > 75 years receive moderate or high dose statin therapy. * Patients 75 years or YOUNGER should receive HIGH intensity statin dose unless contraindicated. You will be required to document reason for non-treatment if statin daily dose does not meet guidelines. HIGH DOSE STATIN THERAPY DAILY Atorvastatin > than or = to 40 mg Rosuvastatin > than or = to 20 mg Amlodipine + Atorvastatin > than or = to 2.5/40 mg Ezetimibe + Simvastatin 10/80 mg Simvastatin 80mg Discharge Plan Admission Admit Date/Time: 11/21/23 10:02 Primary Reason for Your Visit: osteomyelitis of the right little toe Attending Provider: Rossi Jenkins Primary Care Provider: Jose Ross Consulting Providers: Vega Coyne; Silvino Tenorio Instructions Patient Instructions: Osteomyelitis Dc Discharge Orders/Prescriptions Prescriptions: New amoxicillin-pot clavulanate [Augmentin] 500-125 mg tablet 1 tab PO BID Qty: 14 0RF ciprofloxacin HCl [Cipro] 500 mg tablet 500 mg PO DAILY Qty: 7 0RF oxycodone 5 mg Tablet 5 mg PO Q4H PRN PRN (Reason: Pain Score 4-10) 3 Days Qty: 18 0RF Continued atorvastatin 10 mg tablet 80 mg PO QHS clonidine HCl 0.2 mg tablet 0.2 mg PO BID losartan 25 mg tablet 25 mg PO DAILY gabapentin 300 mg capsule 300 mg PO BID mupirocin 2 % ointment 1 applic topical TID metoprolol succinate 25 mg tablet extended release 24 hr 75 mg PO DAILY ergocalciferol (vitamin D2) 1,250 mcg (50,000 unit) capsule 1,250 mcg PO QWEEK insulin lispro 100 unit/mL solution 20 unit subcut .with meals calcitriol 0.25 mcg capsule PO (DME) pen needle, diabetic [BD Ultra-Fine Mini Pen Needle] 31 gauge x 3/16 needle MISCELLANEOUS UD insulin glargine [Lantus Solostar U-100 Insulin] 100 unit/mL (3 mL) insulin pen 40 unit subcut QHS Eliquis 5 mg tablet 5 mg PO BID dapagliflozin propanediol 10 mg tablet 10 mg PO DAILY Trulicity 0.75 mg/0.5 mL pen injector 0.75 mg subcut QWEEK insulin glargine-yfgn [Semglee(insulin glarg-yfgn)Pen] 100 unit/mL (3 mL) insulin pen 22 unit subcut bumetanide 1 mg tablet 1 mg PO DAILY Discontinued amoxicillin-pot clavulanate 875-125 mg tablet 1 tab PO BID 7 Days Qty: 14 0RF sulfamethoxazole-trimethoprim 800-160 mg tablet 1 tab PO BID 7 Days Qty: 14 0RF Referrals / Follow Up: Jose Ross MD [Primary Care Provider] - 12/02/23 9:40 am Vega Coyne DPM [Med Staff - Active Staff] - Within 1 Week Disposition Disposition (needs filled in before D/C Order can be placed): Home, Self Care Charges/Coding Visit Charges Inpatient E&M: 20463 Disch Hosp >30min
[2023-11-25 14:06] VITALS: BP 141/87; PULSE 88; RESP 18; TEMP 36.7; O2SAT 98
--- NOTE | 2023-11-25 14:18 | CASEMGMT ---
Discharge Planning Discharge instructions sent to [facility]. Alka Johnston DC Planning Asst.
== END 2023-11-25 15:57 | disposition home health service (06) | DRG 616 ==
LOC: ED 09:46 → PCU 10:17
PROVIDERS: Student in an Organized Health Care Education/Training Program; Admitting Provider Student in an Organized Health Care Education/Training Program; Emergency Provider Emergency Medicine; PCP Family Medicine; Visit Provider Student in an Organized Health Care Education/Training Program
PROC: 0Y6M0ZF Detachment at Right Foot, Partial 5th Ray, Open Approach (ICD-10-PCS; principal; 2023-11-22 12:45)
DX: E11.621 Type 2 diabetes mellitus with foot ulcer (principal); I50.33 Acute on chronic diastolic (congestive) heart failure; M86.171 Other acute osteomyelitis, right ankle and foot; I13.0 Hypertensive heart and chronic kidney disease with heart failure and stage 1 through stage 4 chronic kidney disease, or unspecified chronic kidney disease; L97.412 Non-pressure chronic ulcer of right heel and midfoot with fat layer exposed; L03.115 Cellulitis of right lower limb; E11.22 Type 2 diabetes mellitus with diabetic chronic kidney disease; E11.51 Type 2 diabetes mellitus with diabetic peripheral angiopathy without gangrene; N18.32 Chronic kidney disease, stage 3b; D63.1 Anemia in chronic kidney disease; I48.91 Unspecified atrial fibrillation; L97.514 Non-pressure chronic ulcer of other part of right foot with necrosis of bone; E11.69 Type 2 diabetes mellitus with other specified complication; E11.42 Type 2 diabetes mellitus with diabetic polyneuropathy; Z79.4 Long term (current) use of insulin; E78.5 Hyperlipidemia, unspecified; E87.5 Hyperkalemia; K30 Functional dyspepsia; B95.2 Enterococcus as the cause of diseases classified elsewhere; B96.1 Klebsiella pneumoniae [K. pneumoniae] as the cause of diseases classified elsewhere; B96.5 Pseudomonas (aeruginosa) (mallei) (pseudomallei) as the cause of diseases classified elsewhere; Z79.2 Long term (current) use of antibiotics; Z79.01 Long term (current) use of anticoagulants; Z79.84 Long term (current) use of oral hypoglycemic drugs; Z79.85 Long-term (current) use of injectable non-insulin antidiabetic drugs; Z79.899 Other long term (current) drug therapy; Z87.891 Personal history of nicotine dependence
CPT/HCPCS: 36415; 73620; 73630; 73650; 74018; 76000; 80048; 80202; 82962; 83036; 83605; 83880; 85025; 85610; 85652; 85730; 86140; 86850; 86900; 86901; 87015; 87040; 87070; 87075; 87077; 87102; 87116; 87184; 87186; 87205; 87206; 87640; 88305; 88311; 93005; 93306; 94640; 94668; 97116; 97162; 97166; 97530; 97802; 99284; J7030; J7040; J7050; Q9957; A4216; C8929; J1940; J2405; J7799

== ENCOUNTER 2024-02-02 10:15 | Outpatient (RCR) | payer MEDICARE, OTHER, SELFPAY ==
[2024-01-05 08:59] VITALS: BP 157/70; PULSE 72; RESP 18; TEMP 36.4
--- NOTE | 2024-01-05 13:00 | PCM.WC.HP ---
History of Present Illness Date of Service: 01/05/24 Chief Complaint: Right heel ulceration History of Wound: Patient presents to the wound care center today for continued care of his right heel ulceration. Ulceration started is a abrasion from continued ambulation as he was walking for exercise. He also was noted to have abrasion of his fifth toe on the lateral aspect. Due to peripheral vascular disease ulceration was failing to progress during his previous visits to the wound care center with Dr. Green. Procedure was recommended at that time for debridement however patient did refuse. He did relate her present to the vascular follow-up where radiographs were taken demonstrating acute osteomyelitis of the fifth metatarsal head and it was recommended he go to the ED for further evaluation and surgical procedure. 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 Patient has been following in the office with me and has been healing well. Right heel ulceration has been decreasing in size however it is recommended he return to the wound care center for applications of an advanced wound care product to aid in continued healing. He was agreeable to this and thus was referred to the wound care center. He presents today in good spirits stating he is feeling well. He has continued nonweightbearing status to the right lower extremity as instructed. Denies constitutional symptoms. Denies further complaints. [facility] Medical History (Updated 01/05/24 @ 13:[address] 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 of bone Diabetes Home Medications ?Medication ?Instructions ?Recorded ?Last Taken ?Type apixaban 5 mg tablet (Eliquis) 5 mg PO BID 08/30/23 Unknown History atorvastatin 10 mg tablet 80 mg PO QHS cholesterol 08/30/23 Unknown History calcitriol 0.25 mcg capsule 0.25 mcg PO 08/30/23 Unknown History dapagliflozin propanediol 10 mg 10 mg PO DAILY 08/30/23 Unknown History tablet dulaglutide 0.75 mg/0.5 mL 0.75 mg subcut QWEEK 08/30/23 Unknown History subcutaneous pen injector (Trulicity) ergocalciferol (vitamin D2) 1,250 1,250 mcg PO QWEEK 08/30/23 Unknown History mcg (50,000 unit) capsule gabapentin 300 mg capsule 300 mg PO BID 08/30/23 Unknown History insulin glargine 100 unit/mL (3 40 unit subcut QHS 08/30/23 Unknown History mL) subcutaneous pen (Lantus Solostar U-100 Insulin) insulin glargine-yfgn 100 unit/mL 22 unit subcut 08/30/23 Unknown History (3 mL) subcutaneous pen (Semglee (insulin glargine-yfgn) Pen) insulin lispro 100 unit/mL 20 unit subcut .with meals 08/30/23 Unknown History subcutaneous solution losartan 25 mg tablet 25 mg PO DAILY 08/30/23 Unknown History metoprolol succinate 25 mg 75 mg PO DAILY 08/30/23 Unknown History tablet,extended release 24 hr pen needle, diabetic 31 gauge x 08/30/23 Unknown History 06/17 (BD Ultra-Fine Mini Pen Needle) bumetanide 1 mg tablet 1 mg PO DAILY 11/18/23 Unknown History ciprofloxacin HCl 500 mg tablet 500 mg PO DAILY #7 tabs 11/25/23 Unknown Rx (Cipro) Allergy/AdvReac Type Severity Reaction Status Date / Time No Known Allergies Allergy Verified 01/05/24 09:17 Surgical History (Updated 01/05/24 @ 13:[address] Vega Coyne DPM) Status post incision and drainage H/O heart surgery (~2009) Social History Smoking Status: Never smoker ROS Constitutional Constitutional: Denies anorexia, chills, fatigue or fever(s) Eyes Eyes: Denies blurry vision, change in vision or double vision ENT HEENT: Denies dysphagia, nasal congestion or sore throat Cardiovascular Cardiovascular: Denies chest pain, dyspnea or palpitations Respiratory/Chest Respiratory/Chest: Denies cough, shortness of breath at rest or wheezing Gastrointestinal Gastrointestinal: Denies abdominal pain, constipation, diarrhea, nausea or vomiting Genitourinary Genitourinary: Denies dysuria, hematuria or urinary urgency Musculoskeletal Musculoskeletal: Denies joint pain, joint stiffness or joint swelling Integumentary Integumentary: Denies jaundice, lesions, pruritus or rash Neurologic Neurologic: Denies dizziness, numbness or seizures Psychiatric Psychiatric: Denies anxiety or depression Endocrine Endocrinology: Denies cold intolerance or heat intolerance Hematologic/Lymphatic Hematologic/Lymphatic: Denies easy bleeding or easy bruising Vital Signs Vital Signs Vital Signs: 01/05/24 08:59 Temperature 97.6 F L Temperature Source Temporal Pulse Rate 72 Respiratory Rate 18 Blood Pressure 157/70 H Blood Pressure Mean 99 Blood Pressure Source Monitor Physical Exam Const alert, oriented x3 and no apparent distress General Appearance: cooperative HEENT normocephalic Eyes Eyes Narrative: Wears glasses General Eye: normal appearance of both eyes Neck General: normal visual inspection Lymph Lymphatic: no lymphadenopathy noted and no lymphedema noted Resp normal respiratory effort Cardio regular rate and regular rhythm Extremity normal capillary refill, no calf tenderness and no pedal edema Extremity Narrative: Right lower extremity: Vascular: DP and PT pulses palpable. CFT is less than 4 seconds to the digits. Normal temperature gradient. Hair growth is absent to the digits/foot. Neurologic: Gross sensation intact. Protective sensation is absent to the foot secondary to diabetic peripheral polyneuropathy Musculoskeletal: Muscle strength 5 of 5 age-appropriate. He does have decreased range of motion of the ankle joint dorsiflexion with the knee extended without pain or crepitus. There is full range of motion with the knee flexed. Full range of motion of the STJ and MTJ, decreased range of motion of the first MTPJ without pain or crepitus. Dermatologic: Surgical site of the partial fifth ray amputation is healing well with cicatrix noted and small superficial area to the dermal level where the previous scabbing had peeled away. Right heel ulceration is full-thickness with healthy granular layer. There is some improvement noted with decreasing size. There is no signs of infection noted. Skin no rashes or lesions noted, skin turgor normal and no jaundice Neuro moves all extremities Debridement Note Debridement Note Wound debrided: Right heel Laterality: Right Wound Grade/Stage: Robertson stage I Type of Debridement: Excisional debridement Anesthesia Used: 5% Lidocaine Gel Depth: Down to and including healthy tissue and in the subcutaneous layer Percentage of wound debrided: 100 Instrument Used: 3mm curette and #15 blade Tissue Removed: Fibrous, devitalized subcutaneous, biofilm, slough Severity: Fat Layer Exposed Amount of bleeding with debridement: Mild Bleeding Controlled with: Compression and gauze Patient tolerated procedure: Patient tolerated procedure well Post-Debridement Measurements and Additional Note: Post-Debridement Measurements/Treatment CHAYO - Nurse 1 - General Ulcer Assessment Start: 01/05/24 08:59 Freq: Status: Active Protocol: NAOMI Activity Type Activity Date Activity User E-sign Co-sign Detail Recorded Client Recorded Date Recorded By Document 01/05/24 08:59 DL [id number] 01/05/24 09:14 DL 01/05/24 08:59 WC - Today's Visit Information Type of service Initial Visit Arrival Mode Wheelchair Transfer Assistance Manual Transfer Assist (Other) x1 Patient Identification Verified (Name & Yes ) Patient Requires Transmission-Based No Precautions Finger Stick Blood Sugar(mg/dl) (if not checked indicated): Blood Sugar Stated by Patient Vital Signs Temperature (97.8 F-99.1 F) 97.6 F L Temperature Source Temporal Pulse Rate (60-100) 72 Pulse Location Monitor Respiratory Rate (12-18) 18 Respiratory rate source Observation Blood Pressure (90/60-120/80) 157/70 H Blood Pressure Mean 99 Source Monitor Pain Scale: 0-10 Numeric Is Patient Pain Free? Yes Lower Extremity Assessment/ Foot Assessment/ Toe Nail Assessment Left -Posterior Tibial Palpable No -Dorsalis Pedis Palpable No -Extremity Color Normal -Hair Growth on Legs No -Hair Growth on Toes No -Temperature of Extremity Warm -Capillary Refill Greater than 3 Seconds -Dependent Rubor No -Blanched when Elevated No -Lipodermatosclerosis No -Other Deformity No -Prior Foot Ulcer No -Charcot Joint No -Prior Amputation No -Thick Yes -Discolored Yes -Deformed Yes -Improper Length & Hygeine No Right -Posterior Tibial Palpable No -Dorsalis Pedis Palpable No -Extremity Color Normal -Hair Growth on Legs No -Hair Growth on Toes No -Temperature of Extremity Warm -Capillary Refill Greater than 3 Seconds -Dependent Rubor No -Blanched when Elevated No -Lipodermatosclerosis No -Other Deformity Yes -Prior Foot Ulcer No -Charcot Joint No -Prior Amputation Yes -Thick Yes -Discolored Yes -Deformed No Neuropathy Assessment Feet - Top Side and Bottom <Entered> (a) Communication Assessment Preferred language Hungarian Able to Read Yes Able to Write Yes Communication Tools None Right Hearing Abillity Hard of Hearing Left Hearing Abillity Hard of Hearing Visual Assistive Devices Glasses Teaching Assessment Preferences Verbal,Written Barriers to Learning None Readiness To Learn Good Willingness to Engage in Self Management Med Activies Readiness to Engage in Self Management Med Activities Anxiety Level Calm Cooperation Cooperative Perception Coherent Interest in Health Problem Asks Questions Education Importance Acknowledges Need Smoking Status Never smoker Is Patient Diabetic Yes Functional Assessment Recent Decline in Ability to Perform Denies Any Declines Culture/Adventist/Instructional Technology Instructor Cultural/Adventist Needs that may affect No Treatment Plan Would you allow our hospital counter clerk to No meet you for the purpose of spiritual/ emotional support? Teaching: Wound Center Dressing Your Wound -Person Taught Patient *Welcome to the Wound Center -Person Taught Patient (a) 1 - _ WC - Nurse 1 - General Ulcer Measurement Start: 01/05/24 08:59 Freq: Status: Active Protocol: Activity Type Activity Date Activity User E-sign Co-sign Detail Recorded Client Recorded Date Recorded By Document 01/05/24 08:59 DL [id number] 01/05/24 09:14 DL 01/05/24 08:59 Wound Center Nurse 1 #7 R Heel -Current Size (cm) - Length 0.7 -Current Size (cm) - Width 1.2 -Current Size (cm) - Depth 0.1 -Total Square Cm 0.84 -Photo Taken Yes -Exudate Amt Small -Exudate Type Serosanguineous -Wound Margin Thickened -Granulation Amt Medium (34-66%) -Granulation Quality Pale,[place] -Necrosis Amt Medium (34-66%) -Necrotic Tissue Type Adherent Slough -Structure Exposed N/A -Texture (Shikha-wound Skin Appearance) Scarring -Moisture (Shikha-wound Skin Appearance) Dry/Scaly -Color (Shikha-wound Skin Appearance) No Abnormality -Temperature (Shikha-wound Skin No Abnormality Appearance) (Pt Warm) -Tenderness on Palpation (Shikha-wound No Skin Appearance) -Ulcer Cleansing Soap and Water -Foul Odor after Cleansing No -Anesthetic Used 5% Lidocaine Gel #6 R 5th toe amp site -Current Size (cm) - Length 0.1 -Current Size (cm) - Width 0.1 -Current Size (cm) - Depth 0.1 -Total Square Cm 0.01 -Photo Taken Yes -Classification - Thickness Partial Thickness -Exudate Amt None Present -Wound Margin Thickened -Granulation Amt Medium (34-66%) -Granulation Quality Pale -Necrosis Amt Medium (34-66%) -Necrotic Tissue Type Eschar -Structure Exposed N/A -Texture (Shikha-wound Skin Appearance) Localized Edema ,Scarring -Moisture (Shikha-wound Skin Appearance) No Abnormality, Dry/Scaly -Color (Shikha-wound Skin Appearance) No Abnormality -Temperature (Shikha-wound Skin No Abnormality Appearance) (Pt Warm) -Tenderness on Palpation (Shikha-wound No Skin Appearance) -Ulcer Cleansing Soap and Water -Foul Odor after Cleansing No -Anesthetic Used 5% Lidocaine Gel WC - Nurse 2 - General Ulcer CM Notes Start: 01/05/24 08:59 Freq: Status: Active Protocol: Activity Type Activity Date Activity User E-sign Co-sign Detail Recorded Client Recorded Date Recorded By Document 01/05/24 09:35 [facility] [id number] 01/05/24 09:44 [facility] 01/05/24 09:35 Wound Center Nurse 2 #7 R Heel -Time 09:41 -Correct Patient Yes -Correct Side, Site, Position Yes -Correct Procedure Yes -Procedure Performed Yes -Type of Procedure Debridement -Clinical Debridement Subcutaneous -Tissue Removed Subcutaneous -Post Debridement (cm) - Length 0.9 -Post Debridement (cm) - Width 1.4 -Post Debridement (cm) - Depth 0.1 -Total Square (Post) (cm) 1.26 -Area of Debridement (cm) - Length 0.9 -Area of Debridement (cm) - Width 1.4 -Total Square (Area) (cm) 1.26 -Tunneling No -Undermining/Tunneling No -Circular Undermining No -Wound/Ulcer Outcome Not Healed -Ulcer Cleansing Rinsed/ Irrigated with Saline -Foul Odor after Cleansing No -Bioengineered Tissue No -Bleeding Controlled with Pressure -Treatment Response Procedure Tolerated Well -Debridement - Subq, 1st 20sq cm No #6 R 5th toe amp site -Time 09:37 -Correct Patient Yes -Correct Side, Site, Position Yes -Correct Procedure Yes -Procedure Performed Yes -Type of Procedure Debridement -Clinical Debridement Subcutaneous -Tissue Removed Subcutaneous -Post Debridement (cm) - Length 0.1 -Post Debridement (cm) - Width 0.1 -Post Debridement (cm) - Depth 0.1 -Total Square (Post) (cm) 0.01 -Area of Debridement (cm) - Length 0.1 -Area of Debridement (cm) - Width 0.1 -Total Square (Area) (cm) 0.01 -Tunneling No -Undermining/Tunneling No -Circular Undermining No -Wound/Ulcer Outcome Not Healed -Ulcer Cleansing Rinsed/ Irrigated with Saline -Foul Odor after Cleansing No -Bioengineered Tissue No -Bleeding Controlled with Pressure -Treatment Response Procedure Tolerated Well -Debridement - Subq, 1st 20sq cm Yes Pain Scale: 0-10 Numeric Is Patient Pain Free? Yes - Nurse 3 - General Ulcer D/C NN Start: 01/05/24 08:59 Freq: Status: Active Protocol: Activity Type Activity Date Activity User E-sign Co-sign Detail Recorded Client Recorded Date Recorded By Document 01/05/24 10:01 DL [id number] 01/05/24 10:04 DL 01/05/24 10:01 Wound Care Center Nurse 3 #7 R Heel -Ulcer Cleansing Soap and Water -Foul Odor after Cleansing No -Primary Dressing Applied Promogran Mari Matter -Primary Dressing Covered/Secured with Dry Gauze & Roll Gauze, Secured with Tape -Promogran Mari Matter 1 #6 R 5th toe amp site -Ulcer Cleansing Soap and Water -Foul Odor after Cleansing No -Primary Dressing Applied Promogran Mari Matter -Primary Dressing Covered/Secured with Dry Gauze & Roll Gauze, Secured with Tape -Other Covering itzel -Promogran Mari Matter 1 Treatment Response Procedure Tolerated Well Pain Scale: 0-10 Numeric Is Patient Pain Free? 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 DOS 11/22/2023. POD #44 Amputation site has healed well with cicatrix noted. No signs of infection. Right heel ulceration was debrided as noted in the clinical panel above. Predebridement measurement 0.8 cm x 1.3 cm x 0.1 cm. Postdebridement measurement 0.9 cm x 1.4 cm x 0.1 cm. Mari applied to the ulcerative bed and dressed with dry sterile dressing. He is to change dressing daily. Discussed continued diet for glycemic control with adequate protein intake to aid in wound healing. He is to continue nonweightbearing status to the right lower extremity with the assistance of walker/wheelchair. Will apply for advanced wound care product, EpiFix to apply at next visit. Discussed signs and symptoms of infection with the patient and family today. Discussed if he notices increasing redness around the ulcerative site that moves up the leg, purulent drainage from the wound site, increasing foul odor from the wound site, or if he experiences fever greater than 101 degree accompanied by nausea, vomiting, chills that these are signs of a progressing infection and he should report to the ED for IV antibiotics and further evaluation. He is understanding of this today. Patient's family voices understanding of this as well. The following work up and care recommendations were made: Dressing: Mari and dry sterile dressing. Change dressing daily Wash: Will not get site wet Tissue growth optimization: Mari Offload: Will remain nonweightbearing to the right lower extremity to aid in offloading of the right heel ulceration. Vascular: DP and PT pulses palpable with adequate capillary fill time. Does continue to follow with Dr. Joseph. Edema: No signs of edema Infection: No signs of infection Pain: Patient has diabetic peripheral polyneuropathy and thus insensate. Host factors: DM type II with peripheral polyneuropathy, peripheral vascular disease I answered all the patient's questions. To return to the wound healing center in 2 weeks or call sooner if the patient has any questions or concerns.
--- NOTE | 2024-01-10 11:30 | WC ---
PHOTO RIGHT HEEL 01/05/24
[2024-01-19 10:16] VITALS: BP 146/87; PULSE 114; TEMP 35.9
--- NOTE | 2024-01-19 10:35 | PN.PCM_ITS ---
History of Present Illness Date of Service: 01/19/24 Chief Complaint: Right heel ulceration History of Wound: Patient presents to the wound care center today for continued care of his right heel ulceration. Ulceration started is a abrasion from continued ambulation as he was walking for exercise. He also was noted to have abrasion of his fifth toe on the lateral aspect. Due to peripheral vascular disease ulceration was failing to progress during his previous visits to the wound care center with Dr. Green. Procedure was recommended at that time for debridement however patient did refuse. He did relate her present to the vascular follow-up where radiographs were taken demonstrating acute o steomyelitis of the fifth metatarsal head and it was recommended he go to the ED for further evaluation and surgical procedure. Patient was admitted to [facility] on 11/21/2023 and underwent partial fifth ray amputation of the right foot and debridement of right heel ulceration on 11/22/2023. Patient has been following in the office with me and has been healing well. Right heel ulceration has been decreasing in size however it is recommended he return to the wound care center for applications of an advanced wound care product to aid in continued healing. He was agreeable to this and thus was referred to the wound care center. He presents today in good spirits stating he is feeling well. He has continued nonweightbearing status to the right lower extremity as instructed. Denies constitutional symptoms. Denies further complaints. Subjective Subjective This is a 73-year-old male who presents to the wound care center for continued follow-up of the right heel ulceration. 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 He continues to do well and his amputation site is well-healed. Continues to remain nonweightbearing to the right lower extremity to offload heel ulceration and is changing dressings daily with the assistance of family. States that he feels well overall. Denies constitutional symptoms. Denies further complaints. Objective Data Objective Data Vital Signs: Vital Signs Temp Pulse Resp BP O2 Del Method 96.7 F L 114 H 18 146/87 H Room Air 01/19/24 10:16 01/19/24 10:16 01/05/24 08:59 01/19/24 10:16 01/19/24 10:16 Oxygen Delivery Method Room Air Physical Exam Const alert, oriented x3 and no apparent distress General Appearance: cooperative HEENT normocephalic Eyes Eyes Narrative: Wears glasses General Eye: normal appearance of both eyes Neck General: normal visual inspection Lymph Lymphatic: no lymphadenopathy noted and no lymphedema noted Resp normal respiratory effort Cardio regular rate and regular rhythm Extremity normal capillary refill, no calf tenderness and no pedal edema Extremity Narrative: Right lower extremity: Vascular: DP and PT pulses palpable. CFT is less than 4 seconds to the digits. Normal temperature gradient. Hair growth is absent to the digits/foot. Neurologic: Gross sensation intact. Protective sensation is absent to the foot secondary to diabetic peripheral polyneuropathy Musculoskeletal: Muscle strength 5 of 5 age-appropriate. He does have decreased range of motion of the ankle joint dorsiflexion with the knee extended without pain or crepitus. There is full range of motion with the knee flexed. Full range of motion of the STJ and MTJ, decreased range of motion of the first MTPJ without pain or crepitus. Dermatologic: Surgical site of the partial fifth ray amputation is healed well with cicatrix noted. Right heel ulceration is full-thickness with healthy granular layer. There is some improvement noted with decreasing size. There is no signs of infection noted. Skin no rashes or lesions noted, skin turgor normal and no jaundice Neuro moves all extremities Debridement Note Debridement Note Wound debrided: Right plantar heel Laterality: Right Wound Grade/Stage: Robertson stage I Type of Debridement: Excisional debridement Anesthesia Used: 5% Lidocaine Gel Depth: Down to and including healthy tissue and in the subcutaneous layer Percentage of wound debrided: 100 Instrument Used: 5mm curette Tissue Removed: Fibrous, devitalized subcutaneous, biofilm, slough Severity: Fat Layer Exposed Amount of bleeding with debridement: Mild Bleeding Controlled with: Compression and gauze Patient tolerated procedure: Patient tolerated procedure well Post-Debridement Measurements and Additional Note: Post-Debridement Measurements/Treatment - Nurse 1 - General Ulcer Assessment Start: 01/05/24 08:59 Freq: Status: Active Protocol: NAOMI Activity Type Activity Date Activity User E-sign Co-sign Detail Recorded Client Recorded Date Recorded By Document 01/05/24 08:59 DL [id number] 01/05/24 09:14 DL Document 01/19/24 10:16 DS [id number] 01/19/24 10:30 DS 01/05/24 01/19/24 08:59 10:16 - Today's Visit Information Type of service Initial Visit Follow-up Visit (Physician/MUSICAL STRING MAKER ) Arrival Mode Wheelchair Wheelchair Transfer Assistance Manual Transfer Assist (Other) x1 Patient Identification Verified (Name & Yes ) Patient Requires Transmission-Based No Precautions Safety Precautions Fall Prevention Finger Stick Blood Sugar(mg/dl) (if not checked indicated): Blood Sugar Stated by Patient Vital Signs Temperature (97.8 F-99.1 F) 97.6 F L 96.7 F L Temperature Source Temporal Temporal Pulse Rate (60-100) 72 114 H Pulse Location Monitor Monitor Respiratory Rate (12-18) 18 Respiratory rate source Observation Observation Oxygen Delivery Method Room Air Blood Pressure (90/60-120/80) 157/70 H 146/87 H Blood Pressure Mean (mm Hg) 99 106 Source Monitor Monitor Position Sitting Blood Pressure Location Left Arm History Since Last Visit- (Skip if this is Patient's initial visit) Have you changed medications since your No last visit? Any new allergies or adverse reactions No Had a fall/change in ADL's that may No increase risk of falls Signs or symptoms of abuse and/or No neglect since last visit Have you been in the hospital since your No last visit? Has dressing in place as prescribed Yes Has compression in place as prescribed N/A Has offloadiing in place as prescribed Yes Experienced any changes in pain level or No management Left Footwear Regular Shoe Right Footwear No Footwear Pain Scale: 0-10 Numeric Is Patient Pain Free? Yes Yes Lower Extremity Assessment/ Foot Assessment/ Toe Nail Assessment Left -Posterior Tibial Palpable No -Dorsalis Pedis Palpable No -Extremity Color Normal -Hair Growth on Legs No -Hair Growth on Toes No -Temperature of Extremity Warm -Capillary Refill Greater than 3 Seconds -Dependent Rubor No -Blanched when Elevated No -Lipodermatosclerosis No -Other Deformity No -Prior Foot Ulcer No -Charcot Joint No -Prior Amputation No -Thick Yes -Discolored Yes -Deformed Yes -Improper Length & Hygeine No Right -Posterior Tibial Palpable No -Dorsalis Pedis Palpable No -Extremity Color Normal -Hair Growth on Legs No -Hair Growth on Toes No -Temperature of Extremity Warm -Capillary Refill Greater than 3 Seconds -Dependent Rubor No -Blanched when Elevated No -Lipodermatosclerosis No -Other Deformity Yes -Prior Foot Ulcer No -Charcot Joint No -Prior Amputation Yes -Thick Yes -Discolored Yes -Deformed No Neuropathy Assessment Feet - Top Side and Bottom <Entered> (a) Communication Assessment Preferred language [place] Able to Read Yes Able to Write Yes Communication Tools None Right Hearing Abillity Hard of Hearing Left Hearing Abillity Hard of Hearing Visual Assistive Devices Glasses Teaching Assessment Preferences Verbal,Written Barriers to Learning None Readiness To Learn Good Willingness to Engage in Self Management Med Activies Readiness to Engage in Self Management Med Activities Anxiety Level Calm Cooperation Cooperative Perception Coherent Interest in Health Problem Asks Questions Education Importance Acknowledges Need Smoking Status Never smoker Is Patient Diabetic Yes Functional Assessment Recent Decline in Ability to Perform Denies Any Declines 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 Teaching: Wound Center Dressing Your Wound -Person Taught Patient *Welcome to the Wound Center -Person Taught Patient (a) 1 - _ WC - Nurse 1 - General Ulcer Measurement Start: 01/05/24 08:59 Freq: Status: Active Protocol: Activity Type Activity Date Activity User E-sign Co-sign Detail Recorded Client Recorded Date Recorded By Document 01/05/24 08:59 DL [id number] 01/05/24 09:14 DL Document 01/19/24 10:16 DS [id number] 01/19/24 10:30 DS 01/05/24 01/19/24 08:59 10:16 Wound Center Nurse 1 #7 R Heel -Current Size (cm) - Length 0.7 0.9 -Current Size (cm) - Width 1.2 1.4 -Current Size (cm) - Depth 0.1 0.3 -Total Square Cm 0.84 1.26 -Photo Taken Yes -Tunneling No -Undermining/Tunneling No -Circular Undermining No -Exudate Amt Small -Exudate Type Serosanguineous Sanguineous -Wound Margin Thickened Distinct, Outline Attached -Granulation Amt Medium (34-66%) -Granulation Quality Pale,[place] -Necrosis Amt Medium (34-66%) Large (67-100%) -Necrotic Tissue Type Adherent Slough Adherent Slough -Structure Exposed N/A -Texture (Shikha-wound Skin Appearance) Scarring Assessed -Moisture (Shikha-wound Skin Appearance) Dry/Scaly Assessed -Color (Shikha-wound Skin Appearance) No Abnormality Assessed -Temperature (Shikha-wound Skin No Abnormality No Abnormality Appearance) (Pt Warm) (Pt Warm) -Tenderness on Palpation (Shikha-wound No No Skin Appearance) -Ulcer Cleansing Soap and Water Soap and Water -Foul Odor after Cleansing No -Anesthetic Used 5% Lidocaine 5% Lidocaine Gel Gel #6 R 5th toe amp site -Current Size (cm) - Length 0.1 0.1 -Current Size (cm) - Width 0.1 0.1 -Current Size (cm) - Depth 0.1 0.1 -Total Square Cm 0.01 0.01 -Photo Taken Yes -Classification - Thickness Partial Thickness -Exudate Amt None Present -Wound Margin Thickened -Granulation Amt Medium (34-66%) -Granulation Quality Pale -Necrosis Amt Medium (34-66%) -Necrotic Tissue Type Eschar -Structure Exposed N/A -Texture (Shikha-wound Skin Appearance) Localized Edema Assessed ,Scarring -Moisture (Shikha-wound Skin Appearance) No Abnormality, Assessed Dry/Scaly -Color (Shikha-wound Skin Appearance) No Abnormality Assessed -Temperature (Shikha-wound Skin No Abnormality Appearance) (Pt Warm) -Tenderness on Palpation (Shikha-wound No Skin Appearance) -Ulcer Cleansing Soap and Water Soap and Water -Foul Odor after Cleansing No -Anesthetic Used 5% Lidocaine Gel WC - Nurse 2 - General Ulcer CM Notes Start: 01/05/24 08:59 Freq: Status: Active Protocol: Activity Type Activity Date Activity User E-sign Co-sign Detail Recorded Client Recorded Date Recorded By Document 01/05/24 09:35 [facility] [id number] 01/05/24 09:44 [facility] 01/05/24 09:35 Wound Center Nurse 2 #7 R Heel -Time 09:41 -Correct Patient Yes -Correct Side, Site, Position Yes -Correct Procedure Yes -Procedure Performed Yes -Type of Procedure Debridement -Clinical Debridement Subcutaneous -Tissue Removed Subcutaneous -Post Debridement (cm) - Length 0.9 -Post Debridement (cm) - Width 1.4 -Post Debridement (cm) - Depth 0.1 -Total Square (Post) (cm) 1.26 -Area of Debridement (cm) - Length 0.9 -Area of Debridement (cm) - Width 1.4 -Total Square (Area) (cm) 1.26 -Tunneling No -Undermining/Tunneling No -Circular Undermining No -Wound/Ulcer Outcome Not Healed -Ulcer Cleansing Rinsed/ Irrigated with Saline -Foul Odor after Cleansing No -Bioengineered Tissue No -Bleeding Controlled with Pressure -Treatment Response Procedure Tolerated Well -Debridement - Subq, 1st 20sq cm No #6 R 5th toe amp site -Time 09:37 -Correct Patient Yes -Correct Side, Site, Position Yes -Correct Procedure Yes -Procedure Performed Yes -Type of Procedure Debridement -Clinical Debridement Subcutaneous -Tissue Removed Subcutaneous -Post Debridement (cm) - Length 0.1 -Post Debridement (cm) - Width 0.1 -Post Debridement (cm) - Depth 0.1 -Total Square (Post) (cm) 0.01 -Area of Debridement (cm) - Length 0.1 -Area of Debridement (cm) - Width 0.1 -Total Square (Area) (cm) 0.01 -Tunneling No -Undermining/Tunneling No -Circular Undermining No -Wound/Ulcer Outcome Not Healed -Ulcer Cleansing Rinsed/ Irrigated with Saline -Foul Odor after Cleansing No -Bioengineered Tissue No -Bleeding Controlled with Pressure -Treatment Response Procedure Tolerated Well -Debridement - Subq, 1st 20sq cm Yes Pain Scale: 0-10 Numeric Is Patient Pain Free? Yes - Nurse 3 - General Ulcer D/C NN Start: 01/05/24 08:59 Freq: Status: Active Protocol: Activity Type Activity Date Activity User E-sign Co-sign Detail Recorded Client Recorded Date Recorded By Document 01/05/24 10:01 DL [id number] 01/05/24 10:04 DL 01/05/24 10:01 Wound Care Center Nurse 3 #7 R Heel -Ulcer Cleansing Soap and Water -Foul Odor after Cleansing No -Primary Dressing Applied Promogran Mari Matter -Primary Dressing Covered/Secured with Dry Gauze & Roll Gauze, Secured with Tape -Promogran Mari Matter 1 #6 R 5th toe amp site -Ulcer Cleansing Soap and Water -Foul Odor after Cleansing No -Primary Dressing Applied Promogran Mari Matter -Primary Dressing Covered/Secured with Dry Gauze & Roll Gauze, Secured with Tape -Other Covering itzel -Promogran Mari Matter 1 Treatment Response Procedure Tolerated Well Pain Scale: 0-10 Numeric Is Patient Pain Free? 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 DOS 11/22/2023. POD #58 Amputation site has healed well with cicatrix noted. No signs of infection. Right heel ulceration was debrided as noted in the clinical panel above. Predebridement measurement 0.6 cm x 1.0 cm x 0.1 cm. Postdebridement measurement 0.7 cm x 1.1 cm x 0.1 cm. EpiFix graft #1 applied to the ulcerative bed and dressed with Adaptic touch, and anchored with Steri-Strips. Dry sterile dressing was applied over the site. Was instructed to not get the site wet and utilize cast bag when showering to keep dry. May change outer dressing as needed. Heel ulceration does demonstrate reduction in size versus previous visit. Overall doing well following procedure. Discussed continued diet for glycemic control with adequate protein intake to aid in wound healing. He is to continue nonweightbearing status to the right lower extremity with the assistance of walker/wheelchair. Has been approved for advanced wound care product, EpiFix and will continue applications Discussed signs and symptoms of infection with the patient and family today. Discussed if he notices increasing redness around the ulcerative site that moves up the leg, purulent drainage from the wound site, increasing foul odor from the wound site, or if he experiences fever greater than 101 degree accompanied by nausea, vomiting, chills that these are signs of a progressing infection and he should report to the ED for IV antibiotics and further evaluation. He is understanding of this today. Patient's family voices understanding of this as well. The following work up and care recommendations were made: Dressing: EpiFix, Adaptic touch, Steri-Strips, dry sterile dressing. Change outer dressing as needed. Wash: Will not get site wet Tissue growth optimization: EpiFix Offload: Will remain nonweightbearing to the right lower extremity to aid in offloading of the right heel ulceration. Vascular: DP and PT pulses palpable with adequate capillary fill time. Does continue to follow with Dr. Joseph. Edema: No signs of edema Infection: No signs of infection Pain: Patient has diabetic peripheral polyneuropathy and thus insensate. Host factors: DM type II with peripheral polyneuropathy, peripheral vascular disease I answered all the patient's questions. To return to the wound healing center in 1 week or call sooner if the patient has any questions or concerns.
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
[2024-01-26 10:16] VITALS: BP 156/75; PULSE 71; RESP 18; TEMP 35.9
[2024-02-02 10:39] VITALS: BP 127/66; PULSE 57; RESP 18; TEMP 35.8
--- NOTE | 2024-02-02 11:04 | PCM.WC.PN ---
History of Present Illness Date of Service: 02/02/24 Chief Complaint: Right heel ulceration History of Wound: Patient presents to the wound care center today for continued care of his right heel ulceration. Ulceration started is a abrasion from continued ambulation as he was walking for exercise. He also was noted to have abrasion of his fifth toe on the lateral aspect. Due to peripheral vascular disease ulceration was failing to progress during his previous visits to the wound care center with Dr. Green. Procedure was recommended at that time for debridement however patient did refuse. He did relate her present to the vascular follow-up where radiographs were taken demonstrating acute osteomyelitis of the fifth metatarsal head and it was recommended he go to the ED for further evaluation and surgical procedure. 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 Patient has been following in the office with me and has been healing well. Right heel ulceration has been decreasing in size however it is recommended he return to the wound care center for applications of an advanced wound care product to aid in continued healing. He was agreeable to this and thus was referred to the wound care center. He presents today in good spirits stating he is feeling well. He has continued nonweightbearing status to the right lower extremity as instructed. Denies constitutional symptoms. Denies further complaints. Subjective Subjective This is a 73-year-old male who presents to the wound care center for continued follow-up of the right heel ulceration. 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 He continues to do well and his amputation site remains well-healed. Continues to remain nonweightbearing to the right lower extremity to offload heel ulceration. Has left grafting product in place to the plantar heel. Denies constitutional symptoms. Denies further complaints. Objective Data Objective Data Vital Signs: Vital Signs Temp Pulse Resp BP O2 Del Method 96.4 F L 57 L 18 127/66 H Room Air 02/02/24 10:39 02/02/24 10:39 02/02/24 10:39 02/02/24 10:39 01/19/24 10:16 Oxygen Delivery Method Room Air Physical Exam Const alert, oriented x3 and no apparent distress General Appearance: cooperative HEENT normocephalic Eyes Eyes Narrative: Wears glasses General Eye: normal appearance of both eyes Neck General: normal visual inspection Lymph Lymphatic: no lymphadenopathy noted and no lymphedema noted Resp normal respiratory effort Cardio regular rate and regular rhythm Extremity normal capillary refill, no calf tenderness and no pedal edema Extremity Narrative: Right lower extremity: Vascular: DP and PT pulses palpable. CFT is less than 4 seconds to the digits. Normal temperature gradient. Hair growth is absent to the digits/foot. Neurologic: Gross sensation intact. Protective sensation is absent to the foot secondary to diabetic peripheral polyneuropathy Musculoskeletal: Muscle strength 5 of 5 age-appropriate. He does have decreased range of motion of the ankle joint dorsiflexion with the knee extended without pain or crepitus. There is full range of motion with the knee flexed. Full range of motion of the STJ and MTJ, decreased range of motion of the first MTPJ without pain or crepitus. Dermatologic: Surgical site of the partial fifth ray amputation is healed well with cicatrix noted. Right heel ulceration is full-thickness with healthy granular layer. There is continued improvement noted with decreasing size. There is no signs of infection noted. Skin no rashes or lesions noted, skin turgor normal and no jaundice Neuro moves all extremities Debridement Note Debridement Note Wound debrided: Plantar right heel Wound Grade/Stage: Robertson stage I Type of Debridement: Excisional debridement Anesthesia Used: 5% Lidocaine Gel Depth: Down to and including healthy tissue and in the subcutaneous layer Percentage of wound debrided: 100 Instrument Used: 3mm curette and #15 blade Tissue Removed: Fibrous, devitalized subcutaneous, biofilm, slough Severity: Fat Layer Exposed Amount of bleeding with debridement: Mild Bleeding Controlled with: Compression and gauze Patient tolerated procedure: Patient tolerated procedure well Post-Debridement Measurements and Additional Note: Post-Debridement Measurements/Treatment CHAYO - Nurse 1 - General Ulcer Assessment Start: 01/05/24 08:59 Freq: Status: Active Protocol: NAOMI Activity Type Activity Date Activity User E-sign Co-sign Detail Recorded Client Recorded Date Recorded By Document 01/05/24 08:59 DL [id number] 01/05/24 09:14 DL Document 01/19/24 10:16 DS [id number] 01/19/24 10:30 DS Document 01/26/24 10:16 DL [id number] 01/26/24 10:28 DL Document 02/02/24 10:39 RB [id number] 02/02/24 10:42 RB 01/05/24 01/19/24 01/26/24 08:59 10:16 10:16 - Today's Visit Information Type of service Initial Visit Follow-up Visit Follow-up Visit (Physician/TRANSIT CLERK (Physician/TRANSIT CLERK ) ) Arrival Mode Wheelchair Wheelchair Wheelchair Transfer Assistance Manual Manual Transfer Assist (Other) x1 x1 Patient Identification Verified (Name & Yes Yes ) Patient Requires Transmission-Based No No Precautions Safety Precautions Fall Prevention Finger Stick Blood Sugar(mg/dl) (if not checked indicated): Blood Sugar Stated by Patient Vital Signs Temperature (97.8 F-99.1 F) 97.6 F L 96.7 F L 96.6 F L Temperature Source Temporal Temporal Temporal Pulse Rate (60-100) 72 114 H 71 Pulse Location Monitor Monitor Monitor Respiratory Rate (12-18) 18 18 Respiratory rate source Observation Observation Observation Oxygen Delivery Method Room Air Blood Pressure (90/60-120/80) 157/70 H 146/87 H 156/75 H Blood Pressure Mean (mm Hg) 99 106 102 Source Monitor Monitor Monitor Position Sitting Blood Pressure Location Left Arm History Since Last Visit- (Skip if this is Patient's initial visit) Have you changed medications since your No No last visit? Any new allergies or adverse reactions No No Had a fall/change in ADL's that may No No increase risk of falls Signs or symptoms of abuse and/or No No neglect since last visit Have you been in the hospital since your No No last visit? Has dressing in place as prescribed Yes Yes Has compression in place as prescribed N/A Yes Has offloadiing in place as prescribed Yes Yes Experienced any changes in pain level or No No management Left Footwear Regular Shoe Slipper Right Footwear No Footwear Slipper Pain Scale: 0-10 Numeric Is Patient Pain Free? Yes Yes Yes Lower Extremity Assessment/ Foot Assessment/ Toe Nail Assessment Left -Posterior Tibial Palpable No -Dorsalis Pedis Palpable No -Extremity Color Normal -Hair Growth on Legs No -Hair Growth on Toes No -Temperature of Extremity Warm -Capillary Refill Greater than 3 Seconds -Dependent Rubor No -Blanched when Elevated No -Lipodermatosclerosis No -Other Deformity No -Prior Foot Ulcer No -Charcot Joint No -Prior Amputation No -Thick Yes -Discolored Yes -Deformed Yes -Improper Length & Hygeine No Right -Posterior Tibial Palpable No -Dorsalis Pedis Palpable No -Extremity Color Normal -Hair Growth on Legs No -Hair Growth on Toes No -Temperature of Extremity Warm -Capillary Refill Greater than 3 Seconds -Dependent Rubor No -Blanched when Elevated No -Lipodermatosclerosis No -Other Deformity Yes -Prior Foot Ulcer No -Charcot Joint No -Prior Amputation Yes -Thick Yes -Discolored Yes -Deformed No Neuropathy Assessment Feet - Top Side and Bottom <Entered> (a) Communication Assessment Preferred language Vietnamese Able to Read Yes Able to Write Yes Communication Tools None Right Hearing Abillity Hard of Hearing Left Hearing Abillity Hard of Hearing Visual Assistive Devices Glasses Teaching Assessment Preferences Verbal,Written Barriers to Learning None Readiness To Learn Good Willingness to Engage in Self Management Med Activies Readiness to Engage in Self Management Med Activities Anxiety Level Calm Cooperation Cooperative Perception Coherent Interest in Health Problem Asks Questions Education Importance Acknowledges Need Smoking Status Never smoker Is Patient Diabetic Yes Functional Assessment Recent Decline in Ability to Perform Denies Any Declines Culture/Adventism/Motion Picture Commentator Cultural/Adventism Needs that may affect No Treatment Plan Would you allow our hospital social media marketing manager to No meet you for the purpose of spiritual/ emotional support? Teaching: Wound Center Dressing Your Wound -Person Taught Patient *Welcome to the Wound Center -Person Taught Patient 02/02/24 10:39 WC - Today's Visit Information Type of service Follow-up Visit (Physician/TRANSIT CLERK ) Arrival Mode Wheelchair Transfer Assistance Manual Transfer Assist (Other) Patient Identification Verified (Name & Yes ) Patient Requires Transmission-Based No Precautions Safety Precautions Finger Stick Blood Sugar(mg/dl) (if indicated): Blood Sugar Vital Signs Temperature (97.8 F-99.1 F) 96.4 F L Temperature Source Temporal Pulse Rate (60-100) 57 L Pulse Location Monitor Respiratory Rate (12-18) 18 Respiratory rate source Observation Oxygen Delivery Method Blood Pressure (90/60-120/80) 127/66 H Blood Pressure Mean (mm Hg) 86 Source Monitor Position Semi-Fowlers Blood Pressure Location Left Arm History Since Last Visit- (Skip if this is Patient's initial visit) Have you changed medications since your No last visit? Any new allergies or adverse reactions No Had a fall/change in ADL's that may No increase risk of falls Signs or symptoms of abuse and/or No neglect since last visit Have you been in the hospital since your No last visit? Has dressing in place as prescribed Yes Has compression in place as prescribed Yes Has offloadiing in place as prescribed No Experienced any changes in pain level or No management Left Footwear Right Footwear Pain Scale: 0-10 Numeric Is Patient Pain Free? Yes Lower Extremity Assessment/ Foot Assessment/ Toe Nail Assessment Left -Posterior Tibial Palpable -Dorsalis Pedis Palpable -Extremity Color -Hair Growth on Legs -Hair Growth on Toes -Temperature of Extremity -Capillary Refill -Dependent Rubor -Blanched when Elevated -Lipodermatosclerosis -Other Deformity -Prior Foot Ulcer -Charcot Joint -Prior Amputation -Thick -Discolored -Deformed -Improper Length & Hygeine Right -Posterior Tibial Palpable -Dorsalis Pedis Palpable -Extremity Color -Hair Growth on Legs -Hair Growth on Toes -Temperature of Extremity -Capillary Refill -Dependent Rubor -Blanched when Elevated -Lipodermatosclerosis -Other Deformity -Prior Foot Ulcer -Charcot Joint -Prior Amputation -Thick -Discolored -Deformed Neuropathy Assessment Feet - Top Side and Bottom Communication Assessment Preferred language Able to Read Able to Write Communication Tools Right Hearing Abillity Left Hearing Abillity Visual Assistive Devices Teaching Assessment Preferences Barriers to Learning Readiness To Learn Willingness to Engage in Self Management Activies Readiness to Engage in Self Management Activities Anxiety Level Cooperation Perception Interest in Health Problem Education Importance Smoking Status Is Patient Diabetic Functional Assessment Recent Decline in Ability to Perform Culture/Adventism/Motion Picture Commentator Cultural/Adventism Needs that may affect Treatment Plan Would you allow our hospital social media marketing manager to meet you for the purpose of spiritual/ emotional support? Teaching: Wound Center Dressing Your Wound -Person Taught *Welcome to the Wound Center -Person Taught (a) 1 - _ WC - Nurse 1 - General Ulcer Measurement Start: 01/05/24 08:59 Freq: Status: Active Protocol: Activity Type Activity Date Activity User E-sign Co-sign Detail Recorded Client Recorded Date Recorded By Document 01/05/24 08:59 DL [id number] 01/05/24 09:14 DL Document 01/19/24 10:16 DS [id number] 01/19/24 10:30 DS Document 01/26/24 10:16 DL [id number] 01/26/24 10:28 DL Document 02/02/24 10:39 RB [id number] 02/02/24 10:42 RB 01/05/24 01/19/24 01/26/24 08:59 10:16 10:16 Wound Center Nurse 1 #6 R 5th toe amp site -Current Size (cm) - Length 0.1 0.1 -Current Size (cm) - Width 0.1 0.1 -Current Size (cm) - Depth 0.1 0.1 -Total Square Cm 0.01 0.01 -Photo Taken Yes -Classification - Thickness Partial Thickness -Exudate Amt None Present -Wound Margin Thickened -Granulation Amt Medium (34-66%) -Granulation Quality Pale -Necrosis Amt Medium (34-66%) -Necrotic Tissue Type Eschar -Structure Exposed N/A -Texture (Shikha-wound Skin Appearance) Localized Edema Assessed ,Scarring -Moisture (Shikha-wound Skin Appearance) No Abnormality, Assessed Dry/Scaly -Color (Shikha-wound Skin Appearance) No Abnormality Assessed -Temperature (Shikha-wound Skin No Abnormality Appearance) (Pt Warm) -Tenderness on Palpation (Shikha-wound No Skin Appearance) -Ulcer Cleansing Soap and Water Soap and Water -Foul Odor after Cleansing No -Anesthetic Used 5% Lidocaine Gel #7 R Heel -Combined with other wound -Current Size (cm) - Length 0.7 0.9 0.3 -Current Size (cm) - Width 1.2 1.4 0.4 -Current Size (cm) - Depth 0.1 0.3 0.3 -Total Square Cm 0.84 1.26 0.12 -Photo Taken Yes -Tunneling No -Undermining/Tunneling No -Undermining/Tunneling Starts (O'clock 4 ) -Undermining/Tunneling Ends (O'clock) 7 -Maximum Distance (cm) 0.2 -Circular Undermining No -Exudate Amt Small Medium -Exudate Type Serosanguineous Sanguineous Serosanguineous -Wound Margin Thickened Distinct, Distinct, Outline Outline Attached Attached -Granulation Amt Medium (34-66%) Small (1-33%) -Granulation Quality Pale,Bentley Red -Slough/Fibrin -Necrosis Amt Medium (34-66%) Large (67-100%) Small (1-33%) -Necrotic Tissue Type Adherent Slough Adherent Slough Adherent Slough -Structure Exposed N/A N/A -Texture (Shikha-wound Skin Appearance) Scarring Assessed Callus,Scarring -Moisture (Shikha-wound Skin Appearance) Dry/Scaly Assessed Dry/Scaly -Color (Shikha-wound Skin Appearance) No Abnormality Assessed No Abnormality -Temperature (Shikha-wound Skin No Abnormality No Abnormality No Abnormality Appearance) (Pt Warm) (Pt Warm) (Pt Warm) -Tenderness on Palpation (Shikha-wound No No No Skin Appearance) -Ulcer Cleansing Soap and Water Soap and Water Soap and Water -Foul Odor after Cleansing No No -Anesthetic Used 5% Lidocaine 5% Lidocaine 5% Lidocaine Gel Gel Gel 02/02/24 10:39 Wound Center Nurse 1 #6 R 5th toe amp site -Current Size (cm) - Length -Current Size (cm) - Width -Current Size (cm) - Depth -Total Square Cm -Photo Taken -Classification - Thickness -Exudate Amt -Wound Margin -Granulation Amt -Granulation Quality -Necrosis Amt -Necrotic Tissue Type -Structure Exposed -Texture (Shikha-wound Skin Appearance) -Moisture (Shikha-wound Skin Appearance) -Color (Shikha-wound Skin Appearance) -Temperature (Shikha-wound Skin Appearance) -Tenderness on Palpation (Shikha-wound Skin Appearance) -Ulcer Cleansing -Foul Odor after Cleansing -Anesthetic Used #7 R Heel -Combined with other wound No -Current Size (cm) - Length 0.4 -Current Size (cm) - Width 0.5 -Current Size (cm) - Depth 0.2 -Total Square Cm 0.20 -Photo Taken Yes -Tunneling No -Undermining/Tunneling No -Undermining/Tunneling Starts (O'clock ) -Undermining/Tunneling Ends (O'clock) -Maximum Distance (cm) -Circular Undermining No -Exudate Amt Medium -Exudate Type Serosanguineous -Wound Margin Distinct, Outline Attached -Granulation Amt Medium (34-66%) -Granulation Quality Bentley -Slough/Fibrin Yes -Necrosis Amt Medium (34-66%) -Necrotic Tissue Type Adherent Slough -Structure Exposed N/A -Texture (Shikha-wound Skin Appearance) Assessed,Callus -Moisture (Shikha-wound Skin Appearance) Assessed -Color (Shikha-wound Skin Appearance) Assessed -Temperature (Shikha-wound Skin No Abnormality Appearance) (Pt Warm) -Tenderness on Palpation (Shikha-wound No Skin Appearance) -Ulcer Cleansing Wound Cleanser -Foul Odor after Cleansing No -Anesthetic Used 5% Lidocaine Gel WC - Nurse 2 - General Ulcer CM Notes Start: 01/05/24 08:59 Freq: Status: Active Protocol: Activity Type Activity Date Activity User E-sign Co-sign Detail Recorded Client Recorded Date Recorded By Document 01/05/24 09:35 BMF [id number] 01/05/24 09:44 BMF Document 01/19/24 10:38 BMF [id number] 01/19/24 10:47 BMF Document 01/26/24 10:37 BMF [id number] 01/26/24 10:41 BMF Document 02/02/24 10:51 [facility] [id number] 02/02/24 10:57 BMF 01/05/24 01/19/24 01/26/24 09:35 10:38 10:37 Wound Center Nurse 2 #6 R 5th toe amp site -Time 09:37 -Correct Patient Yes -Correct Side, Site, Position Yes -Correct Procedure Yes -Procedure Performed Yes -Type of Procedure Debridement -Clinical Debridement Subcutaneous -Tissue Removed Subcutaneous -Post Debridement (cm) - Length 0.1 0 -Post Debridement (cm) - Width 0.1 0 -Post Debridement (cm) - Depth 0.1 0 -Total Square (Post) (cm) 0.01 0 -Area of Debridement (cm) - Length 0.1 0 -Area of Debridement (cm) - Width 0.1 0 -Total Square (Area) (cm) 0.01 0 -Tunneling No -Undermining/Tunneling No -Circular Undermining No -Wound/Ulcer Outcome Not Healed Healed- Epithelialized -Ulcer Cleansing Rinsed/ Irrigated with Saline -Foul Odor after Cleansing No -Bioengineered Tissue No -Bleeding Controlled with Pressure -Treatment Response Procedure Tolerated Well -Debridement - Subq, 1st 20sq cm Yes #7 R Heel -Time 09:41 10:40 10:37 -Correct Patient Yes Yes Yes -Correct Side, Site, Position Yes Yes Yes -Correct Procedure Yes Yes Yes -Procedure Performed Yes Yes Yes -Type of Procedure Debridement Debridement Debridement -Clinical Debridement Subcutaneous Subcutaneous Subcutaneous -Tissue Removed Subcutaneous Subcutaneous Subcutaneous -Post Debridement (cm) - Length 0.9 0.7 0.4 -Post Debridement (cm) - Width 1.4 1.1 0.6 -Post Debridement (cm) - Depth 0.1 0.1 0.1 -Total Square (Post) (cm) 1.26 0.77 0.24 -Area of Debridement (cm) - Length 0.9 0.7 0.4 -Area of Debridement (cm) - Width 1.4 1.1 0.6 -Total Square (Area) (cm) 1.26 0.77 0.24 -Tunneling No No No -Undermining/Tunneling No No No -Circular Undermining No No No -Wound/Ulcer Outcome Not Healed Not Healed Not Healed -Ulcer Cleansing Rinsed/ Rinsed/ Rinsed/ Irrigated with Irrigated with Irrigated with Saline Saline Saline -Foul Odor after Cleansing No No No -Bioengineered Tissue No No No -Type of Bioengineered Tissue Epifix 18mm Disc -Expiration Date 08/02/28 08/02/28 -Product Lot Number [id number] -Percent Used 100 100 -Lot number of Saline Used [id number] -Bleeding Controlled with Pressure Pressure Pressure -Treatment Response Procedure Procedure Procedure Tolerated Well Tolerated Well Tolerated Well -Debridement - Subq, 1st 20sq cm No No No -Apply Skin Sub - 1st 25 sq cm - Feet 1 1 -Epifix 18mm Disc 3 3 Pain Scale: 0-10 Numeric Is Patient Pain Free? Yes Yes Yes 02/02/24 10:51 Wound Center Nurse 2 #6 R 5th toe amp site -Time -Correct Patient -Correct Side, Site, Position -Correct Procedure -Procedure Performed -Type of Procedure -Clinical Debridement -Tissue Removed -Post Debridement (cm) - Length -Post Debridement (cm) - Width -Post Debridement (cm) - Depth -Total Square (Post) (cm) -Area of Debridement (cm) - Length -Area of Debridement (cm) - Width -Total Square (Area) (cm) -Tunneling -Undermining/Tunneling -Circular Undermining -Wound/Ulcer Outcome -Ulcer Cleansing -Foul Odor after Cleansing -Bioengineered Tissue -Bleeding Controlled with -Treatment Response -Debridement - Subq, 1st 20sq cm #7 R Heel -Time 10:51 -Correct Patient Yes -Correct Side, Site, Position Yes -Correct Procedure Yes -Procedure Performed Yes -Type of Procedure Debridement -Clinical Debridement Subcutaneous -Tissue Removed Subcutaneous -Post Debridement (cm) - Length 0.5 -Post Debridement (cm) - Width 0.9 -Post Debridement (cm) - Depth 0.1 -Total Square (Post) (cm) 0.45 -Area of Debridement (cm) - Length 0.5 -Area of Debridement (cm) - Width 0.9 -Total Square (Area) (cm) 0.45 -Tunneling No -Undermining/Tunneling No -Circular Undermining No -Wound/Ulcer Outcome Not Healed -Ulcer Cleansing Rinsed/ Irrigated with Saline -Foul Odor after Cleansing No -Bioengineered Tissue No -Type of Bioengineered Tissue Epifix 18mm Disc -Expiration Date 09/02/28 -Product Lot Number [id number] -Percent Used 100 -Lot number of Saline Used [id number] -Bleeding Controlled with Pressure -Treatment Response Procedure Tolerated Well -Debridement - Subq, 1st 20sq cm No -Apply Skin Sub - 1st 25 sq cm - Feet 1 -Epifix 18mm Disc 3 Pain Scale: 0-10 Numeric Is Patient Pain Free? Yes WC - Nurse 3 - General Ulcer D/C NN Start: 01/05/24 08:59 Freq: Status: Active Protocol: Activity Type Activity Date Activity User E-sign Co-sign Detail Recorded Client Recorded Date Recorded By Document 01/05/24 10:01 DL [id number] 01/05/24 10:04 DL Document 01/19/24 10:59 DL [id number] 01/19/24 11:00 DL Document 01/26/24 10:59 DL [id number] 01/26/24 11:00 DL 01/05/24 01/19/24 01/26/24 10:01 10:59 10:59 Wound Care Center Nurse 3 #6 R 5th toe amp site -Ulcer Cleansing Soap and Water -Foul Odor after Cleansing No -Primary Dressing Applied Promogran Mari Matter -Primary Dressing Covered/Secured with Dry Gauze & Roll Gauze, Secured with Tape -Other Covering farideh -Promogran Mari Matter 1 #7 R Heel -Ulcer Cleansing Soap and Water -Foul Odor after Cleansing No No -Primary Dressing Applied Promogran Mari Matter -Other Dressing Epimesh Epimesh -Primary Dressing Covered/Secured with Dry Gauze & Dry Gauze & Dry Gauze & Roll Gauze, Roll Gauze, Roll Gauze, Secured with Secured with Secured with Tape Tape Tape -Other Covering farideh FARIDEH -Promogran Mari Matter 1 Treatment Response Procedure Procedure Procedure Tolerated Well Tolerated Well Tolerated Well Pain Scale: 0-10 Numeric Is Patient Pain Free? 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 DOS 11/22/2023. POD #72 Amputation site remains well healed with cicatrix noted. No signs of infection. Right heel ulceration was debrided as noted in the clinical panel above. Predebridement measurement 0.4 cm x 0.5 cm x 0.1 cm. Postdebridement measurement 0.5 cm x 0.9 cm x 0.1 cm. EpiFix graft #3 applied to the ulcerative bed and dressed with Adaptic touch, and anchored with Steri-Strips. Dry sterile dressing was applied over the site. Was instructed to not get the site wet and utilize cast bag when showering to keep dry. May change outer dressing as needed. Heel ulceration does demonstrate slight increase in size versus previous visit. Overall doing well. Discussed continued diet for glycemic control with adequate protein intake to aid in wound healing. He is to continue nonweightbearing status to the right lower extremity with the assistance of walker/wheelchair. Has been approved for advanced wound care product, EpiFix and will continue applications Discussed signs and symptoms of infection with the patient and family today. Discussed if he notices increasing redness around the ulcerative site that moves up the leg, purulent drainage from the wound site, increasing foul odor from the wound site, or if he experiences fever greater than 101 degree accompanied by nausea, vomiting, chills that these are signs of a progressing infection and he should report to the ED for IV antibiotics and further evaluation. He is understanding of this today. Patient's family voices understanding of this as well. The following work up and care recommendations were made: Dressing: EpiFix, Adaptic touch, Steri-Strips, dry sterile dressing. Change outer dressing as needed. Wash: Will not get site wet Tissue growth optimization: EpiFix Right heel Offload: Will remain nonweightbearing to the right lower extremity to aid in offloading of the right heel ulceration. Vascular: DP and PT pulses palpable with adequate capillary fill time. Does continue to follow with Dr. Joseph. Edema: No signs of edema Infection: No signs of infection Pain: Patient has diabetic peripheral polyneuropathy and thus insensate. Host factors: DM type II with peripheral polyneuropathy, peripheral vascular disease I answered all the patient's questions. To return to the wound healing center in 1 week or call sooner if the patient has any questions or concerns.
--- NOTE | 2024-02-06 11:53 | WC ---
PHOTO 02/02/24
--- NOTE | 2024-02-06 11:54 | WC ---
PHOTO RIGHT HEEL
== END 2024-02-02 23:59 | disposition home or self-care (01) ==
LOC: WC 10:15
PROVIDERS: PCP Family Medicine; Referring Provider Student in an Organized Health Care Education/Training Program; Visit Provider Student in an Organized Health Care Education/Training Program
DX: E11.621 Type 2 diabetes mellitus with foot ulcer (principal); L97.412 Non-pressure chronic ulcer of right heel and midfoot with fat layer exposed; Z89.431 Acquired absence of right foot; E11.51 Type 2 diabetes mellitus with diabetic peripheral angiopathy without gangrene; E11.42 Type 2 diabetes mellitus with diabetic polyneuropathy; Z79.4 Long term (current) use of insulin; Z79.85 Long-term (current) use of injectable non-insulin antidiabetic drugs; Z79.84 Long term (current) use of oral hypoglycemic drugs; Z79.01 Long term (current) use of anticoagulants
CPT/HCPCS: 11042; 15275; 99213; Q4186; G0463

== ENCOUNTER 2024-02-23 10:30 | Outpatient (RCR) | payer MEDICARE, OTHER, SELFPAY ==
[2024-02-03 00:33] VITALS: BP 127/66; PULSE 57; RESP 18; TEMP 35.8
[2024-02-09 10:04] VITALS: BP 128/87; PULSE 92; RESP 18; TEMP 36.1
--- NOTE | 2024-02-09 13:23 | PN.PCM_ITS ---
History of Present Illness Date of Service: 02/09/24 Chief Complaint: Right heel ulceration History of Wound: Patient presents to the wound care center today for continued care of his right heel ulceration. Ulceration started is a abrasion from continued ambulation as he was walking for exercise. He also was noted to have abrasion of his fifth toe on the lateral aspect. Due to peripheral vascular disease ulceration was failing to progress during his previous visits to the wound care center with Dr. Green. Procedure was recommended at that time for debridement however patient did refuse. He did relate her present to the vascular follow-up where radiographs were taken demonstrating acute o steomyelitis of the fifth metatarsal head and it was recommended he go to the ED for further evaluation and surgical procedure. Patient was admitted to [facility] on 11/21/2023 and underwent partial fifth ray amputation of the right foot and debridement of right heel ulceration on 11/22/2023. Patient has been following in the office with me and has been healing well. Right heel ulceration has been decreasing in size however it is recommended he return to the wound care center for applications of an advanced wound care product to aid in continued healing. He was agreeable to this and thus was referred to the wound care center. He presents today in good spirits stating he is feeling well. He has continued nonweightbearing status to the right lower extremity as instructed. Denies constitutional symptoms. Denies further complaints. Subjective Subjective This is a 73-year-old male who presents to the wound care center for continued follow-up of the right heel ulceration. 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 He continues to do well and his amputation site remains well-healed. Continues to remain nonweightbearing to the right lower extremity to offload heel ulceration. Has left grafting product in place to the plantar heel. States blood sugars in good standing. Denies constitutional symptoms. Denies further complaints. Objective Data Objective Data Vital Signs: Vital Signs Temp Pulse Resp BP O2 Del Method 97.0 F L 92 18 128/87 H Room Air 02/09/24 10:04 02/09/24 10:04 02/09/24 10:04 02/09/24 10:02/09/24 10:04 Oxygen Delivery Method Room Air Physical Exam Const alert, oriented x3 and no apparent distress General Appearance: cooperative HEENT normocephalic Eyes General Eye: normal appearance of both eyes Neck General: normal visual inspection Lymph Lymphatic: no lymphadenopathy noted and no lymphedema noted Resp normal respiratory effort Cardio regular rate and regular rhythm Extremity no calf tenderness and no pedal edema Extremity Narrative: Right lower extremity: Vascular: DP and PT pulses palpable. CFT is less than 4 seconds to the digits. Normal temperature gradient. Hair growth is absent to the digits/foot. Neurologic: Gross sensation intact. Protective sensation is absent to the foot secondary to diabetic peripheral polyneuropathy Musculoskeletal: Muscle strength 5 of 5 age-appropriate. He does have decreased range of motion of the ankle joint dorsiflexion with the knee extended without pain or crepitus. There is full range of motion with the knee flexed. Full range of motion of the STJ and MTJ, decreased range of motion of the first MTPJ without pain or crepitus. Dermatologic: Surgical site of the partial fifth ray amputation is healed well with cicatrix noted. Right heel ulceration is full-thickness with healthy granular layer. There is continued improvement noted with decreasing size and is nearing closure. There is no signs of infection noted. Skin no rashes or lesions noted, skin turgor normal and no jaundice Neuro moves all extremities Debridement Note Debridement Note Wound debrided: Right plantar lateral heel Laterality: Right Wound Grade/Stage: Robertson stage I Type of Debridement: Excisional debridement Anesthesia Used: 5% Lidocaine Gel Depth: Down to and including healthy tissue and in the subcutaneous layer Percentage of wound debrided: 100 Instrument Used: 5mm curette Tissue Removed: Fibrous, devitalized subcutaneous, biofilm, slough Severity: Fat Layer Exposed Amount of bleeding with debridement: Mild Bleeding Controlled with: Compression and gauze Patient tolerated procedure: Patient tolerated procedure well Post-Debridement Measurements and Additional Note: Post-Debridement Measurements/Treatment - Nurse 1 - General Ulcer Assessment Start: 02/09/24 10:04 Freq: Status: Active Protocol: NAOMI Activity Type Activity Date Activity User E-sign Co-sign Detail Recorded Client Recorded Date Recorded By Document 02/09/24 10:04 [email or web address] [id number] 02/09/24 10:14 JETHRO 02/09/24 10:04 CHAYO - Today's Visit Information Type of service Follow-up Visit (Physician/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 PRODUCT DEVELOPMENT MANAGER ) Arrival Mode Wheelchair Accompanied by FAMILY Patient Identification Verified (Name & Yes ) Vital Signs Temperature (97.8 F-99.1 F) 97.0 F L Temperature Source Temporal Pulse Rate (60-100) 92 Pulse Location Monitor Respiratory Rate (12-18) 18 Respiratory rate source Observation Oxygen Delivery Method Room Air Blood Pressure (90/60-120/80) 128/87 H Blood Pressure Mean (mm Hg) 100 Source Monitor Position Semi-Fowlers Blood Pressure Location Left Arm History Since Last Visit- (Skip if this is Patient's initial visit) Have you changed medications since your No last visit? Any new allergies or adverse reactions No Had a fall/change in ADL's that may No increase risk of falls Signs or symptoms of abuse and/or No neglect since last visit Have you been in the hospital since your No last visit? Has dressing in place as prescribed Yes Has compression in place as prescribed Yes Has offloadiing in place as prescribed Yes Experienced any changes in pain level or No management Left Footwear Regular Shoe Right Footwear Surgical Shoe with pressure relief insole Pain Scale: 0-10 Numeric Is Patient Pain Free? Yes CHAYO - Nurse 1 - General Ulcer Measurement Start: 02/09/24 10:04 Freq: Status: Active Protocol: Activity Type Activity Date Activity User E-sign Co-sign Detail Recorded Client Recorded Date Recorded By Document 02/09/24 10:04 JETHRO [id number] 02/09/24 10:14 KW 02/09/24 10:04 Wound Center Nurse 1 #7 R Heel -Current Size (cm) - Length 0.1 -Current Size (cm) - Width 0.1 -Current Size (cm) - Depth 0.1 -Total Square Cm 0.01 -Exudate Amt None Present -Necrosis Amt Large (67-100%) -Necrotic Tissue Type Eschar -Texture (Shikha-wound Skin Appearance) Assessed -Moisture (Shikha-wound Skin Appearance) Assessed -Color (Shikha-wound Skin Appearance) Assessed -Temperature (Shikha-wound Skin No Abnormality Appearance) (Pt Warm) -Tenderness on Palpation (Shikha-wound No Skin Appearance) -Ulcer Cleansing Soap and Water -Foul Odor after Cleansing No -Anesthetic Used 5% Lidocaine Gel -Wound Comment(s) SCABBED CHAYO - Nurse 2 - General Ulcer CM Notes Start: 02/09/24 10:04 Freq: Status: Active Protocol: Activity Type Activity Date Activity User E-sign Co-sign Detail Recorded Client Recorded Date Recorded By Document 02/09/24 10:27 [facility] [id number] 02/09/24 10:39 [facility] 02/09/24 10:27 Wound Center Nurse 2 -Time 10:28 -Correct Patient Yes -Correct Side, Site, Position Yes -Correct Procedure Yes -Procedure Performed Yes -Type of Procedure Debridement -Clinical Debridement Subcutaneous -Tissue Removed Subcutaneous -Post Debridement (cm) - Length 0.4 -Post Debridement (cm) - Width 0.5 -Post Debridement (cm) - Depth 0.1 -Total Square (Post) (cm) 0.20 -Area of Debridement (cm) - Length 0.4 -Area of Debridement (cm) - Width 0.5 -Total Square (Area) (cm) 0.20 -Tunneling No -Undermining/Tunneling No -Circular Undermining No -Wound/Ulcer Outcome Not Healed -Ulcer Cleansing Rinsed/ Irrigated with Saline -Foul Odor after Cleansing No -Bioengineered Tissue No -Expiration Date 09/02/28 -Product Lot Number [id number] -Percent Used 100 -Lot number of Saline Used [id number] -Bleeding Controlled with Pressure -Treatment Response Procedure Tolerated Well -Debridement - Subq, 1st 20sq cm No -Apply Skin Sub - 1st 25 sq cm - Feet 1 -Epifix 18mm Disc 3 Pain Scale: 0-10 Numeric Is Patient Pain Free? Yes - Nurse 3 - General Ulcer D/C NN Start: 02/09/24 10:04 Freq: Status: Active Protocol: Activity Type Activity Date Activity User E-sign Co-sign Detail Recorded Client Recorded Date Recorded By Document 02/09/24 10:48 [id number] 02/09/24 10:50 DL 02/09/24 10:48 Wound Care Center Nurse 3 #7 R Heel -Foul Odor after Cleansing No -Primary Dressing Covered/Secured with Dry Gauze & Roll Gauze, Secured with Tape -Other Covering Padding Treatment Response Procedure Tolerated Well Pain Scale: 0-10 Numeric Is Patient Pain Free? 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 DOS 11/22/2023. POD #79 Amputation site remains well healed with cicatrix noted. No signs of infection. Right heel ulceration was debrided as noted in the clinical panel above. Predebridement measurement 0.3 cm x 0.4 cm x 0.1 cm. Postdebridement measurement 0.4 cm x 0.5 cm x 0.1 cm. EpiFix graft #4 applied to the ulcerative bed and dressed with Adaptic touch, and anchored with Steri-Strips. Dry sterile dressing was applied over the site. Was instructed to not get the site wet and utilize cast bag when showering to keep dry. May change outer dressing as needed. Heel ulceration does demonstrate decrease in size versus previous visit. Overall doing well and nearing closure. Discussed continued diet for glycemic control with adequate protein intake to aid in wound healing. He is to continue nonweightbearing status to the right lower extremity with the assistance of walker/wheelchair. Has been approved for advanced wound care product, EpiFix and will continue applications Discussed signs and symptoms of infection with the patient and family today. Discussed if he notices increasing redness around the ulcerative site that moves up the leg, purulent drainage from the wound site, increasing foul odor from the wound site, or if he experiences fever greater than 101 degree accompanied by nausea, vomiting, chills that these are signs of a progressing infection and he should report to the ED for IV antibiotics and further evaluation. He is understanding of this today. Patient's family voices understanding of this as well. The following work up and care recommendations were made: Dressing: EpiFix, Adaptic touch, Steri-Strips, dry sterile dressing. Change outer dressing as needed. Wash: Will not get site wet Tissue growth optimization: EpiFix Right heel Offload: Will remain nonweightbearing to the right lower extremity to aid in o ffloading of the right heel ulceration. Vascular: DP and PT pulses palpable with adequate capillary fill time. Does continue to follow with Dr. Joseph. Edema: No signs of edema Infection: No signs of infection Pain: Patient has diabetic peripheral polyneuropathy and thus insensate. Host factors: DM type II with peripheral polyneuropathy, peripheral vascular disease I answered all the patient's questions. To return to the wound healing center in 1 week or call sooner if the patient has any questions or concerns.
[2024-02-16 10:28] VITALS: BP 141/65; PULSE 75; RESP 18; TEMP 35.9
--- NOTE | 2024-02-16 12:18 | PCM.WC.PN ---
History of Present Illness Date of Service: 02/16/24 Chief Complaint: Right heel ulceration History of Wound: Patient presents to the wound care center today for continued care of his right heel ulceration. Ulceration started is a abrasion from continued ambulation as he was walking for exercise. He also was noted to have abrasion of his fifth toe on the lateral aspect. Due to peripheral vascular disease ulceration was failing to progress during his previous visits to the wound care center with Dr. Green. Procedure was recommended at that time for debridement however patient did refuse. He did relate her present to the vascular follow-up where radiographs were taken demonstrating acute osteomyelitis of the fifth metatarsal head and it was recommended he go to the ED for further evaluation and surgical procedure. Patient was admitted to [facility] on 11/21/2023 and underwent partial fifth ray amputation of the right foot and debridement of right heel ulceration on 11/22/2023. Patient has been following in the office with me and has been healing well. Right heel ulceration has been decreasing in size however it is recommended he return to the wound care center for applications of an advanced wound care product to aid in continued healing. He was agreeable to this and thus was referred to the wound care center. He presents today in good spirits stating he is feeling well. He has continued nonweightbearing status to the right lower extremity as instructed. Denies constitutional symptoms. Denies further complaints. Subjective Subjective This is a 73-year-old male who presents to the wound care center for continued follow-up of the right heel ulceration. 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 He continues to do well and his amputation site remains well-healed. Continues to remain nonweightbearing to the right lower extremity to offload heel ulceration. Has left grafting product in place to the plantar heel. Family notes good improvement with ulceration nearing closure. States blood sugars in good standing. Denies constitutional symptoms. Denies further complaints. Objective Data Objective Data Vital Signs: Vital Signs Temp Pulse Resp BP O2 Del Method 96.7 F L 75 18 141/65 H Room Air 02/16/24 10:28 02/16/24 10:28 02/16/24 10:28 02/16/24 10:28 02/09/24 10:04 Oxygen Delivery Method Room Air Physical Exam Const alert, oriented x3 and no apparent distress General Appearance: cooperative HEENT normocephalic Eyes General Eye: normal appearance of both eyes Neck General: normal visual inspection Lymph Lymphatic: no lymphadenopathy noted and no lymphedema noted Resp normal respiratory effort Cardio regular rate and regular rhythm Extremity no calf tenderness and no pedal edema Extremity Narrative: Right lower extremity: Vascular: DP and PT pulses palpable. CFT is less than 4 seconds to the digits. Normal temperature gradient. Hair growth is absent to the digits/foot. Neurologic: Gross sensation intact. Protective sensation is absent to the foot secondary to diabetic peripheral polyneuropathy Musculoskeletal: Muscle strength 5 of 5 age-appropriate. He does have decreased range of motion of the ankle joint dorsiflexion with the knee extended without pain or crepitus. There is full range of motion with the knee flexed. Full range of motion of the STJ and MTJ, decreased range of motion of the first MTPJ without pain or crepitus. Dermatologic: Surgical site of the partial fifth ray amputation is healed well with cicatrix noted. Right heel ulceration is full-thickness with healthy granular layer. There is continued improvement noted with decreasing size and is nearing closure. There is no signs of infection noted. Skin no rashes or lesions noted, skin turgor normal and no jaundice Neuro moves all extremities Debridement Note Debridement Note Wound debrided: Plantar lateral right heel Laterality: Right Wound Grade/Stage: Robertson stage I Type of Debridement: Excisional debridement Anesthesia Used: 5% Lidocaine Gel Depth: Down to and including healthy tissue and in the subcutaneous layer Percentage of wound debrided: 100 Instrument Used: #15 blade and - (1 mm curette) Tissue Removed: Fibrous, devitalized subcutaneous, biofilm, slough Severity: Fat Layer Exposed Amount of bleeding with debridement: Mild Bleeding Controlled with: Compression and gauze Patient tolerated procedure: Patient tolerated procedure well Post-Debridement Measurements and Additional Note: Post-Debridement Measurements/Treatment WC - Nurse 1 - General Ulcer Assessment Start: 02/09/24 10:04 Freq: Status: Active Protocol: NAOMI Activity Type Activity Date Activity User E-sign Co-sign Detail Recorded Client Recorded Date Recorded By Document 02/09/24 10:04 KW [id number] 02/09/24 10:14 KW Document 02/16/24 10:28 DL [id number] 02/16/24 10:35 DL 02/09/24 02/16/24 10:04 10:28 - Today's Visit Information Type of service Follow-up Visit Follow-up Visit (Physician/SERVICE TRANSFORMER REPAIR SUPERVISOR (Physician/SERVICE TRANSFORMER REPAIR SUPERVISOR ) ) Arrival Mode Wheelchair Ambulatory, Wheelchair Transfer Assistance None Accompanied by FAMILY Patient Identification Verified (Name & Yes Yes ) Patient Requires Transmission-Based No Precautions Vital Signs Temperature (97.8 F-99.1 F) 97.0 F L 96.7 F L Temperature Source Temporal Temporal Pulse Rate (60-100) 92 75 Pulse Location Monitor Monitor Respiratory Rate (12-18) 18 18 Respiratory rate source Observation Observation Oxygen Delivery Method Room Air Blood Pressure (90/60-120/80) 128/87 H 141/65 H Blood Pressure Mean (mm Hg) 100 90 Source Monitor Monitor Position Semi-Fowlers Blood Pressure Location Left Arm History Since Last Visit- (Skip if this is Patient's initial visit) Have you changed medications since your No No last visit? Any new allergies or adverse reactions No No Had a fall/change in ADL's that may No No increase risk of falls Signs or symptoms of abuse and/or No No neglect since last visit Have you been in the hospital since your No No last visit? Has dressing in place as prescribed Yes Yes Has compression in place as prescribed Yes Yes Has offloadiing in place as prescribed Yes Yes Experienced any changes in pain level or No No management Left Footwear Regular Shoe Right Footwear Surgical Shoe Surgical Shoe with pressure with pressure relief insole relief insole Pain Scale: 0-10 Numeric Is Patient Pain Free? Yes Yes - Nurse 1 - General Ulcer Measurement Start: 02/09/24 10:04 Freq: Status: Active Protocol: Activity Type Activity Date Activity User E-sign Co-sign Detail Recorded Client Recorded Date Recorded By Document 02/09/24 10:04 KW [id number] 02/09/24 10:14 KW Document 02/16/24 10:28 DL [id number] 02/16/24 10:35 DL 02/09/24 02/16/24 10:04 10:28 Wound Center Nurse 1 #7 R Heel -Current Size (cm) - Length 0.1 0.1 -Current Size (cm) - Width 0.1 0.1 -Current Size (cm) - Depth 0.1 0.1 -Total Square Cm 0.01 0.01 -Photo Taken Yes -Exudate Amt None Present None Present -Wound Margin Indistinct, Non -Visible -Granulation Amt Small (1-33%) -Granulation Quality Pale -Necrosis Amt Large (67-100%) None Present (0 %) -Necrotic Tissue Type Eschar -Structure Exposed N/A -Texture (Shikha-wound Skin Appearance) Assessed Callus -Moisture (Shikha-wound Skin Appearance) Assessed Maceration -Color (Shikha-wound Skin Appearance) Assessed No Abnormality -Temperature (Shikha-wound Skin No Abnormality No Abnormality Appearance) (Pt Warm) (Pt Warm) -Tenderness on Palpation (Shikha-wound No No Skin Appearance) -Ulcer Cleansing Soap and Water Soap and Water -Foul Odor after Cleansing No No -Anesthetic Used 5% Lidocaine 5% Lidocaine Gel Gel -Wound Comment(s) SCABBED WC - Nurse 2 - General Ulcer CM Notes Start: 02/09/24 10:04 Freq: Status: Active Protocol: Activity Type Activity Date Activity User E-sign Co-sign Detail Recorded Client Recorded Date Recorded By Document 02/09/24 10:27 [facility] [id number] 02/09/24 10:39 [facility] Document 02/16/24 10:42 [facility] [id number] 02/16/24 10:50 [facility] 02/09/24 02/16/24 10:27 10:42 Wound Center Nurse 2 #7 R Heel -Time 10:28 10:42 -Correct Patient Yes Yes -Correct Side, Site, Position Yes Yes -Correct Procedure Yes Yes -Procedure Performed Yes Yes -Type of Procedure Debridement Debridement -Clinical Debridement Subcutaneous Subcutaneous -Tissue Removed Subcutaneous Subcutaneous -Post Debridement (cm) - Length 0.4 0.3 -Post Debridement (cm) - Width 0.5 0.6 -Post Debridement (cm) - Depth 0.1 0.1 -Total Square (Post) (cm) 0.20 0.18 -Area of Debridement (cm) - Length 0.4 0.3 -Area of Debridement (cm) - Width 0.5 0.6 -Total Square (Area) (cm) 0.20 0.18 -Tunneling No No -Undermining/Tunneling No No -Circular Undermining No No -Wound/Ulcer Outcome Not Healed Not Healed -Ulcer Cleansing Rinsed/ Rinsed/ Irrigated with Irrigated with Saline Saline -Foul Odor after Cleansing No No -Bioengineered Tissue No No -Type of Bioengineered Tissue Epifix 18mm Disc -Expiration Date 09/02/28 09/02/28 -Product Lot Number [id number] -Percent Used 100 100 -Lot number of Saline Used [id number] -Bleeding Controlled with Pressure Pressure -Treatment Response Procedure Procedure Tolerated Well Tolerated Well -Debridement - Subq, 1st 20sq cm No No -Apply Skin Sub - 1st 25 sq cm - Feet 1 1 -Epifix 18mm Disc 3 3 Pain Scale: 0-10 Numeric Is Patient Pain Free? Yes Yes - Nurse 3 - General Ulcer D/C NN Start: 02/09/24 10:04 Freq: Status: Active Protocol: Activity Type Activity Date Activity User E-sign Co-sign Detail Recorded Client Recorded Date Recorded By Document 02/09/24 10:48 DL [id number] 02/09/24 10:50 DL Document 02/16/24 11:05 DL [id number] 02/16/24 11:06 DL 02/09/24 02/16/24 10:48 11:05 Wound Care Center Nurse 3 #7 R Heel -Foul Odor after Cleansing No No -Other Dressing Epifix -Primary Dressing Covered/Secured with Dry Gauze & Dry Gauze & Roll Gauze, Roll Gauze, Secured with Secured with Tape Tape -Other Covering Padding Treatment Response Procedure Procedure Tolerated Well Tolerated Well Pain Scale: 0-10 Numeric Is Patient Pain Free? 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 DOS 11/22/2023. POD #88 Amputation site remains well healed with cicatrix noted. No signs of infection. Right heel ulceration was debrided as noted in the clinical panel above. Predebridement measurement 0.2 cm x 0.5 cm x 0.1 cm. Postdebridement measurement 0.3 cm x 0.6 cm x 0.1 cm. EpiFix graft #5 applied to the ulcerative bed and dressed with Adaptic touch, and anchored with Steri-Strips. Dry sterile dressing was applied over the site. Was instructed to not get the site wet and utilize cast bag when showering to keep dry. May change outer dressing as needed. Heel ulceration demonstrates decrease in size versus previous visit. Overall doing well and continues nearing closure. Discussed continued diet for glycemic control with adequate protein intake to aid in wound healing. He is to continue nonweightbearing status to the right lower extremity with the assistance of walker/wheelchair. Has been approved for advanced wound care product, EpiFix and will continue applications Discussed signs and symptoms of infection with the patient and family today. Discussed if he notices increasing redness around the ulcerative site that moves up the leg, purulent drainage from the wound site, increasing foul odor from the wound site, or if he experiences fever greater than 101 degree accompanied by nausea, vomiting, chills that these are signs of a progressing infection and he should report to the ED for IV antibiotics and further evaluation. He is understanding of this today. Patient's family voices understanding of this as well. The following work up and care recommendations were made: Dressing: EpiFix, Adaptic touch, Steri-Strips, dry sterile dressing. Change outer dressing as needed. Wash: Will not get site wet Tissue growth optimization: EpiFix Right heel Offload: Will remain nonweightbearing to the right lower extremity to aid in offloading of the right heel ulceration. Vascular: DP and PT pulses palpable with adequate capillary fill time. Does continue to follow with Dr. Joseph. Edema: No signs of edema Infection: No signs of infection Pain: Patient has diabetic peripheral polyneuropathy and thus insensate. Host factors: DM type II with peripheral polyneuropathy, peripheral vascular disease I answered all the patient's questions. To return to the wound healing center in 1 week or call sooner if the patient has any questions or concerns.
--- NOTE | 2024-02-23 10:11 | PN.PCM_ITS ---
History of Present Illness Date of Service: 02/23/24 Chief Complaint: Right heel ulceration History of Wound: Patient presents to the wound care center today for continued care of his right heel ulceration. Ulceration started is a abrasion from continued ambulation as he was walking for exercise. He also was noted to have abrasion of his fifth toe on the lateral aspect. Due to peripheral vascular disease ulceration was failing to progress during his previous visits to the wound care center with Dr. Green. Procedure was recommended at that time for debridement however patient did refuse. He did relate her present to the vascular follow-up where radiographs were taken demonstrating acute o steomyelitis of the fifth metatarsal head and it was recommended he go to the ED for further evaluation and surgical procedure. Patient was admitted to [facility] on 11/21/2023 and underwent partial fifth ray amputation of the right foot and debridement of right heel ulceration on 11/22/2023. Patient has been following in the office with me and has been healing well. Right heel ulceration has been decreasing in size however it is recommended he return to the wound care center for applications of an advanced wound care product to aid in continued healing. He was agreeable to this and thus was referred to the wound care center. He presents today in good spirits stating he is feeling well. He has continued nonweightbearing status to the right lower extremity as instructed. Denies constitutional symptoms. Denies further complaints. Subjective Subjective This is a 73-year-old male who presents to the wound care center for continued follow-up of the right heel ulceration. 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 He continues to do well and his amputation site remains well-healed. Continues to remain nonweightbearing to the right lower extremity to offload heel ulceration. Has left grafting product in place to the plantar heel. He is looking forward to family coming in for Thanksgiving next week. States blood sugars in good standing. Denies constitutional symptoms. Denies further complaints. Objective Data Objective Data Vital Signs: Vital Signs Temp Pulse Resp BP O2 Del Method 96.7 F L 75 18 141/65 H Room Air 02/16/24 10:28 02/16/24 10:28 02/16/24 10:28 02/16/24 10:28 02/09/24 10:04 Oxygen Delivery Method Room Air Physical Exam Const alert, oriented x3 and no apparent distress General Appearance: cooperative HEENT normocephalic Eyes General Eye: normal appearance of both eyes Neck General: normal visual inspection Lymph Lymphatic: no lymphadenopathy noted and no lymphedema noted Resp normal respiratory effort Cardio regular rate and regular rhythm Extremity no calf tenderness and no pedal edema Extremity Narrative: Right lower extremity: Vascular: DP and PT pulses palpable. CFT is less than 4 seconds to the digits. Normal temperature gradient. Hair growth is absent to the digits/foot. Neurologic: Gross sensation intact. Protective sensation is absent to the foot secondary to diabetic peripheral polyneuropathy Musculoskeletal: Muscle strength 5 of 5 age-appropriate. He does have decreased range of motion of the ankle joint dorsiflexion with the knee extended without pain or crepitus. There is full range of motion with the knee flexed. Full range of motion of the STJ and MTJ, decreased range of motion of the first MTPJ without pain or crepitus. Dermatologic: Surgical site of the partial fifth ray amputation remains healed with cicatrix noted. Right heel ulceration is full-thickness with healthy granular layer. There is continued improvement noted with decreasing size and is almost closed today. There is no signs of infection noted. Skin no rashes or lesions noted, skin turgor normal and no jaundice Neuro moves all extremities Debridement Note Debridement Note No debridement was completed: No debridement was completed today Post-Debridement Measurements and Additional Note: Post-Debridement Measurements/Treatment - Nurse 1 - General Ulcer Assessment Start: 02/09/24 10:04 Freq: Status: Active Protocol: WC.LOWEX Activity Type Activity Date Activity User E-sign Co-sign Detail Recorded Client Recorded Date Recorded By Document 02/09/24 10:04 KW [id number] 02/09/24 10:14 KW Document 02/16/24 10:28 DL [id number] 02/16/24 10:35 DL 02/09/24 02/16/24 10:04 10:28 - Today's Visit Information Type of service Follow-up Visit Follow-up Visit (Physician/DIE ATTACHING MACHINE TENDER (Physician/DIE ATTACHING MACHINE TENDER ) ) Arrival Mode Wheelchair Ambulatory, Wheelchair Transfer Assistance None Accompanied by FAMILY Patient Identification Verified (Name & Yes Yes ) Patient Requires Transmission-Based No Precautions Vital Signs Temperature (97.8 F-99.1 F) 97.0 F L 96.7 F L Temperature Source Temporal Temporal Pulse Rate (60-100) 92 75 Pulse Location Monitor Monitor Respiratory Rate (12-18) 18 18 Respiratory rate source Observation Observation Oxygen Delivery Method Room Air Blood Pressure (90/60-120/80) 128/87 H 141/65 H Blood Pressure Mean (mm Hg) 100 90 Source Monitor Monitor Position Semi-Fowlers Blood Pressure Location Left Arm History Since Last Visit- (Skip if this is Patient's initial visit) Have you changed medications since your No No last visit? Any new allergies or adverse reactions No No Had a fall/change in ADL's that may No No increase risk of falls Signs or symptoms of abuse and/or No No neglect since last visit Have you been in the hospital since your No No last visit? Has dressing in place as prescribed Yes Yes Has compression in place as prescribed Yes Yes Has offloadiing in place as prescribed Yes Yes Experienced any changes in pain level or No No management Left Footwear Regular Shoe Right Footwear Surgical Shoe Surgical Shoe with pressure with pressure relief insole relief insole Pain Scale: 0-10 Numeric Is Patient Pain Free? Yes Yes WC - Nurse 1 - General Ulcer Measurement Start: 02/09/24 10:04 Freq: Status: Active Protocol: Activity Type Activity Date Activity User E-sign Co-sign Detail Recorded Client Recorded Date Recorded By Document 02/09/24 10:04 KW [id number] 02/09/24 10:14 KW Document 02/16/24 10:28 DL [id number] 02/16/24 10:35 DL 02/09/24 02/16/24 10:04 10:28 Wound Center Nurse 1 #7 R Heel -Current Size (cm) - Length 0.1 0.1 -Current Size (cm) - Width 0.1 0.1 -Current Size (cm) - Depth 0.1 0.1 -Total Square Cm 0.01 0.01 -Photo Taken Yes -Exudate Amt None Present None Present -Wound Margin Indistinct, Non -Visible -Granulation Amt Small (1-33%) -Granulation Quality Pale -Necrosis Amt Large (67-100%) None Present (0 %) -Necrotic Tissue Type Eschar -Structure Exposed N/A -Texture (Shikha-wound Skin Appearance) Assessed Callus -Moisture (Shikha-wound Skin Appearance) Assessed Maceration -Color (Shikha-wound Skin Appearance) Assessed No Abnormality -Temperature (Shikha-wound Skin No Abnormality No Abnormality Appearance) (Pt Warm) (Pt Warm) -Tenderness on Palpation (Shikha-wound No No Skin Appearance) -Ulcer Cleansing Soap and Water Soap and Water -Foul Odor after Cleansing No No -Anesthetic Used 5% Lidocaine 5% Lidocaine Gel Gel -Wound Comment(s) SCABBED WC - Nurse 2 - General Ulcer CM Notes Start: 02/09/24 10:04 Freq: Status: Active Protocol: Activity Type Activity Date Activity User E-sign Co-sign Detail Recorded Client Recorded Date Recorded By Document 02/09/24 10:27 [facility] [id number] 02/09/24 10:39 [facility] Document 02/16/24 10:42 [facility] [id number] 02/16/24 10:50 [facility] 02/09/24 02/16/24 10:27 10:42 Wound Center Nurse 2 #7 R Heel -Time 10:28 10:42 -Correct Patient Yes Yes -Correct Side, Site, Position Yes Yes -Correct Procedure Yes Yes -Procedure Performed Yes Yes -Type of Procedure Debridement Debridement -Clinical Debridement Subcutaneous Subcutaneous -Tissue Removed Subcutaneous Subcutaneous -Post Debridement (cm) - Length 0.4 0.3 -Post Debridement (cm) - Width 0.5 0.6 -Post Debridement (cm) - Depth 0.1 0.1 -Total Square (Post) (cm) 0.20 0.18 -Area of Debridement (cm) - Length 0.4 0.3 -Area of Debridement (cm) - Width 0.5 0.6 -Total Square (Area) (cm) 0.20 0.18 -Tunneling No No -Undermining/Tunneling No No -Circular Undermining No No -Wound/Ulcer Outcome Not Healed Not Healed -Ulcer Cleansing Rinsed/ Rinsed/ Irrigated with Irrigated with Saline Saline -Foul Odor after Cleansing No No -Bioengineered Tissue No No -Type of Bioengineered Tissue Epifix 18mm Disc -Expiration Date 09/02/28 09/02/28 -Product Lot Number [id number] -Percent Used 100 100 -Lot number of Saline Used [id number] -Bleeding Controlled with Pressure Pressure -Treatment Response Procedure Procedure Tolerated Well Tolerated Well -Debridement - Subq, 1st 20sq cm No No -Apply Skin Sub - 1st 25 sq cm - Feet 1 1 -Epifix 18mm Disc 3 3 Pain Scale: 0-10 Numeric Is Patient Pain Free? Yes Yes - Nurse 3 - General Ulcer D/C NN Start: 02/09/24 10:04 Freq: Status: Active Protocol: Activity Type Activity Date Activity User E-sign Co-sign Detail Recorded Client Recorded Date Recorded By Document 02/09/24 10:48 DL [id number] 02/09/24 10:50 DL Document 02/16/24 11:05 DL [id number] 02/16/24 11:06 DL 02/09/24 02/16/24 10:48 11:05 Wound Care Center Nurse 3 #7 R Heel -Foul Odor after Cleansing No No -Other Dressing Epifix -Primary Dressing Covered/Secured with Dry Gauze & Dry Gauze & Roll Gauze, Roll Gauze, Secured with Secured with Tape Tape -Other Covering Padding Treatment Response Procedure Procedure Tolerated Well Tolerated Well Pain Scale: 0-10 Numeric Is Patient Pain Free? 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 DOS 11/22/2023. POD #95 He is just over 3 months out from surgery Amputation site remains well healed with cicatrix noted. No signs of infection. Right heel ulceration did not undergo debridement as noted in the clinical panel above. Predebridement measurement 0.1 cm x 0.1 cm x 0.1 cm. Postdebridement measurement 0.1 cm x 0.1 cm x 0.1 cm. EpiFix graft #5 applied to the ulcerative bed last visit (02/16/24). Will refrain from application as there is epithelializing skin over the ulcer site. Overall healing well. Protective dressing placed over the ulcer site and he will change dressing daily to pad and protect friable skin. Heel ulceration demonstrates decrease in size versus previous visit. Overall doing well and continues almost closed. Discussed continued diet for glycemic control with adequate protein intake to aid in wound healing. At this time he is permitted to begin protective weightbearing to the right foot in surgical shoe. Will continue protective weightbearing for next 2 weeks with likely transition to diabetic shoe gear at his next visit. Has been approved for advanced wound care product, EpiFix and will continue applications pending status. Discussed signs and symptoms of infection with the patient and family today. Discussed if he notices increasing redness around the ulcerative site that moves up the leg, purulent drainage from the wound site, increasing foul odor from the wound site, or if he experiences fever greater than 101 degree accompanied by nausea, vomiting, chills that these are signs of a progressing infection and he should report to the ED for IV antibiotics and further evaluation. He is understanding of this today. Patient's family voices understanding of this as well. The following work up and care recommendations were made: Dressing: EpiFix, Adaptic touch, Steri-Strips, dry sterile dressing. Change outer dressing as needed. Wash: Will not get site wet Tissue growth optimization: EpiFix Right heel Offload: Will remain nonweightbearing to the right lower extremity to aid in offloading of the right heel ulceration. Vascular: DP and PT pulses palpable with adequate capillary fill time. Does continue to follow with Dr. Joseph. Edema: No signs of edema Infection: No signs of infection Pain: Patient has diabetic peripheral polyneuropathy and thus insensate. Host factors: DM type II with peripheral polyneuropathy, peripheral vascular disease I answered all the patient's questions. To return to the wound healing center in 2 weeks or call sooner if the patient has any questions or concerns.
[2024-02-23 10:24] VITALS: BP 152/75; PULSE 69; RESP 18; TEMP 35.8
--- NOTE | 2024-02-24 08:57 | WC ---
PHOTO 02/23/24 RIGHT HEEL
== END 2024-03-03 23:59 | disposition home or self-care (01) ==
LOC: WC 10:30
PROVIDERS: PCP Family Medicine; Referring Provider Student in an Organized Health Care Education/Training Program; Visit Provider Student in an Organized Health Care Education/Training Program
DX: L97.412 Non-pressure chronic ulcer of right heel and midfoot with fat layer exposed (principal); Z89.431 Acquired absence of right foot; E11.42 Type 2 diabetes mellitus with diabetic polyneuropathy; I73.89 Other specified peripheral vascular diseases
CPT/HCPCS: 15275; 99213; Q4186; G0463

== ENCOUNTER 2024-03-15 10:45 | Outpatient (RCR) | payer MEDICARE, OTHER, SELFPAY ==
[2024-03-04 00:22] VITALS: BP 127/66; PULSE 57; RESP 18; TEMP 35.8
[2024-03-08 10:21] VITALS: BP 148/63; PULSE 76; RESP 18; TEMP 36.3
--- NOTE | 2024-03-08 13:01 | PCM.WC.PN ---
History of Present Illness Date of Service: 03/08/24 Chief Complaint: Right heel ulceration History of Wound: Patient presents to the wound care center today for continued care of his right heel ulceration. Ulceration started is a abrasion from continued ambulation as he was walking for exercise. He also was noted to have abrasion of his fifth toe on the lateral aspect. Due to peripheral vascular disease ulceration was failing to progress during his previous visits to the wound care center with Dr. Green. Procedure was recommended at that time for debridement however patient did refuse. He did relate her present to the vascular follow-up where radiographs were taken demonstrating acute osteomyelitis of the fifth metatarsal head and it was recommended he go to the ED for further evaluation and surgical procedure. Patient was admitted to [facility] on 11/21/2023 and underwent partial fifth ray amputation of the right foot and debridement of right heel ulceration on 11/22/2023. Patient has been following in the office with me and has been healing well. Right heel ulceration has been decreasing in size however it is recommended he return to the wound care center for applications of an advanced wound care product to aid in continued healing. He was agreeable to this and thus was referred to the wound care center. He presents today in good spirits stating he is feeling well. He has continued nonweightbearing status to the right lower extremity as instructed. Denies constitutional symptoms. Denies further complaints. Subjective Subjective This is a 73-year-old male who presents to the wound care center for continued follow-up of the right heel ulceration. 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 He continues to do well and his amputation site remains well-healed. Has returned to shoe gear and is doing well. He continues to pad and protect the right heel skin is still friable. States blood sugars in good standing. Denies constitutional symptoms. Denies further complaints. Objective Data Objective Data Vital Signs: Vital Signs Temp Pulse Resp BP O2 Del Method 97.4 F L 76 18 148/63 H Room Air 03/08/24 10:21 03/08/24 10:21 03/08/24 10:21 03/08/24 10:21 03/08/24 10:21 Oxygen Delivery Method Room Air Physical Exam Const alert, oriented x3 and no apparent distress General Appearance: cooperative HEENT normocephalic Eyes General Eye: normal appearance of both eyes Neck General: normal visual inspection Lymph Lymphatic: no lymphadenopathy noted and no lymphedema noted Resp normal respiratory effort Cardio regular rate and regular rhythm Extremity Extremity Narrative: Right lower extremity: Vascular: DP and PT pulses palpable. CFT is less than 4 seconds to the digits. Normal temperature gradient. Hair growth is absent to the digits/foot. Neurologic: Gross sensation intact. Protective sensation is absent to the foot secondary to diabetic peripheral polyneuropathy Musculoskeletal: Muscle strength 5 of 5 age-appropriate. He does have decreased range of motion of the ankle joint dorsiflexion with the knee extended without pain or crepitus. There is full range of motion with the knee flexed. Full range of motion of the STJ and MTJ, decreased range of motion of the first MTPJ without pain or crepitus. Dermatologic: Surgical site of the partial fifth ray amputation remains healed with cicatrix noted. Right heel ulceration demonstrates epithelialized skin to ulcerative site. Skin is still friable. No signs of infection noted. Skin no rashes or lesions noted and skin turgor normal Neuro moves all extremities Debridement Note Debridement Note No debridement was completed: No debridement was completed today Post-Debridement Measurements and Additional Note: Post-Debridement Measurements/Treatment - Nurse 1 - General Ulcer Assessment Start: 03/08/24 10:21 Freq: Status: Active Protocol: NAOMI Activity Type Activity Date Activity User E-sign Co-sign Detail Recorded Client Recorded Date Recorded By Document 03/08/24 10:21 ELVIRA [id number] 03/08/24 10:23 DS 03/08/24 10:21 - Today's Visit Information Type of service Follow-up Visit (Physician/[employer] OPERATOR ) Arrival Mode Ambulatory Transfer Assistance Manual Patient Identification Verified (Name & Yes ) Patient Requires Transmission-Based No Precautions Safety Precautions Fall Prevention Vital Signs Temperature (97.8 F-99.1 F) 97.4 F L Temperature Source Temporal Pulse Rate (60-100) 76 Pulse Location Monitor Respiratory Rate (12-18) 18 Respiratory rate source Observation Oxygen Delivery Method Room Air Blood Pressure (90/60-120/80) 148/63 H Blood Pressure Mean (mm Hg) 91 Source Monitor Position Sitting Blood Pressure Location Right Arm History Since Last Visit- (Skip if this is Patient's initial visit) Have you changed medications since your No last visit? Any new allergies or adverse reactions No Had a fall/change in ADL's that may No increase risk of falls Signs or symptoms of abuse and/or No neglect since last visit Have you been in the hospital since your No last visit? Has dressing in place as prescribed Yes Has compression in place as prescribed Yes Has offloadiing in place as prescribed Yes Experienced any changes in pain level or No management Left Footwear Regular Shoe Right Footwear Surgical Shoe with pressure relief insole Pain Scale: 0-10 Numeric Is Patient Pain Free? Yes WC - Nurse 1 - General Ulcer Measurement Start: 03/08/24 10:21 Freq: Status: Active Protocol: Activity Type Activity Date Activity User E-sign Co-sign Detail Recorded Client Recorded Date Recorded By Document 03/08/24 10:23 DS [id number] 03/08/24 10:30 DS 03/08/24 10:23 Wound Center Nurse 1 #7 R Heel -Combined with other wound No -Current Size (cm) - Length 0.6 -Current Size (cm) - Width 1.0 -Current Size (cm) - Depth 0.1 -Total Square Cm 0.60 -Photo Taken No -Tunneling No -Undermining/Tunneling No -Circular Undermining No -Exudate Amt None Present -Wound Margin Distinct, Outline Attached -Granulation Amt Small (1-33%) -Granulation Quality [place] -Necrosis Amt Medium (34-66%) -Necrotic Tissue Type Adherent Slough -Texture (Shikha-wound Skin Appearance) Assessed -Moisture (Shikha-wound Skin Appearance) Assessed -Color (Shikha-wound Skin Appearance) Assessed -Temperature (Shikha-wound Skin No Abnormality Appearance) (Pt Warm) -Ulcer Cleansing Soap and Water -Foul Odor after Cleansing No -Anesthetic Used 5% Lidocaine Gel WC - Nurse 2 - General Ulcer CM Notes Start: 03/08/24 10:21 Freq: Status: Active Protocol: Activity Type Activity Date Activity User E-sign Co-sign Detail Recorded Client Recorded Date Recorded By Document 03/08/24 10:44 BM [id number] 03/08/24 10:48 BMF 03/08/24 10:44 Wound Center Nurse 2 -Time 10:44 -Post Debridement (cm) - Length 0.1 -Post Debridement (cm) - Width 0.1 -Post Debridement (cm) - Depth 0.1 -Total Square (Post) (cm) 0.01 -Area of Debridement (cm) - Length 0.1 -Area of Debridement (cm) - Width 0.1 -Total Square (Area) (cm) 0.01 -Wound/Ulcer Outcome Not Healed -Bleeding Controlled with NA Pain Scale: 0-10 Numeric Is Patient Pain Free? Yes WC - Nurse 3 - General Ulcer D/C NN Start: 03/08/24 10:21 Freq: Status: Active Protocol: Activity Type Activity Date Activity User E-sign Co-sign Detail Recorded Client Recorded Date Recorded By Document 03/08/24 11:00 DS [id number] 03/08/24 11:07 DS 03/08/24 11:00 Wound Care Center Nurse 3 #7 R Heel -Primary Dressing Applied Mepilex Border -Mepilex Border 1 Right -Tubular Bandage Single Layer -Size of Tubigrip Used Size D -Size D ($) 1 Left -Tubular Bandage Single Layer -Size of Tubigrip Used Size D -Size D ($) 1 Pain Scale: 0-10 Numeric Is Patient Pain Free? 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 DOS 11/22/2023. POD #109 He is just over 3 months out from surgery Amputation site remains well healed with cicatrix noted. No signs of infection. Right heel ulceration did not undergo debridement as noted in the clinical panel above. Predebridement measurement 0.1 cm x 0.1 cm x 0.1 cm. Postdebridement measurement 0.1 cm x 0.1 cm x 0.1 cm. There is newly epithelialized skin overlying the site however skin is still friable. EpiFix graft #5 applied to the ulcerative bed (02/16/24). Will refrain from application as there is epithelializing skin over the ulcer site. Overall healing well. Protective dressing placed over the ulcer site and he will change dressing daily to pad and protect friable skin. Heel ulceration demonstrates decrease in size versus previous visit. Overall doing well and continues almost closed. Discussed continued diet for glycemic control with adequate protein intake to aid in wound healing. At this time he is permitted to continue protective weightbearing to the right foot in surgical shoe. Will continue protective weightbearing for next week with likely transition to diabetic shoe gear at his next visit. Has been approved for advanced wound care product, EpiFix and will continue applications pending status. Discussed signs and symptoms of infection with the patient and family today. Discussed if he notices increasing redness around the ulcerative site that moves up the leg, purulent drainage from the wound site, increasing foul odor from the wound site, or if he experiences fever greater than 101 degree accompanied by nausea, vomiting, chills that these are signs of a progressing infection and he should report to the ED for IV antibiotics and further evaluation. He is understanding of this today. Patient's family voices understanding of this as well. The following work up and care recommendations were made: Dressing: EpiFix, Adaptic touch, Steri-Strips, dry sterile dressing. Change outer dressing as needed. Wash: Will not get site wet Tissue growth optimization: EpiFix Right heel Offload: Will remain nonweightbearing to the right lower extremity to aid in offloading of the right heel ulceration. Vascular: DP and PT pulses palpable with adequate capillary fill time. Does continue to follow with Dr. Joseph. Edema: No signs of edema Infection: No signs of infection Pain: Patient has diabetic peripheral polyneuropathy and thus insensate. Host factors: DM type II with peripheral polyneuropathy, peripheral vascular disease Prognosis is good at this time and he is healing well. I answered all the patient's questions. To return to the wound healing center in 1 week or call sooner if the patient has any questions or concerns.
[2024-03-15 10:13] VITALS: BP 151/74; PULSE 79; RESP 18; TEMP 36.1
--- NOTE | 2024-03-15 12:21 | PN.PCM_ITS ---
History of Present Illness Chief Complaint: Right heel ulceration History of Wound: Patient presents to the wound care center today for continued care of his right heel ulceration. Ulceration started is a abrasion from continued ambulation as he was walking for exercise. He also was noted to have abrasion of his fifth toe on the lateral aspect. Due to peripheral vascular disease ulceration was failing to progress during his previous visits to the wound care center with Dr. Green. Procedure was recommended at that time for debridement however patient did refuse. He did relate her present to the vascular follow-up where radiographs were taken demonstrating acute osteomyelitis of the fifth metatarsal head and it was recommended he go to the ED for further evaluation and surgical procedure. Patient was admitted to [facility] on 11/21/2023 and underwent partial fifth ray amputation of the right foot and debridement of right heel ulceration on 11/22/2023. Patient has been following in the office with me and has been healing well. Right heel ulceration has been decreasing in size however it is recommended he return to the wound care center for applications of an advanced wound care product to aid in continued healing. He was agreeable to this and thus was referred to the wound care center. He presents today in good spirits stating he is feeling well. He has continued nonweightbearing status to the right lower extremity as instructed. Denies constitutional symptoms. Denies further complaints. Subjective Subjective This is a 73-year-old male who presents to the wound care center for continued follow-up of the right heel ulceration. 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 He continues to do well and his amputation site remains well-healed. Has returned to shoe gear and is doing well. He continues to pad and protect the right heel and believes site has healed. States blood sugars in good standing. Denies constitutional symptoms. Denies further complaints. Objective Data Objective Data Vital Signs: Vital Signs Temp Pulse Resp BP O2 Del Method 96.9 F L 79 18 151/74 H Room Air 03/15/24 10:13 03/15/24 10:13 03/15/24 10:13 03/15/24 10:13 03/15/24 10:13 Oxygen Delivery Method Room Air Physical Exam Const alert, oriented x3 and no apparent distress General Appearance: cooperative HEENT normocephalic Eyes General Eye: normal appearance of both eyes Neck General: normal visual inspection Lymph Lymphatic: no lymphadenopathy noted and no lymphedema noted Resp normal respiratory effort Cardio regular rate and regular rhythm Extremity Extremity Narrative: Right lower extremity: Vascular: DP and PT pulses palpable. CFT is less than 4 seconds to the digits. Normal temperature gradient. Hair growth is absent to the digits/foot. Neurologic: Gross sensation intact. Protective sensation is absent to the foot secondary to diabetic peripheral polyneuropathy Musculoskeletal: Muscle strength 5 of 5 age-appropriate. He does have decreased range of motion of the ankle joint dorsiflexion with the knee extended without pain or crepitus. There is full range of motion with the knee flexed. Full range of motion of the STJ and MTJ, decreased range of motion of the first MTPJ without pain or crepitus. Dermatologic: Surgical site of the partial fifth ray amputation remains healed with cicatrix noted. Right heel ulceration demonstrates epithelialized skin to ulcerative site. Skin is still friable. No signs of infection noted. Skin no rashes or lesions noted and skin turgor normal Neuro moves all extremities Debridement Note Debridement Note No debridement was completed: No debridement was completed today Post-Debridement Measurements and Additional Note: Post-Debridement Measurements/Treatment - Nurse 1 - General Ulcer Assessment Start: 03/08/24 10:21 Freq: Status: Active Protocol: NAOMI Activity Type Activity Date Activity User E-sign Co-sign Detail Recorded Client Recorded Date Recorded By Document 03/08/24 10:21 DS [id number] 03/08/24 10:23 DS Document 03/15/24 10:13 JETHRO [id number] 03/15/24 10:21 JETHRO 03/08/24 03/15/24 10:21 10:13 - Today's Visit Information Type of service Follow-up Visit Follow-up Visit (Physician/SENIOR RESEARCH FELLOW (Physician/SENIOR RESEARCH FELLOW ) ) Arrival Mode Ambulatory Ambulatory Transfer Assistance Manual Patient Identification Verified (Name & Yes Yes ) Patient Requires Transmission-Based No Precautions Safety Precautions Fall Prevention Vital Signs Temperature (97.8 F-99.1 F) 97.4 F L 96.9 F L Temperature Source Temporal Temporal Pulse Rate (60-100) 76 79 Pulse Location Monitor Monitor Respiratory Rate (12-18) 18 18 Respiratory rate source Observation Observation Oxygen Delivery Method Room Air Room Air Blood Pressure (90/60-120/80) 148/63 H 151/74 H Blood Pressure Mean (mm Hg) 91 99 Source Monitor Monitor Position Sitting Sitting Blood Pressure Location Right Arm Left Arm History Since Last Visit- (Skip if this is Patient's initial visit) Have you changed medications since your No No last visit? Any new allergies or adverse reactions No No Had a fall/change in ADL's that may No No increase risk of falls Signs or symptoms of abuse and/or No No neglect since last visit Have you been in the hospital since your No No last visit? Has dressing in place as prescribed Yes Yes Has compression in place as prescribed Yes Yes Has offloadiing in place as prescribed Yes Yes Experienced any changes in pain level or No No management Left Footwear Regular Shoe Regular Shoe Right Footwear Surgical Shoe Surgical Shoe with pressure with pressure relief insole relief insole Pain Scale: 0-10 Numeric Is Patient Pain Free? Yes Yes WC - Nurse 1 - General Ulcer Measurement Start: 03/08/24 10:21 Freq: Status: Active Protocol: Activity Type Activity Date Activity User E-sign Co-sign Detail Recorded Client Recorded Date Recorded By Document 03/08/24 10:23 DS [id number] 03/08/24 10:30 DS Document 03/15/24 10:13 KW [id number] 03/15/24 10:21 KW 03/08/24 03/15/24 10:23 10:13 Wound Center Nurse 1 #7 R Heel -Combined with other wound No -Current Size (cm) - Length 0.6 0.1 -Current Size (cm) - Width 1.0 0.1 -Current Size (cm) - Depth 0.1 0.1 -Total Square Cm 0.60 0.01 -Date of Last Picture (Recall this 03/15/24 field) -Photo Taken No -Tunneling No -Undermining/Tunneling No -Circular Undermining No -Exudate Amt None Present Small -Exudate Type Serosanguineous -Wound Margin Distinct, Outline Attached -Granulation Amt Small (1-33%) -Granulation Quality [place] -Necrosis Amt Medium (34-66%) -Necrotic Tissue Type Adherent Slough -Texture (Shikha-wound Skin Appearance) Assessed Assessed -Moisture (Shikha-wound Skin Appearance) Assessed Assessed -Color (Shikha-wound Skin Appearance) Assessed Assessed -Temperature (Shikha-wound Skin No Abnormality No Abnormality Appearance) (Pt Warm) (Pt Warm) -Tenderness on Palpation (Shikha-wound No Skin Appearance) -Ulcer Cleansing Soap and Water Rinsed/ Irrigated with Saline -Foul Odor after Cleansing No No -Anesthetic Used 5% Lidocaine 5% Lidocaine Gel Gel Right Calf (cm) 35 Right Ankle (cm) 22.5 WC - Nurse 2 - General Ulcer CM Notes Start: 03/08/24 10:21 Freq: Status: Active Protocol: Activity Type Activity Date Activity User E-sign Co-sign Detail Recorded Client Recorded Date Recorded By Document 03/08/24 10:44 [facility] [id number] 03/08/24 10:48 [facility] Document 03/15/24 10:51 [facility] [id number] 03/15/24 10:54 [facility] 03/08/24 03/15/24 10:44 10:51 Wound Center Nurse 2 #7 R Heel -Time 10:44 10:52 -Post Debridement (cm) - Length 0.1 0 -Post Debridement (cm) - Width 0.1 0 -Post Debridement (cm) - Depth 0.1 0 -Total Square (Post) (cm) 0.01 0 -Area of Debridement (cm) - Length 0.1 0 -Area of Debridement (cm) - Width 0.1 0 -Total Square (Area) (cm) 0.01 0 -Wound/Ulcer Outcome Not Healed Healed- Epithelialized -Bleeding Controlled with NA NA Pain Scale: 0-10 Numeric Is Patient Pain Free? Yes Yes WC - Nurse 3 - General Ulcer D/C NN Start: 03/08/24 10:21 Freq: Status: Active Protocol: Activity Type Activity Date Activity User E-sign Co-sign Detail Recorded Client Recorded Date Recorded By Document 03/08/24 11:00 DS [id number] 03/08/24 11:07 DS Document 03/15/24 10:58 [facility] [id number] 03/15/24 10:59 BM 03/08/24 03/15/24 11:00 10:58 Wound Care Center Nurse 3 #7 R Heel -Primary Dressing Applied Mepilex Border -Mepilex Border 1 ble -Tubular Bandage Single Layer -Size of Tubigrip Used Size E -Size E ($) 2 Right -Tubular Bandage Single Layer -Size of Tubigrip Used Size D -Size D ($) 1 Left -Tubular Bandage Single Layer -Size of Tubigrip Used Size D -Size D ($) 1 Treatment Response Procedure Tolerated Well Pain Scale: 0-10 Numeric Is Patient Pain Free? 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 DOS 11/22/2023. POD #118 He is just over 3 months out from surgery Amputation site remains well healed with cicatrix noted. No signs of infection. Right heel ulceration did not undergo debridement as noted in the clinical panel above. Predebridement measurement 0.1 cm x 0.1 cm x 0.1 cm. Postdebridement measurement 0.1 cm x 0.1 cm x 0.1 cm. There is newly epithelialized skin overlying the site however skin is still friable. EpiFix graft #5 applied to the ulcerative bed (02/16/24). Will refrain from application as there is epithelializing skin over the ulcer site. Overall healing well. Protective dressing placed over the ulcer site and he will change dressing daily to pad and protect friable skin. Heel ulceration demonstrates decrease in size versus previous visit. Overall doing well and continues almost closed. Discussed continued diet for glycemic control with adequate protein intake to aid in wound healing. At this time he is permitted to continue protective weightbearing to the right foot in surgical shoe. Will continue protective weightbearing for next week with likely transition to diabetic shoe gear at his next visit. Has been approved for advanced wound care product, EpiFix and will continue applications pending status. Discussed signs and symptoms of infection with the patient and family today. Discussed if he notices increasing redness around the ulcerative site that moves up the leg, purulent drainage from the wound site, increasing foul odor from the wound site, or if he experiences fever greater than 101 degree accompanied by nausea, vomiting, chills that these are signs of a progressing infection and he should report to the ED for IV antibiotics and further evaluation. He is understanding of this today. Patient's family voices understanding of this as well. The following work up and care recommendations were made: Dressing: EpiFix, Adaptic touch, Steri-Strips, dry sterile dressing. Change outer dressing as needed. Wash: Will not get site wet Tissue growth optimization: EpiFix Right heel Offload: Will remain nonweightbearing to the right lower extremity to aid in offloading of the right heel ulceration. Vascular: DP and PT pulses palpable with adequate capillary fill time. Does continue to follow with Dr. Joseph. Edema: No signs of edema Infection: No signs of infection Pain: Patient has diabetic peripheral polyneuropathy and thus insensate. Host factors: DM type II with peripheral polyneuropathy, peripheral vascular disease Prognosis is good at this time and he is healing well. I answered all the patient's questions. To return to the wound healing center in 1 week or call sooner if the patient has any questions or concerns.
== END 2024-03-26 15:22 | disposition home or self-care (01) ==
LOC: WC 10:45
PROVIDERS: PCP Family Medicine; Referring Provider Student in an Organized Health Care Education/Training Program; Visit Provider Student in an Organized Health Care Education/Training Program
DX: E11.621 Type 2 diabetes mellitus with foot ulcer (principal); L97.412 Non-pressure chronic ulcer of right heel and midfoot with fat layer exposed; Z89.431 Acquired absence of right foot; E11.51 Type 2 diabetes mellitus with diabetic peripheral angiopathy without gangrene; E11.42 Type 2 diabetes mellitus with diabetic polyneuropathy
CPT/HCPCS: 99213; G0463